=== PATIENT | female | born 1950 | race Caucasian/White ===

== ENCOUNTER 2021-05-11 07:53 | Emergency (ER) | payer MEDICARE, BC ==
[2021-05-11] MEDS ORDERED: Ondansetron 4 MG/2 ML SDV IVPUSH ONE (08:23)
[2021-05-11] MEDS ORDERED: Sodium Chloride 0.9% 10 ML Syringe FLUSH PRN (08:23)
[2021-05-11] MEDS ORDERED: Dexamethasone 4 MG/ML SDV IVPUSH ONE (08:26)
[2021-05-11] MEDS ORDERED: Sodium Chloride 0.9% 1,000 ML IV SCH (08:30)
--- NOTE | 2021-05-11 08:34 | EDM.PDOC ---
ED HPI GENERAL MEDICAL PROBLEM - General Chief Complaint: Respiratory Problem Stated Complaint: COVID+ SOB Time Seen by Provider: 05/11/21 08:10 Source of Information: Reports: Patient History Limitations: Reports: No Limitations - History of Present Illness INITIAL COMMENTS - FREE TEXT/NARRATIVE: The patient presents with a cough, generalized weakness and hematuria. She was diagnosed with COVID 19 on Wednesday and is not feeling worse. She says she has a cough, generalized weakness and pain in her throat. She has no chest pain. She does not feel short of breath. She has no abdominal pain. She has some nausea. She has no fever or chills. She also has hematuria. She says she was recently diagnosed with a kidney stone. She was put on flomax but never had a chance to get the prescription filled. She has no flank pain at this time. Her had COVID 19 and he got REGEN-COV. She said he was down for a day and she does not want the REGEN-COV. She feels it was that and not the virus that made him really sick for a day. She has a history of CAD with a stent and CABG. She also has a history of HTN. Onset: Gradual Duration: Day(s): (5) Location: Reports: Other (throat) Quality: Reports: Sharp Severity: Moderate Improves with: Reports: None Worsens with: Reports: None Associated Symptoms: Reports: Cough, Nausea/Vomiting. Denies: Chest Pain, Fever/Chills, Headaches, Shortness of Breath Generalized Pain Score (Numeric/FACES): 5 - Related Data Allergies Allergy/AdvReac Type Severity Reaction Status Date / Time amoxicillin Allergy Nausea and Verified 05/11/21 08:14 Vomiting clopidogrel bisulfate Allergy Rash Verified 05/11/21 08:14 [From Plavix] tetracycline Allergy Rash Verified 05/11/21 08:14 Home Meds: Home Meds Furosemide [Lasix] 20 mg PO DAILY 05/11/21 [History] Isosorbide Mononitrate [Imdur] 60 mg PO DAILY 05/11/21 [History] LORazepam [Ativan] 1 mg PO TID 05/11/21 [History] Metoprolol Succinate 50 mg PO DAILY 05/11/21 [History] atorvaSTATin [Lipitor] 40 mg PO DAILY 05/11/21 [History] cephALEXin [Keflex] 500 mg PO BID #10 cap 05/11/21 [Rx] dexAMETHasone [Dexamethasone] 6 mg PO Q6H #12 tab 05/11/21 [Rx] Past Medical History HEENT History: Reports: Cataract, Impaired Vision Cardiovascular History: Reports: [place], Stents Genitourinary History: Reports: Renal Calculus - Infectious Disease History Infectious Disease History: Reports: Novel Coronavirus Social & Family History - Tobacco Use Tobacco Use Status *Q: Never Tobacco User Second Hand Smoke Exposure: No - Caffeine Use Caffeine Use: Reports: Coffee - Recreational Drug Use Recreational Drug Use: No ED ROS GENERAL - Review of Systems Review Of Systems: See Below Constitutional: Reports: Malaise, Weakness, Fatigue. Denies: Fever, Chills HEENT: Reports: No Symptoms Respiratory: Reports: Cough. Denies: Shortness of Breath Cardiovascular: Reports: No Symptoms Endocrine: Reports: No Symptoms GI/Abdominal: Reports: Nausea. Denies: Abdominal Pain, Vomiting : Reports: Hematuria Musculoskeletal: Reports: No Symptoms ED EXAM, GENERAL - Physical Exam Exam: See Below Exam Limited By: No Limitations General Appearance: Alert, No Apparent Distress Ears: Normal External Exam Nose: Normal Inspection Throat/Mouth: Other (Dry mucus membranes and mild erythema of the oropharynx) Head: Atraumatic, Normocephalic Neck: Normal Inspection, Supple, Non-Tender Respiratory/Chest: No Respiratory Distress, Lungs Clear, Normal Breath Sounds Cardiovascular: Regular Rate, Rhythm, No Edema, No Murmur GI/Abdominal: Soft, Non-Tender, No Organomegaly, No Mass Back Exam: Normal Inspection Extremities: Normal Inspection Course - Vital Signs Last Recorded V/S: Last Vital Signs Temp 97.4 F 05/11/21 08:12 Pulse 87 05/11/21 08:12 Resp 18 05/11/21 08:12 BP 133/79 05/11/21 08:12 Pulse Ox 92 L 05/11/21 08:12 - Orders/Labs/Meds Orders: Active Orders 24 hr Category Date Time Status Cardiac Monitoring [RC] . DIRECTED Care 05/11/21 08:24 Active Oxygen Therapy [RC] PRN Care 05/11/21 08:24 Active Peripheral IV Care [RC] . DIRECTED Care 05/11/21 08:25 Active CULTURE URINE [MREF] Stat Lab 05/11/21 08:40 Received Sodium Chloride 0.9% [Normal Saline] 1,000 ml Med 05/11/21 08:30 Active IV .BOLUS Sodium Chloride 0.9% [Saline Flush] Med 05/11/21 08:23 Active 10 ml FLUSH ASDIRECTED PRN cefTRIAXone [Rocephin] 1 gm Med 05/11/21 09:36 Active Sodium Chloride 0.9% [Normal Saline] 100 ml IV ONETIME ED Antiemetic Medication Reflex [OM.PC] Stat Oth 05/11/21 08:24 Ordered Peripheral IV Insertion Adult [OM.PC] Stat Oth 05/11/21 08:23 Ordered Medication Orders Sodium Chloride (Normal Saline) 1,000 mls @ 1,000 mls/hr IV .BOLUS RIKY Last Admin: 05/11/21 08:36 Dose: 1,000 mls/hr Documented by: OMEGA Ceftriaxone Sodium 1 gm/ (Sodium Chloride) 100 mls @ 200 mls/hr IV ONETIME ONE Stop: 05/11/21 10:05 Last Admin: 05/11/21 09:53 Dose: 200 mls/hr Documented by: TIMOTHY Sodium Chloride (Sodium Chloride 0.9% 10 Ml Syringe) 10 ml FLUSH ASDIRECTED PRN PRN Reason: Keep Vein Open Last Admin: 05/11/21 08:37 Dose: 10 ml Documented by: OMEGA Labs: Laboratory Tests 05/11/21 05/11/21 05/11/21 Range/Units 08:20 08:20 08:20 WBC 4.50 (3.98-10.04) K/mm3 RBC 3.73 L (3.98-5.22) M/mm3 Hgb 11.1 L (11.2-15.7) gm/dl Hct 33.9 L (34.1-44.9) % MCV 90.9 (79.4-94.8) fl MCH 29.8 (25.6-32.2) pg MCHC 32.7 (32.2-35.5) g/dl RDW Std Deviation 49.0 H (36.4-46.3) fL Plt Count 175 L (182-369) K/mm3 MPV 10.6 (9.4-12.3) fl Neut % (Auto) 79.2 H (34.0-71.1) % Lymph % (Auto) 12.4 L (19.3-51.7) % [place] % (Auto) 7.8 (4.7-12.5) % Eos % (Auto) 0 L (0.7-5.8) Baso % (Auto) 0.2 (0.1-1.2) % Neut # (Auto) 3.56 (1.56-6.13) K/mm3 Lymph # (Auto) 0.56 L (1.18-3.74) K/mm3 [place] # (Auto) 0.35 (0.24-0.36) K/mm3 Eos # (Auto) 0.00 L (0.04-0.36) K/mm3 Baso # (Auto) 0.01 (0.01-0.08) K/mm3 PT 10.2 (9.7-12.0) SECONDS INR 0.95 APTT 27.9 (21.7-31.4) SECONDS D-Dimer, Quantitative 2.39 H (0.19-0.50) mg/L Sodium 136 (136-145) mEq/L Potassium 3.9 (3.5-5.1) mEq/L Chloride 100 (98-107) mEq/L Carbon Dioxide 23 (21-32) mEq/L Anion Gap 16.9 H (5-15) BUN 9 (7-18) mg/dL Creatinine 0.9 (0.55-1.02) mg/dL Est Cr Clr Drug Dosing 51.59 mL/min Estimated GFR (MDRD) > 60 (>60) mL/min BUN/Creatinine Ratio 10.0 L (14-18) Glucose 111 H (70-99) mg/dL Calcium 8.0 L (8.5-10.1) mg/dL Total Bilirubin 0.8 (0.2-1.0) mg/dL AST 64 H (15-37) U/L ALT 74 H (14-59) U/L Alkaline Phosphatase 50 (46-116) U/L C-Reactive Protein 2.4 H* (<1.0) mg/dL Total Protein 6.6 (6.4-8.2) g/dl Albumin 3.3 L (3.4-5.0) g/dl Globulin 3.3 gm/dL Albumin/Globulin Ratio 1.0 (1-2) Urine Color (Yellow) Urine Appearance (Clear) Urine pH (5.0-8.0) Ur Specific [place] (1.005-1.030) Urine Protein (Negative) Urine Glucose (UA) (Negative) Urine Ketones (Negative) Urine Occult Blood (Negative) Urine Nitrite (Negative) Urine Bilirubin (Negative) Urine Urobilinogen (0.2-1.0) Ur Leukocyte Esterase (Negative) Urine RBC (0-5) /hpf Urine WBC (0-5) /hpf Ur Epithelial Cells (0-5) /hpf Urine Bacteria (FEW) /hpf Urine Mucus (FEW) /hpf 05/11/21 Range/Units 08:40 WBC (3.98-10.04) K/mm3 RBC (3.98-5.22) M/mm3 Hgb (11.2-15.7) gm/dl Hct (34.1-44.9) % MCV (79.4-94.8) fl MCH (25.6-32.2) pg MCHC (32.2-35.5) g/dl RDW Std Deviation (36.4-46.3) fL Plt Count (182-369) K/mm3 MPV (9.4-12.3) fl Neut % (Auto) (34.0-71.1) % Lymph % (Auto) (19.3-51.7) % [place] % (Auto) (4.7-12.5) % Eos % (Auto) (0.7-5.8) Baso % (Auto) (0.1-1.2) % Neut # (Auto) (1.56-6.13) K/mm3 Lymph # (Auto) (1.18-3.74) K/mm3 [place] # (Auto) (0.24-0.36) K/mm3 Eos # (Auto) (0.04-0.36) K/mm3 Baso # (Auto) (0.01-0.08) K/mm3 PT (9.7-12.0) SECONDS INR APTT (21.7-31.4) SECONDS D-Dimer, Quantitative (0.19-0.50) mg/L Sodium (136-145) mEq/L Potassium (3.5-5.1) mEq/L Chloride (98-107) mEq/L Carbon Dioxide (21-32) mEq/L Anion Gap (5-15) BUN (7-18) mg/dL Creatinine (0.55-1.02) mg/dL Est Cr Clr Drug Dosing mL/min Estimated GFR (MDRD) (>60) mL/min BUN/Creatinine Ratio (14-18) Glucose (70-99) mg/dL Calcium (8.5-10.1) mg/dL Total Bilirubin (0.2-1.0) mg/dL AST (15-37) U/L ALT (14-59) U/L Alkaline Phosphatase (46-116) U/L C-Reactive Protein (<1.0) mg/dL Total Protein (6.4-8.2) g/dl Albumin (3.4-5.0) g/dl Globulin gm/dL Albumin/Globulin Ratio (1-2) Urine Color Red H (Yellow) Urine Appearance Slt cloudy H (Clear) Urine pH 7.0 (5.0-8.0) Ur Specific [place] 1.015 (1.005-1.030) Urine Protein 3+ H (Negative) Urine Glucose (UA) Negative (Negative) Urine Ketones Negative (Negative) Urine Occult Blood 3+ H (Negative) Urine Nitrite Negative (Negative) Urine Bilirubin 1+ H (Negative) Urine Urobilinogen 0.2 (0.2-1.0) Ur Leukocyte Esterase 1+ H (Negative) Urine RBC >100 H (0-5) /hpf Urine WBC 5-10 H (0-5) /hpf Ur Epithelial Cells 0-5 (0-5) /hpf Urine Bacteria Moderate H (FEW) /hpf Urine Mucus Not seen (FEW) /hpf Meds: Medications Generic Name Dose Route Start Last Admin Trade Name Freq PRN Reason Stop Dose Admin Sodium Chloride 1,000 mls @ 1,000 mls/hr 05/11/21 08:30 05/11/21 08:36 Normal Saline IV 1,000 mls/hr .BOLUS RIKY Administration Ceftriaxone Sodium 1 gm/ 100 mls @ 200 mls/hr 05/11/21 09:36 05/11/21 09:53 Sodium Chloride IV 05/11/21 10:05 200 mls/hr ONETIME ONE Administration Sodium Chloride 10 ml 05/11/21 08:23 05/11/21 08:37 Sodium Chloride 0.9% 10 Ml Syringe FLUSH 10 ml ASDIRECTED PRN Administration Keep Vein Open Discontinued Medications Generic Name Dose Route Start Last Admin Trade Name Sergey PRN Reason Stop Dose Admin Dexamethasone 6 mg 05/11/21 08:26 05/11/21 08:37 Dexamethasone 4 Mg/Ml Sdv IVPUSH 05/11/21 08:27 6 mg ONETIME ONE Administration Ondansetron HCl 4 mg 05/11/21 08:23 05/11/21 08:36 Ondansetron 4 Mg/2 Ml Sdv IVPUSH 05/11/21 08:24 4 mg ONETIME ONE Administration - Re-Assessments/Exams Free Text/Narrative Re-Assessment/Exam: 05/11/21 08:36 I ordered an IV NS 1L bolus, zofran 4mg IV, labs, UA, CXR and a CT of her abdomen and pelvis without contrast. 05/11/21 09:59 Her CXR shows bilateral COVID pneumonia. Her WBC was normal. Her Hgb was low at 11.1. Her D-dimer was elevated at 2.39. Her anion gap was elevated at 16.4. Her AST is elevated at 64. Her ALT is elevated at 74. Her CRP is 2.4. Her UA shows a UTI. I have ordered a urine culture and rocphin [address] shows patchy increased density on both sides of the chest most likely representing prominent areas of scarring but please exclude any symptoms of infection for pneumonia. Heart is enlarged with coronary artery calcification. Small nonobstructing stone within the lower right kidney. No ureteral dilatation or ureteral stone is seen. Small amount of free fluid within the pelvis which is nonspecific. Slightly dilated urine filled bladder probably due to non-voiding. Slight adenopathy within the upper right retroperitoneum but no other adenopathy within the upper right retroperitoneum but no other adenopathy is seen and this most likely is incidental. Follow up CT study could be obtained in 6 months to confirm stability. Other findings believed to be incidental. She is still oxygenating well. I gave her a dose of dexamethasone here and I will give her a prescription for more along with some keflex. Departure - Departure Time of Disposition: 10:25 Disposition: Home, Self-Care 01 Condition: Good Clinical Impression: COVID-19, Pneumonia due to COVID-19 virus UTI (urinary tract infection) Qualifiers: Urinary tract infection type: site unspecified Hematuria presence: without hematuria Qualified Code(s): N39.0 - Urinary tract infection, site not specified - Discharge Information *PRESCRIPTION DRUG MONITORING PROGRAM REVIEWED*: Not Applicable *COPY OF PRESCRIPTION DRUG MONITORING REPORT IN PATIENT CAMILO: Not Applicable Prescriptions: dexAMETHasone [Dexamethasone] 6 mg PO Q6H #12 tab cephALEXin [Keflex] 500 mg PO BID #10 cap Forms: ED Department Discharge Additional Instructions: Drink plenty of fluids. Take tylenol or motrin for any fever or pain. Take the dexamethasone 6mg or 1 1/2 pill by mouth daily until gone. Take the keflex 2 times per day for 5 days. Check your pulse oximetry a few times per day. If you are consistently below 90% please return. Please return if you feel worse. It has been helping with breathing if you can lay on you stomach. Try that through out the day. Follow up with your provider. Sepsis Event Note (ED) - Focused Exam Vital Signs: Vital Signs Temp Pulse Resp BP Pulse Ox 05/11/21 08:12 97.4 F 87 18 133/79 92 L - My Orders Last 24 Hours: My Active Orders 05/11/21 08:23 Sodium Chloride 0.9% [Saline Flush] 10 ml FLUSH ASDIRECTED PRN Peripheral IV Insertion Adult [OM.PC] Stat 05/11/21 08:24 Cardiac Monitoring [RC] . DIRECTED Oxygen Therapy [RC] PRN ED Antiemetic Medication Reflex [OM.PC] Stat 05/11/21 08:25 Peripheral IV Care [RC] . DIRECTED 05/11/21 08:30 Sodium Chloride 0.9% [Normal Saline] 1,000 ml IV .BOLUS 05/11/21 08:40 CULTURE URINE [MREF] Stat 05/11/21 09:36 cefTRIAXone [Rocephin] 1 gm Sodium Chloride 0.9% [Normal Saline] 100 ml IV ONETIME - Assessment/Plan Last 24 Hours: My Active Orders 05/11/21 08:23 Sodium Chloride 0.9% [Saline Flush] 10 ml FLUSH ASDIRECTED PRN Peripheral IV Insertion Adult [OM.PC] Stat 05/11/21 08:24 Cardiac Monitoring [RC] . DIRECTED Oxygen Therapy [RC] PRN ED Antiemetic Medication Reflex [OM.PC] Stat 05/11/21 08:25 Peripheral IV Care [RC] . DIRECTED 05/11/21 08:30 Sodium Chloride 0.9% [Normal Saline] 1,000 ml IV .BOLUS 05/11/21 08:40 CULTURE URINE [MREF] Stat 05/11/21 09:36 cefTRIAXone [Rocephin] 1 gm Sodium Chloride 0.9% [Normal Saline] 100 ml IV ONETIME
--- NOTE | 2021-05-11 09:33 | CT ---
CT abdomen and pelvis Technique: Multiple axial sections were obtained from above the dome of the diaphragm inferiorly through the pubic symphysis. Intravenous and oral contrast were not utilized. Study has been performed as a ureteral stone protocol. Reconstructed coronal and sagittal images were obtained. Comparison: No prior abdominal imaging. Findings: Patchy areas of increased density are seen on both sides of the chest. Findings could represent pneumonia although findings could also represent prominent areas of parenchymal scarring. Please correlate with the patient's symptoms. Heart is enlarged. Coronary artery calcification is noted. Small 2.2 mm stone is noted within the inferior right kidney. No other renal calculi are seen. No ureteral dilatation or ureteral stone is seen. No bladder calculi are noted. Bladder is somewhat dilated most likely due to lack of voiding. Liver contains no focal abnormality. Spleen appears within normal limits. Adrenal gland on the left side shows a nodule which most likely represents a benign adenoma measuring 1.7 cm. Pancreas shows no discrete abnormality. Gallbladder contains no calcified gallstones. Abdominal aorta shows atherosclerotic change which continues into the iliac vessels with no aneurysm. Slight adenopathy is noted within the upper retroperitoneum of the abdomen. Largest lymph node measures 1.5 cm. No other retroperitoneal or mesenteric abnormalities are seen. Appendix is seen which is normal. No pelvic mass or adenopathy is appreciated. Small amount of free fluid is noted within the pelvis. Bone window settings were reviewed which show scattered degenerative change throughout the spine as well as within both sacroiliac joints. Degenerative change is seen with the left hip with right hip prosthesis also noted. Impression: 1. Patchy increased density on both sides of the chest most likely representing prominent areas of scarring but please exclude any symptoms of infection for pneumonia. 2. Heart is enlarged with coronary artery calcification. 3. Small nonobstructing stone within the lower right kidney. No ureteral dilatation or ureteral stone is seen. 4. Small amount of free fluid within the pelvis which is nonspecific. 5. Slightly dilated urine filled bladder probably due to non-voiding. 6. Slight adenopathy within the upper right retroperitoneum but no other adenopathy is seen and this most likely is incidental. Follow-up CT study could be obtained in 6 months to confirm stability. 7. Other findings believed to be incidental. Diagnostic code #3
[2021-05-11] MEDS ORDERED: cefTRIAXone 1 GM in Sodium Chloride 0.9% 100 ML IV ONE (09:36)
--- NOTE | 2021-05-11 09:38 | CR ---
Chest: Portable view of the chest was obtained. Comparison: No prior chest imaging is available. Patchy areas of increased density are seen on both sides of the chest. Uncertain if this is chronic or due to numerous areas of pneumonia. Heart is enlarged. Tortuous thoracic aorta is seen. Bony structures are grossly intact. Impression: 1. Patchy areas of increased density on both sides of the chest. Uncertain if this is due to diffuse pneumonia (please exclude COVID disease) or to prominent scarring. 2. Cardiomegaly. Diagnostic code #3
== END 2021-05-11 10:50 | disposition home or self-care (01) ==
LOC: JD.ED 07:53
DX: U07.1 COVID-19 (principal); J12.82 Pneumonia due to coronavirus disease 2019; N39.0 Urinary tract infection, site not specified; I25.2 Old myocardial infarction; Z88.0 Allergy status to penicillin; Z88.8 Allergy status to other drugs, medicaments and biological substances; Z88.1 Allergy status to other antibiotic agents; Z79.899 Other long term (current) drug therapy
CPT/HCPCS: 36415; 71045; 74176; 80053; 81001; 85025; 85379; 85610; 85730; 86140; 87086; 87088; 87186; 96365; 96375; 99285; J0696; J1100; J2405; J7030; 99284

== ENCOUNTER 2021-05-14 08:49 | Emergency (ER) | payer MEDICARE, BC ==
[2021-05-14] MEDS ORDERED: Sodium Chloride 0.9% 10 ML Syringe FLUSH PRN ×2 (09:18→11:07)
--- NOTE | 2021-05-14 10:15 | CR ---
Chest: Portable view of the chest was obtained. Comparison: Prior chest x-ray of 05/11/21. Patchy areas of increased density are seen on both sides of the chest. Findings are without definite change from previous exam. Heart size is at the upper limits of normal. Upper mediastinum is normal. Mild scoliosis is noted within the spine with mild scattered degenerative change. Impression: 1. Patchy areas of increased density on both sides of the chest. Please correlate if patient is Covid positive. Findings are stable from prior chest x-ray. 2. Other findings believed to be chronic as noted above. Diagnostic code #3
[2021-05-14] MEDS: Morphine 4 MG/ML Syringe IVPUSH PRN ×2 (10:29→12:11)
--- NOTE | 2021-05-14 10:56 | EDM.PDOC ---
<Apolinar Devi - Last Filed: 05/15/21 20:50> ED HPI GENERAL MEDICAL PROBLEM - General Chief Complaint: Respiratory Problem Stated Complaint: COVID +/ KIDNEY PAIN Time Seen by Provider: 05/14/21 10:27 - Related Data Allergies Allergy/AdvReac Type Severity Reaction Status Date / Time amoxicillin Allergy Nausea and Verified 05/14/21 09:11 Vomiting clopidogrel bisulfate Allergy Rash Verified 05/14/21 09:11 [From Plavix] tetracycline Allergy Rash Verified 05/14/21 09:11 Home Meds: Home Meds Furosemide [Lasix] 20 mg PO DAILY 05/11/21 [History] Isosorbide Mononitrate [Imdur] 60 mg PO DAILY 05/11/21 [History] LORazepam [Ativan] 1 mg PO TID 05/11/21 [History] Metoprolol Succinate 50 mg PO DAILY 05/11/21 [History] atorvaSTATin [Lipitor] 40 mg PO DAILY 05/11/21 [History] cephALEXin [Keflex] 500 mg PO BID #10 cap 05/11/21 [Rx] dexAMETHasone [Dexamethasone] 6 mg PO Q6H #12 tab 05/11/21 [Rx] Departure - Departure Disposition: Home, Self-Care 01 Clinical Impression: Pneumonia due to COVID-19 virus UTI (urinary tract infection) Qualifiers: Urinary tract infection type: site unspecified Hematuria presence: without hematuria Qualified Code(s): N39.0 - Urinary tract infection, site not specified - Discharge Information <David Ortiz - Last Filed: 05/16/21 07:36> ED HPI GENERAL MEDICAL PROBLEM - History of Present Illness INITIAL COMMENTS - FREE TEXT/NARRATIVE: Patient arrived to ED by private vehicle Onset of symptoms was 1 week ago Endorses occurrence of: - body aches - right flank pain - cough - shortness of breath No fever, vomiting, diarrhea COVID-19 testing was positive 05/06/2021 Concerned about possible kidney stone due to flank pain Feels like symptoms are getting worse She was seen here 05/11/2021 and prescribed antibiotics for UTI but did not get prescription filled until yesterday Generalized Pain Score (Numeric/FACES): 7 Past Medical History HEENT History: Reports: Cataract, Impaired Vision Cardiovascular History: Reports: VA, Stents Genitourinary History: Reports: Renal Calculus - Infectious Disease History Infectious Disease History: Reports: Novel Coronavirus Social & Family History - Tobacco Use Tobacco Use Status *Q: Never Tobacco User Second Hand Smoke Exposure: No - Caffeine Use Caffeine Use: Reports: Coffee - Recreational Drug Use Recreational Drug Use: No ED ROS GENERAL - Review of Systems Review Of Systems: See Below Free Text/Narrative/Comment: Constitutional - no fever; malaise Eyes - no eye pain; no visual disturbance ENT - no rhinorrhea; no congestion; no epistaxis Cardiovascular - no chest pain Respiratory - shortness of breath; cough Gastrointestinal - no abdominal pain; no nausea; no vomiting; no diarrhea; flank pain Genitourinary - no dysuria Musculoskeletal - no neck pain; no back pain; no extremity injury; myalgia Neurological - no headache; no speech disturbance; no weakness ED EXAM, GENERAL - Physical Exam Exam: See Below Free Text/Narrative:: Constitutional - awake; alert; mild pain distress Head - no facial swelling or weakness Eyes - extra ocular motion intact; conjunctiva normal ENT - no nasal deformity; no epistaxis; normal phonation; mucus membranes moist Neck - no swelling Respiratory - normal respiratory effort; mild, bibasilar crackles; no wheezing; no stridor Cardiovascular - regular rhythm; normal rate; S1; S2; grade 1/6 systolic murmur GI/Abdomen - normal bowel sounds; soft; no tenderness; no rebound; no guarding; no mass; right CVA tenderness Musculoskeletal - grossly normal strength and motion; no swelling or deformity Skin - warm; dry Neurologic - normal speech; no weakness Psychiatric - normal mood and affect; memory and attention normal Course - Vital Signs Text/Narrative:: . Considered etiologies included: COVID-19, dyspnea, pneumonia, flank pain, UTI, pyelonephritis, kidney stone Symptoms and examination were discussed Investigations were initiated Analgesic treatment was provided with morphine Consideration for monoclonal antibody infusion was discussed with patient Patient was provided the medication "Fact Sheet for Patients and Parents/C aregivers" for review This included statement that therapy was approved under emergent use authorization, with no certainty of benefit, and potential risks/adverse reactions Patient voiced understanding with no questions or concerns, and agreed to proceed with infusion Antibody infusion was completed without apparent adverse reactions Review of CT results with patient was delayed due to other ED patient care priorities Patient left ED without discharge instructions, and prior to discussion of CT results Urine culture results from 05/11/2021 indicated E. coli with sensitivity to cefazolin She had been prescribed cephalexin at that encounter, and no change in therapy was indicated Last Recorded V/S: Last Vital Signs Temp 36.3 C 05/14/21 09:09 Pulse 86 05/14/21 09:09 Resp 20 05/14/21 09:09 BP 147/76 H 05/14/21 09:09 Pulse Ox 91 L 05/14/21 09:09 - Orders/Labs/Meds Labs: Laboratory Tests 05/14/21 05/14/21 05/14/21 Range/Units 09:20 09:20 09:20 WBC 10.26 H (3.98-10.04) K/mm3 RBC 3.79 L (3.98-5.22) M/mm3 Hgb 11.2 (11.2-15.7) gm/dl Hct 34.6 (34.1-44.9) % MCV 91.3 (79.4-94.8) fl MCH 29.6 (25.6-32.2) pg MCHC 32.4 (32.2-35.5) g/dl RDW Std Deviation 48.2 H (36.4-46.3) fL Plt Count 252 D (182-369) K/mm3 MPV 10.3 (9.4-12.3) fl Neut % (Auto) 81.2 H (34.0-71.1) % Lymph % (Auto) 8.6 L (19.3-51.7) % Rhea % (Auto) 9.5 (4.7-12.5) % Eos % (Auto) 0 L (0.7-5.8) Baso % (Auto) 0.1 (0.1-1.2) % Neut # (Auto) 8.34 H (1.56-6.13) K/mm3 Lymph # (Auto) 0.88 L (1.18-3.74) K/mm3 Rhea # (Auto) 0.97 H (0.24-0.36) K/mm3 Eos # (Auto) 0.00 L (0.04-0.36) K/mm3 Baso # (Auto) 0.01 (0.01-0.08) K/mm3 Sodium 142 (136-145) mEq/L Potassium 3.8 (3.5-5.1) mEq/L Chloride 105 (98-107) mEq/L Carbon Dioxide 23 (21-32) mEq/L Anion Gap 17.8 H (5-15) BUN 15 (7-18) mg/dL Creatinine 0.9 (0.55-1.02) mg/dL Est Cr Clr Drug Dosing 51.59 mL/min Estimated GFR (MDRD) > 60 (>60) mL/min BUN/Creatinine Ratio 16.7 (14-18) Glucose 99 (70-99) mg/dL Calcium 8.3 L (8.5-10.1) mg/dL Total Bilirubin 0.9 (0.2-1.0) mg/dL AST 53 H (15-37) U/L ALT 114 H (14-59) U/L Alkaline Phosphatase 49 (46-116) U/L Troponin I < 0.017 (0.00-0.056) ng/mL Total Protein 6.7 (6.4-8.2) g/dl Albumin 3.1 L (3.4-5.0) g/dl Globulin 3.6 gm/dL Albumin/Globulin Ratio 0.9 L (1-2) Urine Color [place] H (Yellow) Urine Appearance Clear (Clear) Urine pH 7.5 (5.0-8.0) Ur Specific [place] 1.015 (1.005-1.030) Urine Protein 2+ H (Negative) Urine Glucose (UA) Negative (Negative) Urine Ketones Negative (Negative) Urine Occult Blood 3+ H (Negative) Urine Nitrite Negative (Negative) Urine Bilirubin Negative (Negative) Urine Urobilinogen 0.2 (0.2-1.0) Ur Leukocyte Esterase Negative (Negative) Urine RBC 50-75 H (0-5) /hpf Urine WBC 0-5 (0-5) /hpf Ur Squamous Epith Cells 0-5 (0-5) /hpf Urine Bacteria Few (FEW) /hpf Urine Mucus Few (FEW) /hpf Meds: Medications Discontinued Medications Generic Name Dose Route Start Last Admin Trade Name Freq PRN Reason Stop Dose Admin Diphenhydramine HCl 50 mg 05/14/21 11:49 Diphenhydramine 50 Mg/Ml Sdv IVPUSH ONETIME PRN hypersensitivity reaction Epinephrine HCl 0.3 mg 05/14/21 11:49 Epinephrine 1 Mg/Ml Sdv IM ONETIME PRN hypersensitivity reaction Famotidine 20 mg 05/14/21 11:49 Famotidine 20 Mg/2 Ml Sdv IVPUSH ONETIME PRN hypersensitivity reaction CASIRIVIMAB/IMDEVIMAB 10 ml/ 110 mls @ 220 mls/hr 05/14/21 11:49 05/14/21 12:11 Sodium Chloride IV 05/14/21 12:18 220 mls/hr ONETIME ONE Administration Iopamidol 100 ml 05/14/21 11:07 05/14/21 11:48 Iopamidol 612 Mg/Ml 100 Ml Bottle IVPUSH 05/14/21 11:08 100 ml ONETIME ONE Administration Methylprednisolone Sodium Succinate 125 mg 05/14/21 11:49 Methylprednisolone Sodium Succinate 125 Mg/2 Ml Sdv IVPUSH ONETIME PRN hypersensitivity reaction Morphine Sulfate 2 mg 05/14/21 10:22 05/14/21 12:11 Morphine 4 Mg/Ml Syringe IVPUSH 2 mg Q20M PRN Administration Pain Sodium Chloride 10 ml 05/14/21 09:18 05/14/21 09:31 Sodium Chloride 0.9% 10 Ml Syringe FLUSH 10 ml ASDIRECTED PRN Administration Keep Vein Open Sodium Chloride 10 ml 05/14/21 11:07 05/14/21 11:48 Sodium Chloride 0.9% 10 Ml Syringe FLUSH 10 ml ONETIME PRN Administration IV FLUSH Sodium Chloride 30 ml 05/14/21 12:00 Sodium Chloride 0.9% 10 Ml Syringe FLUSH ASDIRECTED RIKY - Radiology Interpretation Free Text/Narrative:: XR chest, AP portable, radiology interpretation: 1. Patchy areas of increased density on both sides of the chest. Please correlate if patient is Covid positive. Findings are stable from prior chest x- ray CT abdomen/pelvis, IV contrast, radiology interpretation: IMPRESSION: 1. Most prominent finding is abnormal perfusion within the mid and upper right kidney as well as dilated proximal right ureter with surrounding inflammatory change. Findings most likely represent severe pyelonephritis with ureteral change representing additional infection. 2. 2 small nonobstructing calculi within the right kidney 3. Stable findings of COVID pneumonia within both lungs 4. Stable lymph nodes within the posterior upper right abdomen. As mentioned on prior report, follow-up study is recommended in 6 months. 5. Other findings as described above are also stable. Departure - Departure Time of Disposition: 14:45 (left during treatment)
[2021-05-14] MEDS ORDERED: Iopamidol 612 MG/ML 100 ML Bottle IVPUSH ONE (11:07)
[2021-05-14] MEDS ORDERED: diphenhydrAMINE 50 MG/ML SDV IVPUSH PRN (11:49)
[2021-05-14] MEDS ORDERED: EPINEPHrine 1 MG/ML SDV IM PRN (11:49)
[2021-05-14] MEDS ORDERED: Famotidine 20 MG/2 ML SDV IVPUSH PRN (11:49)
[2021-05-14] MEDS ORDERED: methylPREDNISolone Sodium Succinate 125 MG/2 ML SDV IVPUSH PRN (11:49)
[2021-05-14] MEDS ORDERED: Sodium Chloride 0.9% 10 ML Syringe FLUSH SCH (12:00)
--- NOTE | 2021-05-14 12:56 | CT ---
CT abdomen and pelvis Technique: Multiple axial sections were obtained from above the dome of the diaphragm inferiorly through the pubic symphysis. Intravenous contrast was initially not utilized. Study was repeated after administration of intravenous contrast. Delayed images were obtained through the abdomen and pelvis. Reconstructed coronal and sagittal images were also obtained. Comparison: Prior CT abdomen and pelvis study of 05/11/21. Findings: Right kidney shows diffusely diminished perfusion within the mid and upper pole. This is most likely due to prominent pyelonephritis. There is mildly dilated proximal right ureter with surrounding inflammatory change also likely due to infection. Inferior pole of the right kidney appears normal in perfusion. Left kidney appears normal in perfusion. Two small nonobstructing calculi are noted within the inferior right kidney measuring around 2 to 3 mm. Left kidney shows no abnormal calcifications. Following contrast administration there is contrast being noted within both ureters as well as within the bladder. No findings of ureteral obstruction are seen. Visualized lung bases show diffuse increased density which appears similar to prior exam most likely representing stable COVID pneumonia. Liver contains no focal abnormality. Spleen is felt to be within normal limits. Gallbladder contains no calcified gallstones. Pancreas shows no discrete abnormality. Abdominal aorta shows atherosclerotic change without aneurysm. Left adrenal gland shows a small nodule measuring 1.7 cm most likely representing benign adenoma. Several lymph nodes are seen within the upper abdomen next to the retroperitoneum which are stable. No retroperitoneal adenopathy or mesenteric abnormalities are otherwise seen. Appendix is seen which is normal. No pelvic mass or adenopathy is seen. Bladder is somewhat dilated from urine. Bone window settings were reviewed which show previous surgery within the right hip. Degenerative change is seen scattered within the spine as well as within the sacroiliac joints. Mild joint space narrowing and cystic change are noted within the left hip. Impression: 1. Most prominent finding is abnormal perfusion within the mid and upper right kidney as well as dilated proximal right ureter with surrounding inflammatory change. Findings most likely represent severe pyelonephritis with ureteral change representing additional infection. 2. Two small nonobstructing calculi within the right kidney. 3. Stable findings of COVID pneumonia within both lungs. 4. Stable lymph nodes within the posterior upper right abdomen. As mentioned on prior report, follow-up study is recommended in 6 months. 5. Other findings as described above are also stable. Diagnostic code #3
== END 2021-05-14 14:45 | disposition home or self-care (01) ==
LOC: JD.ED 08:49
DX: U07.1 COVID-19 (principal); J12.82 Pneumonia due to coronavirus disease 2019; N39.0 Urinary tract infection, site not specified; I25.2 Old myocardial infarction; Z88.0 Allergy status to penicillin; Z88.8 Allergy status to other drugs, medicaments and biological substances; Z86.16 Personal history of COVID-19; Z79.899 Other long term (current) drug therapy
CPT/HCPCS: 36415; 71045; 74177; 80053; 81001; 84484; 85025; 96374; 96376; 99284; J2270; M0243; Q0243; Q9967

== ENCOUNTER 2021-07-11 05:07 | Inpatient (IN) | payer MEDICARE, BC ==
--- NOTE | 2021-07-11 05:24 | EDM.PDOC ---
<Fabien Huerta - Last Filed: 07/11/21 07:53> ED HPI GENERAL MEDICAL PROBLEM - General Chief Complaint: Cardiovascular Problem Stated Complaint: [facility] Time Seen by Provider: 07/11/21 05:19 - History of Present Illness INITIAL COMMENTS - FREE TEXT/NARRATIVE: 71-year-old female brought in by EMS with suspected worsening congestive heart failure. Patient was recently diagnosed with heart failure. She was found to be in A. fib and yesterday she was started on Cardizem CD 120 mg daily and was started on Eliquis. Her first dose of both these medications was yesterday evening. Prior to this the patient was taking Toprol-XL 50 mg tablets 1 twice daily. Further complicating patient's situation patient had a port placed about 2-1/2 weeks ago. She just started chemotherapy for bladder cancer that has spread outside the bladder. 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 Her is able to provide most the history with her [place] discharge instructions. She was seen in the clinic yesterday and was started on therapy for the A. fib it sounds like. At this time the patient denies any pain. Her biggest complaint is she just cannot get any rest and she is very tired. - Related Data Allergies Allergy/AdvReac Type Severity Reaction Status Date / Time clopidogrel bisulfate Allergy Rash Verified 07/11/21 05:22 [From Plavix] tetracycline Allergy Rash Verified 07/11/21 05:22 amoxicillin AdvReac Nausea and Verified 07/11/21 15:36 Vomiting Home Meds: Home Meds Furosemide [Lasix] 20 mg PO DAILY 05/11/21 [History] Isosorbide Mononitrate [Imdur] 60 mg PO BID 05/11/21 [History] LORazepam [Ativan] 1 mg PO TID PRN 05/11/21 [History] Metoprolol Succinate 75 mg PO BID 05/11/21 [History] atorvaSTATin [Lipitor] 40 mg PO DAILY 05/11/21 [History] Apixaban [Eliquis] 5 mg PO BID 07/11/21 [History] Diltiazem [Cardizem CD] 120 mg PO DAILY 07/11/21 [History] Ezetimibe [Zetia] 10 mg PO DAILY 07/11/21 [History] Magnesium 250 mg PO DAILY 07/11/21 [History] Morphine [MS Contin] 15 mg PO QPM 07/11/21 [History] Morphine [MS Contin] 30 mg PO BID 07/11/21 [History] Nitroglycerin [Nitrostat] 0.4 mg SL ASDIRECTED 07/11/21 [History] OLANZapine [ZyPREXA] 10 mg PO BEDTIME 07/11/21 [History] Ondansetron [Zofran] 8 mg PO TID PRN 07/11/21 [History] Prochlorperazine Maleate [Compazine] 10 mg PO QID PRN 07/11/21 [History] dexAMETHasone [Decadron] 4 mg PO ASDIRECTED 07/11/21 [History] oxyCODONE HCl/Acetaminophen [Oxycodone-Acetaminophen 5-325] 1 tab PO Q6HR PRN 07/11/21 [History] Past Medical History HEENT History: Reports: Cataract, Impaired Vision Cardiovascular History: Reports: OK, Stents Genitourinary History: Reports: Renal Calculus - Infectious Disease History Infectious Disease History: Reports: Novel Coronavirus Social & Family History - Caffeine Use Caffeine Use: Reports: Coffee ED ROS GENERAL - Review of Systems Review Of Systems: See Below Constitutional: Reports: Weakness, Fatigue HEENT: Reports: No Symptoms Respiratory: Reports: No Symptoms Cardiovascular: Denies: Chest Pain Endocrine: Reports: Fatigue GI/Abdominal: Reports: No Symptoms : Reports: No Symptoms Musculoskeletal: Reports: No Symptoms Skin: Reports: No Symptoms Neurological: Reports: No Symptoms Hematologic/Lymphatic: Denies: Easy Bleeding, Easy Bruising ED EXAM, GENERAL - Physical Exam Exam Limited By: Other (She is a little slow to answer questions and formulate her thoughts) General Appearance: Lethargic, Other (He has mild hypotension and a mild tachycardia her color is pale) Head: Atraumatic, Normocephalic Neck: Normal Inspection, Supple, Non-Tender, Full Range of Motion Respiratory/Chest: No Accessory Muscle Use, Decreased Breath Sounds, Crackles (Basilar crackles) Cardiovascular: No JVD (No significant JVD ), No Murmur, Tachycardia, Irre gularly Irregular GI/Abdominal: Normal Bowel Sounds, Soft, Non-Tender Back Exam: No: CVA Tenderness (L), CVA Tenderness (R) Extremities: Pedal Edema (3+ pitting edema bilaterally) Neurological: Alert, Slow to Respond Skin Exam: Warm, Dry, Intact Course - Re-Assessments/Exams Free Text/Narrative Re-Assessment/Exam: 07/11/21 07:35 [place] 1 call has no beds available initially I was concerned about a cardi ogenic shock however her white count came back at 22,000 her white count yesterday after being able to obtain her [place] labs showed a white count of 30,000. The patient was started on Eliquis late yesterday afternoon at approximately 9 PM the patient had significant large amounts of gross hematuria according to the this is clearing. Her hemoglobin hematocrit is low especially with her cardiac status. We will transfuse 2 units. Hold the Eliquis with the hematuria. Chest x-ray shows a right lower lobe infiltrate with a effusion the patient will receive 2 g of cefepime after blood cultures obtained. Patient was started on BiPAP and this seems to be helping somewhat the patient is certainly more comfortable. Even though she is in florid failure she will be given NS at 125 cc an hour. her potassium yesterday was 5.8 she will get 40 mg of IV Lasix. 07/11/21 07:40 At this time it is change of shift further care and disposition per Dr. Devi Departure - Departure Disposition: Admitted As Inpatient 66 Clinical Impression: Persistent atrial fibrillation with RVR, H/O primary malignant neoplasm of urinary bladder, Hyperkalemia, Volume depletion, Gross hematuria, Recurrent right pleural effusion Congestive heart failure Qualifiers: Heart failure type: unspecified Heart failure chronicity: acute Qualified Code(s): I50.9 - Heart failure, unspecified Metastatic cancer to lung Qualifiers: Laterality: right Qualified Code(s): C78.01 - Secondary malignant neoplasm of right lung Anemia Qualifiers: Anemia type: unspecified type Qualified Code(s): D64.9 - Anemia, unspecified Leukocytosis Qualifiers: Leukocytosis type: bandemia Qualified Code(s): D72.825 - Bandemia Pneumonia involving right lung Qualifiers: Pneumonia type: due to other aerobic Gram-negative bacteria Lung location: lower lobe of lung Qualified Code(s): J15.6 - Pneumonia due to other Gram- negative bacteria <Apolinar Devi - Last Filed: 07/11/21 16:28> ED EXAM, GENERAL - Physical Exam Exam: See Below Course - Vital Signs Last Recorded V/S: Last Vital Signs Temp 36.3 C 07/11/21 13:30 Pulse 149 H 07/11/21 14:32 Resp 16 07/11/21 14:30 BP 102/56 L 07/11/21 14:30 Pulse Ox 100 07/11/21 14:30 - Orders/Labs/Meds Orders: Active Orders 24 hr Category Date Time Status Admission Status [Patient Status] [ADT] Routine ADT 07/11/21 15:08 Active ABG [RT Arterial Blood Gases, ABG] [RC] Click to Edit Care 07/11/21 06:32 Active Bedrest Bedside Commode [RC] ASDIRECTED Care 07/11/21 15:39 Active Cardiac Monitoring [RC] CONTINUOUS Care 07/11/21 15:40 Active Oxygen Therapy [RC] PRN Care 07/11/21 15:40 Active RT BiPAP/CPAP [RC] ASDIRECTED Care 07/11/21 06:13 Active VTE/DVT Education [RC] PER UNIT ROUTINE Care 07/11/21 15:40 Active Vital Signs [RC] Q4H Care 07/11/21 15:40 Active BLOOD CULTURE [MREF] Stat Lab 07/11/21 06:58 Received BLOOD CULTURE [MREF] Stat Lab 07/11/21 07:00 Received CBC WITH AUTO DIFF [HEME] AM Lab 07/12/21 05:11 Ordered COMPREHENSIVE METABOLIC PN,CMP [CHEM] AM Lab 07/12/21 05:11 Ordered LACTIC ACID [CHEM] Stat Lab 07/11/21 15:50 Received MAGNESIUM [CHEM] AM Lab 07/12/21 05:11 Ordered Acetaminophen/oxyCODONE [Percocet 325-5 MG] Med 07/11/21 15:30 Active 1 tab PO Q6H PRN Diltiazem [Cardizem] 100 mg Med 07/11/21 08:15 Active Sodium Chloride 0.9% [Normal Saline AdvBag] 100 ml IV TITRATE Furosemide [Lasix] Med 07/11/21 09:00 Active 40 mg IVPUSH DAILY Isosorbide Mononitrate [Imdur] Med 07/11/21 21:00 Active 60 mg PO BID LORazepam [Ativan] Med 07/11/21 15:30 Active 1 mg PO TID PRN Magnesium Oxide Med 07/12/21 09:00 Active 400 mg PO DAILY Metoprolol Succinate [Toprol XL] Med 07/11/21 21:00 Active 75 mg PO BID Morphine [MS Contin] Med 07/12/21 12:00 Active 15 mg PO DAILY@1200 Morphine [MS Contin] Med 07/11/21 20:00 Active 30 mg PO BID@0400,2000 OLANZapine Med 07/11/21 21:00 Pending 10 mg PO BEDTIME Ondansetron [Zofran ODT] Med 07/11/21 15:30 Active 8 mg PO TID PRN Prochlorperazine [Compazine] Med 07/11/21 15:30 Active 10 mg PO QID PRN Sodium Chloride 0.9% [Normal Saline] 1,000 ml Med 07/11/21 07:30 Active IV ASDIRECTED cefTRIAXone [Rocephin] 2 gm Med 07/12/21 09:00 Active Sodium Chloride 0.9% [Normal Saline AdvBag] 100 ml IV Q24H Blood Culture x2 Reflex Set [OM.PC] Stat Ot 07/11/21 06:31 Ordered Transfuse PRBC [Transfuse Red Blood Cells] [COMM] Stat Ot 07/11/21 07:27 Ordered VTE Mechanical Contraindications [AST] Per Unit Routine Oth 07/11/21 15:39 Ordered VTE Pharmacological Contraindications [AST] Per Unit Oth 07/11/21 15:39 Ordered Routine Resuscitation Status Routine Resus Stat 07/11/21 15:39 Ordered Medication Orders Furosemide (Furosemide 40 Mg/4 Ml Vial) 40 mg IVPUSH DAILY RIKY Last Admin: 07/11/21 07:32 Dose: 40 mg Documented by: FOSTCHR Sodium Chloride (Normal Saline) 1,000 mls @ 75 mls/hr IV ASDIRECTED RIKY Last Admin: 07/11/21 07:29 Dose: 125 mls/hr Documented by: FOSTCHR Diltiazem HCl 100 mg/ Sodium (Chloride) 100 mls @ 10 mls/hr IV TITRATE RIKY; Protocol Last Admin: 07/11/21 09:18 Dose: 10 mg/hr, 10 mls/hr Documented by: FOSTCHR Ceftriaxone Sodium 2 gm/ (Sodium Chloride) 100 mls @ 200 mls/hr IV Q24H RIKY Diltiazem HCl 100 mg/ Sodium (Chloride) 100 mls @ 10 mls/hr IV TITRATE [facility] Isosorbide Mononitrate (Isosorbide Mononitrate 60 Mg Tab.Er) 60 mg PO BID [facility] Lorazepam (Lorazepam 1 Mg Tab) 1 mg PO TID PRN PRN Reason: Anxiety Magnesium Oxide (Magnesium Oxide 400 Mg Tab) 400 mg PO DAILY [facility] Metoprolol Succinate (Metoprolol Succinate 25 Mg Tab.Er) 75 mg PO BID [facility] Morphine Sulfate (Morphine 15 Mg Tab.Er) 15 mg PO DAILY@1200 [facility] Morphine Sulfate (Morphine 15 Mg Tab.Er) 30 mg PO BID@0400,2000 [facility] Non-Formulary Medication (Olanzapine) 10 mg PO BEDTIME [facility] Nystatin (Nystatin Susp 100,000 Unit/Ml 5 Ml Ud Cup) 5 ml PO TID RIKY Ondansetron HCl (Ondansetron 4 Mg Tab.Dis) 8 mg PO TID PRN PRN Reason: Nausea Oxycodone/Acetaminophen (Acetaminophen/Oxycodone 325-5 Mg Tab) 1 tab PO Q6H PRN PRN Reason: Pain (severe 7-10) Prochlorperazine Maleate (Prochlorperazine 5 Mg Tab) 10 mg PO QID PRN PRN Reason: Vomiting Labs: Laboratory Tests 07/11/21 07/11/21 07/11/21 Range/Units 05:42 05:42 05:42 WBC 22.02 H (3.98-10.04) K/mm3 RBC 2.85 L (3.98-5.22) M/mm3 Hgb 8.0 L D (11.2-15.7) gm/dl Hct 25.8 L (34.1-44.9) % MCV 90.5 (79.4-94.8) fl MCH 28.1 (25.6-32.2) pg MCHC 31.0 L (32.2-35.5) g/dl RDW Std Deviation 59.0 H (36.4-46.3) fL Plt Count 358 D (182-369) K/mm3 MPV 9.1 L (9.4-12.3) fl Neut % (Auto) 94.6 H (34.0-71.1) % Lymph % (Auto) 0.6 L (19.3-51.7) % Oliver % (Auto) 1.9 L (4.7-12.5) % Eos % (Auto) 1.5 (0.7-5.8) Baso % (Auto) 0.0 L (0.1-1.2) % Neut # (Auto) 20.82 H (1.56-6.13) K/mm3 Lymph # (Auto) 0.14 L (1.18-3.74) K/mm3 Oliver # (Auto) 0.42 H (0.24-0.36) K/mm3 Eos # (Auto) 0.33 (0.04-0.36) K/mm3 Baso # (Auto) 0.00 L (0.01-0.08) K/mm3 Manual Slide Review Abnormal smear PT 11.8 (9.7-12.0) SECONDS INR 1.07 APTT 30.0 (21.7-31.4) SECONDS Puncture Site ABG pH (7.35-7.45) ABG pCO2 (35.0-45.0) mmHg ABG pO2 (80.0-100.0) mmHg ABG HCO3 (22.0-26.0) meq/L ABG O2 Saturation (96.0-97.0) % ABG Base Excess (-2-2.0) Salvador Test O2 Delivery Device FiO2 (21.00-100.00) % PEEP cmH20 Pressure Support cmH2O Sodium 126 L D (136-145) mEq/L Potassium 5.8 H D (3.5-5.1) mEq/L Chloride 95 L (98-107) mEq/L Carbon Dioxide 21 (21-32) mEq/L Anion Gap 15.8 H (5-15) BUN 52 H D (7-18) mg/dL Creatinine 1.3 H (0.55-1.02) mg/dL Est Cr Clr Drug Dosing 34.27 mL/min Estimated GFR (MDRD) 40 (>60) mL/min BUN/Creatinine Ratio 40.0 H (14-18) Glucose 116 H (70-99) mg/dL Lactic Acid (0.4-2.0) mmol/L Calcium 9.4 (8.5-10.1) mg/dL Total Bilirubin 1.0 (0.2-1.0) mg/dL AST 18 (15-37) U/L ALT 53 (14-59) U/L Alkaline Phosphatase 61 (46-116) U/L Troponin I < 0.017 (0.00-0.056) ng/mL NT-Pro-B Natriuret Pep (0-125) pg/mL Total Protein 5.6 L (6.4-8.2) g/dl Albumin 2.3 L (3.4-5.0) g/dl Globulin 3.3 gm/dL Albumin/Globulin Ratio 0.7 L (1-2) SARS-CoV-2 RNA (BHANU) (NEGATIVE) Blood Type Gel Antibody Screen Crossmatch 07/11/21 07/11/21 07/11/21 Range/Units 05:42 05:42 05:42 WBC (3.98-10.04) K/mm3 RBC (3.98-5.22) M/mm3 Hgb (11.2-15.7) gm/dl Hct (34.1-44.9) % MCV (79.4-94.8) fl MCH (25.6-32.2) pg MCHC (32.2-35.5) g/dl RDW Std Deviation (36.4-46.3) fL Plt Count (182-369) K/mm3 MPV (9.4-12.3) fl Neut % (Auto) (34.0-71.1) % Lymph % (Auto) (19.3-51.7) % Oliver % (Auto) (4.7-12.5) % Eos % (Auto) (0.7-5.8) Baso % (Auto) (0.1-1.2) % Neut # (Auto) (1.56-6.13) K/mm3 Lymph # (Auto) (1.18-3.74) K/mm3 Oliver # (Auto) (0.24-0.36) K/mm3 Eos # (Auto) (0.04-0.36) K/mm3 Baso # (Auto) (0.01-0.08) K/mm3 Manual Slide Review PT (9.7-12.0) SECONDS INR APTT (21.7-31.4) SECONDS Puncture Site ABG pH (7.35-7.45) ABG pCO2 (35.0-45.0) mmHg ABG pO2 (80.0-100.0) mmHg ABG HCO3 (22.0-26.0) meq/L ABG O2 Saturation (96.0-97.0) % ABG Base Excess (-2-2.0) Salvador Test O2 Delivery Device FiO2 (21.00-100.00) % PEEP cmH20 Pressure Support cmH2O Sodium (136-145) mEq/L Potassium (3.5-5.1) mEq/L Chloride (98-107) mEq/L Carbon Dioxide (21-32) mEq/L Anion Gap (5-15) BUN (7-18) mg/dL Creatinine (0.55-1.02) mg/dL Est Cr Clr Drug Dosing mL/min Estimated GFR (MDRD) (>60) mL/min BUN/Creatinine Ratio (14-18) Glucose (70-99) mg/dL Lactic Acid 2.1 H* (0.4-2.0) mmol/L Calcium (8.5-10.1) mg/dL Total Bilirubin (0.2-1.0) mg/dL AST (15-37) U/L ALT (14-59) U/L Alkaline Phosphatase (46-116) U/L Troponin I (0.00-0.056) ng/mL NT-Pro-B Natriuret Pep 95909 H (0-125) pg/mL Total Protein (6.4-8.2) g/dl Albumin (3.4-5.0) g/dl Globulin gm/dL Albumin/Globulin Ratio (1-2) SARS-CoV-2 RNA (BHANU) (NEGATIVE) Blood Type A POSITIVE Gel Antibody Screen Negative Crossmatch See Detail 07/11/21 07/11/21 07/11/21 Range/Units 06:35 08:05 09:41 WBC (3.98-10.04) K/mm3 RBC (3.98-5.22) M/mm3 Hgb (11.2-15.7) gm/dl Hct (34.1-44.9) % MCV (79.4-94.8) fl MCH (25.6-32.2) pg MCHC (32.2-35.5) g/dl RDW Std Deviation (36.4-46.3) fL Plt Count (182-369) K/mm3 MPV (9.4-12.3) fl Neut % (Auto) (34.0-71.1) % Lymph % (Auto) (19.3-51.7) % Oliver % (Auto) (4.7-12.5) % Eos % (Auto) (0.7-5.8) Baso % (Auto) (0.1-1.2) % Neut # (Auto) (1.56-6.13) K/mm3 Lymph # (Auto) (1.18-3.74) K/mm3 Oliver # (Auto) (0.24-0.36) K/mm3 Eos # (Auto) (0.04-0.36) K/mm3 Baso # (Auto) (0.01-0.08) K/mm3 Manual Slide Review PT (9.7-12.0) SECONDS INR APTT (21.7-31.4) SECONDS Puncture Site Lt radial ABG pH 7.46 H (7.35-7.45) ABG pCO2 27.8 L (35.0-45.0) mmHg ABG pO2 75.0 L (80.0-100.0) mmHg ABG HCO3 19.6 L (22.0-26.0) meq/L ABG O2 Saturation 95.2 L (96.0-97.0) % ABG Base Excess -3.2 L (-2-2.0) Salvador Test Positive O2 Delivery Device Bipap FiO2 21.00 (21.00-100.00) % PEEP 6.0 cmH20 Pressure Support 12.0 cmH2O Sodium (136-145) mEq/L Potassium (3.5-5.1) mEq/L Chloride (98-107) mEq/L Carbon Dioxide (21-32) mEq/L Anion Gap (5-15) BUN (7-18) mg/dL Creatinine (0.55-1.02) mg/dL Est Cr Clr Drug Dosing mL/min Estimated GFR (MDRD) (>60) mL/min BUN/Creatinine Ratio (14-18) Glucose (70-99) mg/dL Lactic Acid 2.1 H* (0.4-2.0) mmol/L Calcium (8.5-10.1) mg/dL Total Bilirubin (0.2-1.0) mg/dL AST (15-37) U/L ALT (14-59) U/L Alkaline Phosphatase (46-116) U/L Troponin I (0.00-0.056) ng/mL NT-Pro-B Natriuret Pep (0-125) pg/mL Total Protein (6.4-8.2) g/dl Albumin (3.4-5.0) g/dl Globulin gm/dL Albumin/Globulin Ratio (1-2) SARS-CoV-2 RNA (BHANU) Negative (NEGATIVE) Blood Type Gel Antibody Screen Crossmatch 07/11/21 07/11/21 Range/Units 12:49 12:49 WBC (3.98-10.04) K/mm3 RBC (3.98-5.22) M/mm3 Hgb (11.2-15.7) gm/dl Hct (34.1-44.9) % MCV (79.4-94.8) fl MCH (25.6-32.2) pg MCHC (32.2-35.5) g/dl RDW Std Deviation (36.4-46.3) fL Plt Count (182-369) K/mm3 MPV (9.4-12.3) fl Neut % (Auto) (34.0-71.1) % Lymph % (Auto) (19.3-51.7) % Oliver % (Auto) (4.7-12.5) % Eos % (Auto) (0.7-5.8) Baso % (Auto) (0.1-1.2) % Neut # (Auto) (1.56-6.13) K/mm3 Lymph # (Auto) (1.18-3.74) K/mm3 Oliver # (Auto) (0.24-0.36) K/mm3 Eos # (Auto) (0.04-0.36) K/mm3 Baso # (Auto) (0.01-0.08) K/mm3 Manual Slide Review PT (9.7-12.0) SECONDS INR APTT (21.7-31.4) SECONDS Puncture Site ABG pH (7.35-7.45) ABG pCO2 (35.0-45.0) mmHg ABG pO2 (80.0-100.0) mmHg ABG HCO3 (22.0-26.0) meq/L ABG O2 Saturation (96.0-97.0) % ABG Base Excess (-2-2.0) Salvador Test O2 Delivery Device FiO2 (21.00-100.00) % PEEP cmH20 Pressure Support cmH2O Sodium 129 L (136-145) mEq/L Potassium 4.9 (3.5-5.1) mEq/L Chloride 97 L (98-107) mEq/L Carbon Dioxide 21 (21-32) mEq/L Anion Gap 15.9 H (5-15) BUN 50 H (7-18) mg/dL Creatinine 1.3 H (0.55-1.02) mg/dL Est Cr Clr Drug Dosing 34.27 mL/min Estimated GFR (MDRD) 40 (>60) mL/min BUN/Creatinine Ratio 38.5 H (14-18) Glucose 109 H (70-99) mg/dL Lactic Acid 2.7 H* (0.4-2.0) mmol/L Calcium 8.9 (8.5-10.1) mg/dL Total Bilirubin 1.5 H (0.2-1.0) mg/dL AST 21 (15-37) U/L ALT 47 (14-59) U/L Alkaline Phosphatase 58 (46-116) U/L Troponin I < 0.017 (0.00-0.056) ng/mL NT-Pro-B Natriuret Pep (0-125) pg/mL Total Protein 5.1 L (6.4-8.2) g/dl Albumin 2.2 L (3.4-5.0) g/dl Globulin 2.9 gm/dL Albumin/Globulin Ratio 0.8 L (1-2) SARS-CoV-2 RNA (BHANU) (NEGATIVE) Blood Type Gel Antibody Screen Crossmatch Meds: Medications Generic Name Dose Route Start Last Admin Trade Name Freq PRN Reason Stop Dose Admin Furosemide 40 mg 07/11/21 09:00 07/11/21 07:32 Furosemide 40 Mg/4 Ml Vial IVPUSH 40 mg DAILY RIKY Administration Sodium Chloride 1,000 mls @ 75 mls/hr 07/11/21 07:30 07/11/21 07:29 Normal Saline IV 125 mls/hr ASDIRECTED RIKY Administration Diltiazem HCl 100 mg/ Sodium 100 mls @ 10 mls/hr 07/11/21 08:15 07/11/21 09:18 Chloride IV 10 mg/hr TITRATE RIKY 10 mls/hr Administration Protocol 10 MG/HR Ceftriaxone Sodium 2 gm/ 100 mls @ 200 mls/hr 07/12/21 09:00 Sodium Chloride IV Q24H RIKY Diltiazem HCl 100 mg/ Sodium 100 mls @ 10 mls/hr 07/11/21 16:30 Chloride IV TITRATE RIKY 10 MG/HR Isosorbide Mononitrate 60 mg 07/11/21 21:00 Isosorbide Mononitrate 60 Mg Tab.Er PO BID [facility] Lorazepam 1 mg 07/11/21 15:30 Lorazepam 1 Mg Tab PO TID PRN Anxiety Magnesium Oxide 400 mg 07/12/21 09:00 Magnesium Oxide 400 Mg Tab PO DAILY [facility] Metoprolol Succinate 75 mg 07/11/21 21:00 Metoprolol Succinate 25 Mg Tab.Er PO BID [facility] Morphine Sulfate 15 mg 07/12/21 12:00 Morphine 15 Mg Tab.Er PO DAILY@1200 [facility] Morphine Sulfate 30 mg 07/11/21 20:00 Morphine 15 Mg Tab.Er PO BID@0400,2000 [facility] Non-Formulary Medication 10 mg 07/11/21 21:00 Olanzapine PO BEDTIME [facility] Nystatin 5 ml 07/11/21 21:00 Nystatin Susp 100,000 Unit/Ml 5 Ml Ud Cup PO TID [facility] Ondansetron HCl 8 mg 07/11/21 15:30 Ondansetron 4 Mg Tab.Dis PO TID PRN Nausea Oxycodone/Acetaminophen 1 tab 07/11/21 15:30 Acetaminophen/Oxycodone 325-5 Mg Tab PO Q6H PRN Pain (severe 7-10) Prochlorperazine Maleate 10 mg 07/11/21 15:30 Prochlorperazine 5 Mg Tab PO QID PRN Vomiting Discontinued Medications Generic Name Dose Route Start Last Admin Trade Name Freq PRN Reason Stop Dose Admin Digoxin 250 mcg 07/11/21 10:15 07/11/21 10:26 Digoxin 500 Mcg/2 Ml Amp IVPUSH 07/11/21 10:16 250 mcg ONETIME ONE Administration Digoxin 125 mcg 07/11/21 12:30 Digoxin 500 Mcg/2 Ml Amp IVPUSH 07/11/21 12:31 ONETIME ONE Digoxin 125 mcg 07/11/21 14:30 07/11/21 14:32 Digoxin 500 Mcg/2 Ml Amp IVPUSH 07/11/21 14:31 125 mcg ONETIME ONE Administration Diltiazem HCl 5 mg 07/11/21 07:20 07/11/21 07:37 Diltiazem 50 Mg/10 Ml Sdv IVPUSH 07/11/21 07:21 5 mg ONETIME ONE Administration Diltiazem HCl 10 mg 07/11/21 08:42 07/11/21 08:49 Diltiazem 50 Mg/10 Ml Sdv IVPUSH 07/11/21 08:43 10 mg ONETIME ONE Administration Diltiazem HCl 10 mg 07/11/21 09:36 07/11/21 09:53 Diltiazem 50 Mg/10 Ml Sdv IVPUSH 07/11/21 09:37 10 mg ONETIME ONE Administration Diltiazem HCl 10 mg 07/11/21 09:53 07/11/21 10:44 Diltiazem 50 Mg/10 Ml Sdv IVPUSH 07/11/21 09:54 Not Given ONETIME ONE Furosemide 40 mg 07/11/21 14:00 07/11/21 12:34 Furosemide 40 Mg/4 Ml Vial IVPUSH 07/11/21 14:01 40 mg NOW ONE Administration Cefepime HCl 2 gm/ Sodium 50 mls @ 100 mls/hr 07/11/21 07:14 07/11/21 07:32 Chloride IV 07/11/21 07:43 100 mls/hr ONETIME ONE Administration - Re-Assessments/Exams Free Text/Narrative Re-Assessment/Exam: 07/11/21 08:05 Care has been assumed from Dr Huerta at change of shift. Will be placed on low dose Cardizem drip at 5mg/hr and tirate as blood preasure allows. Patient has been given Lasix 40 mg IV to help with congestive heart failure and to help lower blood potassium of 5.8. 2 units of packed red blood cells have been ordered and will be given each over 4 hours with Lasix in between units. We will continue to use low-dose Cardizem to bring atrial fibrillation rate under control starting with Cardizem drip at 5 mg/h. She has been giving cefepime 2 g IV for possible right lower lobar pneumonia as a cause of her markedly elevated white count with left shift. She appears clinically appears to have a small right-sided pleural effusion as well. To have metastatic cancer spread to the right lung both upper lobe and lower lobe. Initial chemotherapy was on July 08 and she is scheduled for repeat chemotherapy next week July 15 she of a 19 illness towards the end of April. COVID-19 screen today is negative. Currently on BiPAP 12 over 6 mmHg with FiO2 of 30%. 07/11/21 09:15 did speak through the 1 call service at [facility] in [place] and it would be no chance of getting her into an ICU bed. If we can bring her atrial fibrillation under control and improve her serum potassium levels and improve her oxygenation so that she could be off BiPAP she would be able to go to the floor. They will call later this afternoon if they have a bed available outside of the ICU. Currently heart rate is still atrial fibrillation in the 130s and up to 151. Will repeat Cardizem 10 mg IV bolus and increase her drip to 10 mg/h. Pressure is 95/60. Hopefully BP will come up once the heart rate is under control. 07/11/21 09:36 blood pressure is currently 108/71. 07/11/21 10:14 current atrial for bradycardia is anywhere from 129/154/min. Not responding at all to cart Cardizem intravenously. She has diuresed a good deal after 1 dose of Lasix 40 mg. Presumed improvement in serum potassium level. We will start digitalizing her with initial dose of digoxin 0.5 mg IV. Blood pressure currently is 100/43. But is now available and transfusion will be commenced shortly once second IV has been established. 07/11/21 11:12 Patient's first unit of blood has been started. She remains in atrial fibrillation at 130s to 140s. 2 sats are 95 to 96% on BiPAP BP is currently 80/43. He has received first dose of digoxin 0.5 mg IV. Tentatively she will be weaned off Cardizem drip over the next few hours. 07/11/21 11:45 current heart rate is 127/147-- atrial fibrillation. BP is improved to 111/63. O2 sats are 97% on BiPAP 12 over 6 mmHg with FI02 of 30. 07/11/21 12:03 she will be due for second dose of digoxin 0.125 mg IV at 1230. Blood pressures wavering between 90 and 110 systolic. O2 sats have improved to 99 to 100%. I am therefore going to take her off BiPAP at this time place her on oxygen by nasal prongs starting at 4 L/min. This will allow her to eat and drink. 07/11/21 12:45 O2 sats are staying 97 to 100% on 3 L/min by nasal cannula. She will be given a second dose of Lasix 40 mg IV after completion of first unit of packed red cells. 07/11/21 14:00 Repeat lactic acid this time is now 2.7 up from 2.1 on the last 2 occasions. She has been receiving limited IV fluids normal saline 100 mils an hour due to severe congestive heart failure and has finished first unit of packed cells. Sodium slightly improved to 129 and potassium is down to 4.9. Chloride 97 with a bicarb of 21. Anion gap is 15.9. BUN is 50 with a creatinine of 1.3 essentially unchanged. Glucose is 109. Total bilirubin is gone up to 1.5 from 1.0. Troponin I remains unchanged at less than 0.017. I am going to proceed with a 150 mill normal saline fluid bolus. 07/11/21 14:39 heart rate remains atrial fibrillation it is never gone below 100/min but is been as low as 104. It occasionally will spike up to 152. O2 sats are 98% on 3 L/min. Blood pressure is currently 102/56. I have given her 150 mils normal saline fluid bolus to improve peripheral blood flow and hopefully lower her lactic acid. She is receiving second unit of packed RBCs. She did receive Lasix 40 mg IV after completion of the first unit of blood. She received her third dose of digoxin which is 125 mcg IV at 1430 hrs. Free Text/Narrative Re-Assessment/Exam: 07/11/21 15:03 she is overall condition is slowly improving. Her atrial fib rate is still not under good control. It often will travel up into the 140s but it has been as low as 104. O2 sats are staying at 99% on 3 L. She could probably be reduced to 2 L/min. Blood pressure is improved to 117/57. I would advise third dose of Lasix 40 mg IV after completing second unit of packed red cells. Cardizem drip to be maintained until heart rate comes under better control. Case discussed with on-call hospitalist Dr. Gerry Gonzalez and he will see the patient in the emergency room with a view to admission to the intensive care unit where a bed has now become available 07/11/21 16:24 Regional dose of cardia zyme that we have been using 10 mg/h is now finished. I therefore put in for a second bag of Cardizem to run at 10 mg/h since heart rate is still as high as 150 at times primarily around 130. Will now be admitted to the intensive care unit. Prognosis is guarded due to her multiple comorbidities Departure - Departure Time of Disposition: 16:24 Reason for Transfer *Q: Other Condition: Serious Sepsis Event Note (ED) - Focused Exam Vital Signs: Vital Signs Temp Temp Pulse Pulse Resp BP Pulse Ox 07/11/21 14:32 149 H 07/11/21 14:30 158 H 16 102/56 L 100 07/11/21 14:00 130 H 18 117/57 L 100 07/11/21 13:30 36.3 C 136 H 19 106/71 97 07/11/21 13:17 36.2 C 128 H 17 111/97 H 07/11/21 13:13 36.2 C 138 H 14 100/57 L 07/11/21 13:08 36.1 C 124 H 17 89/46 L 07/11/21 12:24 36.3 C 139 H 17 124/43 L 07/11/21 12:15 121 H 19 95/63 100 07/11/21 11:54 142 H 16 111/63 96 07/11/21 11:15 132 H 16 87/53 L 95 07/11/21 10:45 130 H 18 101/51 L 94 L 07/11/21 10:33 35.7 C L 140 H 19 87/44 L 95 07/11/21 10:26 126 H 07/11/21 10:15 35.8 C L 126 H 17 101/38 L 07/11/21 10:10 36.0 C L 142 H 18 96/39 L 96 07/11/21 10:05 84/45 L 07/11/21 10:00 36.0 C L 142 H 21 H 101/49 L 94 L 07/11/21 09:00 141 H 17 95/59 L 97 07/11/21 08:30 139 H 23 H 108/60 97 07/11/21 08:00 132 H 20 102/63 99 07/11/21 07:30 128 H 21 H 90/62 99 07/11/21 07:00 122 H 21 H 127/41 L 97 07/11/21 05:16 36.1 C 116 H 19 100/43 L 97 - My Orders Last 24 Hours: My Active Orders 07/11/21 08:15 Diltiazem [Cardizem] 100 mg Sodium Chloride 0.9% [Normal Saline AdvBag] 100 ml IV TITRATE 07/11/21 15:08 Admission Status [Patient Status] [ADT] Routine 07/11/21 15:50 LACTIC ACID [CHEM] Stat - Assessment/Plan Last 24 Hours: My Active Orders 07/11/21 08:15 Diltiazem [Cardizem] 100 mg Sodium Chloride 0.9% [Normal Saline AdvBag] 100 ml IV TITRATE 07/11/21 15:08 Admission Status [Patient Status] [ADT] Routine 07/11/21 15:50 LACTIC ACID [CHEM] Stat
[2021-07-11] MEDS ORDERED: Cefepime 2 GM in Sodium Chloride 0.9% 50 ML IV ONE (07:14)
[2021-07-11] MEDS ORDERED: Diltiazem 50 MG/10 ML SDV IVPUSH ONE ×4 (07:20→09:53)
[2021-07-11] MEDS: Sodium Chloride 0.9% 1,000 ML IV SCH ×2 (07:29→18:05)
[2021-07-11] MEDS: Furosemide 40 MG/4 ML VIAL IVPUSH SCH (07:32)
--- NOTE | 2021-07-11 07:57 | CR ---
Chest: Frontal view of the chest was obtained. Comparison: Prior chest x-ray of 05/14/21. Findings within the left chest show improvement from prior exam. Some findings on the right side are improved but there is increasing density within the right lung base being seen. Possible small right-sided pleural effusion is also noted. Heart is mildly enlarged. Pulmonary vessels are also felt to be somewhat congested. Right-sided infusion catheter is seen. Bony structures show nothing acute. Impression: 1. Findings suspicious for mild CHF. 2. Possible small right-sided pleural effusion. Mild increased density within the right lung base raising the possibility of mild areas of atelectasis, aspiration or pneumonia. 3. Right-sided infusion catheter is seen. Diagnostic code #3
[2021-07-11] MEDS: Diltiazem 100 MG in Sodium Chloride 0.9% 100 ML IV SCH ×2 (09:18→23:31)
[2021-07-11] MEDS ORDERED: Digoxin 500 MCG/2 ML Amp IVPUSH ONE ×4 (10:15→18:30)
[2021-07-11] MEDS ORDERED: Furosemide 40 MG/4 ML VIAL IVPUSH ONE ×2 (14:00→18:30)
[2021-07-11] MEDS ORDERED: Prochlorperazine 5 MG Tab PO PRN (15:30)
[2021-07-11] MEDS ORDERED: Ondansetron 4 MG Tab.DIS PO PRN (15:30)
[2021-07-11] MEDS ORDERED: Acetaminophen/oxyCODONE 325-5 MG Tab PO PRN (15:30)
--- NOTE | 2021-07-11 15:31 | PCM.HP.2 ---
H&P History of Present Illness - General Date of Service: 07/11/21 Admit Problem/Dx: Admission Diagnosis/Problem Admission Diagnosis/Problem Atrial fibrillation with rapid ventricular response Source of Information: Patient, Family History Limitations: Reports: Altered Mental Status - History of Present Illness Initial Comments - Free Text/Narative: Patient is a 71-year-old lady who had presented to the emergency department early this morning with a complaint of palpitations and rapid heartbeat. The patient was found to be in atrial fibrillation with RVR. The patient had remained in the emergency department for an extended time due to ICU bed availability. The patient has a complex history of metastatic cancer that has spread from her bladder to her lung and lymph nodes. The patient also has had gross hematuria from her bladder cancer. The patient also had been on apixaban at home. The patient herself says that she was diagnosed with cancer approximately 6 weeks ago and has undergone 1 round of chemotherapy. The patient has felt very weak and fatigued and she has had pain in her abdomen that is not relieved with her MS Contin. She has had no specific aggravating or relieving factors for this. The patient also has been complaining of constipation as well. The patient also noticed that she was starting to have edema in her lower extremities last week. She has had some difficulty of breath associated with this as well. The patient also had COVID-19 pneumonia end of April 2021. The patient has had some confusion but she has been able to supply information. Onset of Symptoms: Reports: Gradual Duration of Symptoms: Reports: Day(s):, Getting Worse Location: Reports: Generalized Quality: Reports: Dull Severity: Moderate Improves with: Reports: Medication, Rest Worsens with: Reports: None Context: Reports: Other (Chemotherapy, cancer and COVID-01 May 2021) Associated Symptoms: Reports: Confusion, Loss of Appetite, Malaise, Shortness of Breath, Weakness - Related Data Allergies/Adverse Reactions: Allergies Allergy/AdvReac Type Severity Reaction Status Date / Time clopidogrel bisulfate Allergy Rash Verified 07/11/21 05:22 [From Plavix] tetracycline Allergy Rash Verified 07/11/21 05:22 amoxicillin AdvReac Nausea and Verified 07/11/21 15:36 Vomiting Home Medications: Home Meds Furosemide [Lasix] 20 mg PO DAILY 05/11/21 [History] Isosorbide Mononitrate [Imdur] 60 mg PO BID 05/11/21 [History] LORazepam [Ativan] 1 mg PO TID PRN 05/11/21 [History] Metoprolol Succinate 75 mg PO BID 05/11/21 [History] atorvaSTATin [Lipitor] 40 mg PO DAILY 05/11/21 [History] Apixaban [Eliquis] 5 mg PO BID 07/11/21 [History] Diltiazem [Cardizem CD] 120 mg PO DAILY 07/11/21 [History] Ezetimibe [Zetia] 10 mg PO DAILY 07/11/21 [History] Magnesium 250 mg PO DAILY 07/11/21 [History] Morphine [MS Contin] 15 mg PO QPM 07/11/21 [History] Morphine [MS Contin] 30 mg PO BID 07/11/21 [History] Nitroglycerin [Nitrostat] 0.4 mg SL ASDIRECTED 07/11/21 [History] OLANZapine [ZyPREXA] 10 mg PO BEDTIME 07/11/21 [History] Ondansetron [Zofran] 8 mg PO TID PRN 07/11/21 [History] Prochlorperazine Maleate [Compazine] 10 mg PO QID PRN 07/11/21 [History] dexAMETHasone [Decadron] 4 mg PO ASDIRECTED 07/11/21 [History] oxyCODONE HCl/Acetaminophen [Oxycodone-Acetaminophen 5-325] 1 tab PO Q6HR PRN 07/11/21 [History] Past Medical History HEENT History: Reports: Cataract, Impaired Vision Cardiovascular History: Reports: Afib, NH, Stents Respiratory History: Reports: None Gastrointestinal History: Reports: None Genitourinary History: Reports: Renal Calculus Musculoskeletal History: Reports: None Neurological History: Reports: None Psychiatric History: Reports: None Endocrine/Metabolic History: Reports: None Hematologic History: Reports: Anemia, Anticoagulation Therapy Oncologic (Cancer) History: Reports: Bladder, Lung, Metastatic, Renal - Infectious Disease History Infectious Disease History: Reports: Novel Coronavirus - Past Surgical History Cardiovascular Surgical History: Reports: Coronary Artery Bypass Social & Family History - Tobacco Use Tobacco Use Status *Q: Former Tobacco User Used Tobacco, but Quit: Yes Month/Year Tobacco Last Used: 40 years ago - Caffeine Use Caffeine Use: Reports: None - Recreational Drug Use Recreational Drug Use: No - Living Situation & Occupation Living situation: Reports: , with Spouse Occupation: Retired H&P Review of Systems - Review of Systems: Review Of Systems: See Below General: Reports: Malaise, Weakness, Fatigue, Weight Loss HEENT: Reports: Other (Chronic decreased hearing right ear) Pulmonary: Reports: Shortness of Breath, Cough Cardiovascular: Reports: Palpitations, Edema Gastrointestinal: Reports: Abdominal Pain, Constipation Genitourinary: Reports: Hematuria Musculoskeletal: Reports: No Symptoms Skin: Reports: Pallor Psychiatric: Reports: Anxiety Neurological: Reports: Confusion Hematologic/Lymphatic: Reports: Anemia Immunologic: Reports: No Symptoms Exam - Exam Exam: See Below - Vital Signs Vital Signs: Last Vital Signs Temp 36.3 C 07/11/21 13:30 Pulse 149 H 07/11/21 14:32 Resp 16 07/11/21 14:30 BP 102/56 L 07/11/21 14:30 Pulse Ox 100 07/11/21 14:30 Weight: 68.039 kg - Exam Quality Assessment: No: Supplemental Oxygen, DVT Prophylaxis (Due to gross hematuria) General: Alert, Oriented, Cooperative, Sedated, Lethargic HEENT: EOMI, PERRLA. No: Conjunctiva Clear (Pale), Mucosa Moist & [place] (Dry pale, thrush) Neck: Supple, Trachea Midline Lungs: Decreased Breath Sounds, Crackles Cardiovascular: Irregular Rhythm, Tachycardia GI/Abdominal Exam: Normal Bowel Sounds, Soft, Non-Tender, No Distention (Female) Exam: Deferred Rectal (Female) Exam: Deferred Back Exam: Normal Inspection, Full Range of Motion Extremities: Normal Range of Motion, Pedal Edema (+2 pitting edema) Skin: Warm, Dry, Intact Neurological: Cranial Nerves Intact Psychiatric: Alert, Normal Affect, Normal Mood - Patient Data Lab Results Last 24 hrs: Laboratory Results - last 24 hr 07/11/21 07/11/21 07/11/21 Range/Units 05:42 05:42 05:42 WBC 22.02 H (3.98-10.04) K/mm3 RBC 2.85 L (3.98-5.22) M/mm3 Hgb 8.0 L D (11.2-15.7) gm/dl Hct 25.8 L (34.1-44.9) % MCV 90.5 (79.4-94.8) fl MCH 28.1 (25.6-32.2) pg MCHC 31.0 L (32.2-35.5) g/dl RDW Std Deviation 59.0 H (36.4-46.3) fL Plt Count 358 D (182-369) K/mm3 MPV 9.1 L (9.4-12.3) fl Neut % (Auto) 94.6 H (34.0-71.1) % Lymph % (Auto) 0.6 L (19.3-51.7) % Craig % (Auto) 1.9 L (4.7-12.5) % Eos % (Auto) 1.5 (0.7-5.8) Baso % (Auto) 0.0 L (0.1-1.2) % Neut # (Auto) 20.82 H (1.56-6.13) K/mm3 Lymph # (Auto) 0.14 L (1.18-3.74) K/mm3 Craig # (Auto) 0.42 H (0.24-0.36) K/mm3 Eos # (Auto) 0.33 (0.04-0.36) K/mm3 Baso # (Auto) 0.00 L (0.01-0.08) K/mm3 Manual Slide Review Abnormal smear PT 11.8 (9.7-12.0) SECONDS INR 1.07 APTT 30.0 (21.7-31.4) SECONDS Puncture Site ABG pH (7.35-7.45) ABG pCO2 (35.0-45.0) mmHg ABG pO2 (80.0-100.0) mmHg ABG HCO3 (22.0-26.0) meq/L ABG O2 Saturation (96.0-97.0) % ABG Base Excess (-2-2.0) Salvador Test O2 Delivery Device FiO2 (21.00-100.00) % PEEP cmH20 Pressure Support cmH2O Sodium 126 L D (136-145) mEq/L Potassium 5.8 H D (3.5-5.1) mEq/L Chloride 95 L (98-107) mEq/L Carbon Dioxide 21 (21-32) mEq/L Anion Gap 15.8 H (5-15) BUN 52 H D (7-18) mg/dL Creatinine 1.3 H (0.55-1.02) mg/dL Est Cr Clr Drug Dosing 34.27 mL/min Estimated GFR (MDRD) 40 (>60) mL/min BUN/Creatinine Ratio 40.0 H (14-18) Glucose 116 H (70-99) mg/dL Lactic Acid (0.4-2.0) mmol/L Calcium 9.4 (8.5-10.1) mg/dL Total Bilirubin 1.0 (0.2-1.0) mg/dL AST 18 (15-37) U/L ALT 53 (14-59) U/L Alkaline Phosphatase 61 (46-116) U/L Troponin I < 0.017 (0.00-0.056) ng/mL NT-Pro-B Natriuret Pep (0-125) pg/mL Total Protein 5.6 L (6.4-8.2) g/dl Albumin 2.3 L (3.4-5.0) g/dl Globulin 3.3 gm/dL Albumin/Globulin Ratio 0.7 L (1-2) SARS-CoV-2 RNA (BHANU) (NEGATIVE) Blood Type Gel Antibody Screen Crossmatch 07/11/21 07/11/21 07/11/21 Range/Units 05:42 05:42 05:42 WBC (3.98-10.04) K/mm3 RBC (3.98-5.22) M/mm3 Hgb (11.2-15.7) gm/dl Hct (34.1-44.9) % MCV (79.4-94.8) fl MCH (25.6-32.2) pg MCHC (32.2-35.5) g/dl RDW Std Deviation (36.4-46.3) fL Plt Count (182-369) K/mm3 MPV (9.4-12.3) fl Neut % (Auto) (34.0-71.1) % Lymph % (Auto) (19.3-51.7) % Craig % (Auto) (4.7-12.5) % Eos % (Auto) (0.7-5.8) Baso % (Auto) (0.1-1.2) % Neut # (Auto) (1.56-6.13) K/mm3 Lymph # (Auto) (1.18-3.74) K/mm3 Craig # (Auto) (0.24-0.36) K/mm3 Eos # (Auto) (0.04-0.36) K/mm3 Baso # (Auto) (0.01-0.08) K/mm3 Manual Slide Review PT (9.7-12.0) SECONDS INR APTT (21.7-31.4) SECONDS Puncture Site ABG pH (7.35-7.45) ABG pCO2 (35.0-45.0) mmHg ABG pO2 (80.0-100.0) mmHg ABG HCO3 (22.0-26.0) meq/L ABG O2 Saturation (96.0-97.0) % ABG Base Excess (-2-2.0) Salvador Test O2 Delivery Device FiO2 (21.00-100.00) % PEEP cmH20 Pressure Support cmH2O Sodium (136-145) mEq/L Potassium (3.5-5.1) mEq/L Chloride (98-107) mEq/L Carbon Dioxide (21-32) mEq/L Anion Gap (5-15) BUN (7-18) mg/dL Creatinine (0.55-1.02) mg/dL Est Cr Clr Drug Dosing mL/min Estimated GFR (MDRD) (>60) mL/min BUN/Creatinine Ratio (14-18) Glucose (70-99) mg/dL Lactic Acid 2.1 H* (0.4-2.0) mmol/L Calcium (8.5-10.1) mg/dL Total Bilirubin (0.2-1.0) mg/dL AST (15-37) U/L ALT (14-59) U/L Alkaline Phosphatase (46-116) U/L Troponin I (0.00-0.056) ng/mL NT-Pro-B Natriuret Pep 29674 H (0-125) pg/mL Total Protein (6.4-8.2) g/dl Albumin (3.4-5.0) g/dl Globulin gm/dL Albumin/Globulin Ratio (1-2) SARS-CoV-2 RNA (BHANU) (NEGATIVE) Blood Type A POSITIVE Gel Antibody Screen Negative Crossmatch See Detail 07/11/21 07/11/21 07/11/21 Range/Units 06:35 08:05 09:41 WBC (3.98-10.04) K/mm3 RBC (3.98-5.22) M/mm3 Hgb (11.2-15.7) gm/dl Hct (34.1-44.9) % MCV (79.4-94.8) fl MCH (25.6-32.2) pg MCHC (32.2-35.5) g/dl RDW Std Deviation (36.4-46.3) fL Plt Count (182-369) K/mm3 MPV (9.4-12.3) fl Neut % (Auto) (34.0-71.1) % Lymph % (Auto) (19.3-51.7) % Craig % (Auto) (4.7-12.5) % Eos % (Auto) (0.7-5.8) Baso % (Auto) (0.1-1.2) % Neut # (Auto) (1.56-6.13) K/mm3 Lymph # (Auto) (1.18-3.74) K/mm3 Craig # (Auto) (0.24-0.36) K/mm3 Eos # (Auto) (0.04-0.36) K/mm3 Baso # (Auto) (0.01-0.08) K/mm3 Manual Slide Review PT (9.7-12.0) SECONDS INR APTT (21.7-31.4) SECONDS Puncture Site Lt radial ABG pH 7.46 H (7.35-7.45) ABG pCO2 27.8 L (35.0-45.0) mmHg ABG pO2 75.0 L (80.0-100.0) mmHg ABG HCO3 19.6 L (22.0-26.0) meq/L ABG O2 Saturation 95.2 L (96.0-97.0) % ABG Base Excess -3.2 L (-2-2.0) Salvador Test Positive O2 Delivery Device Bipap FiO2 21.00 (21.00-100.00) % PEEP 6.0 cmH20 Pressure Support 12.0 cmH2O Sodium (136-145) mEq/L Potassium (3.5-5.1) mEq/L Chloride (98-107) mEq/L Carbon Dioxide (21-32) mEq/L Anion Gap (5-15) BUN (7-18) mg/dL Creatinine (0.55-1.02) mg/dL Est Cr Clr Drug Dosing mL/min Estimated GFR (MDRD) (>60) mL/min BUN/Creatinine Ratio (14-18) Glucose (70-99) mg/dL Lactic Acid 2.1 H* (0.4-2.0) mmol/L Calcium (8.5-10.1) mg/dL Total Bilirubin (0.2-1.0) mg/dL AST (15-37) U/L ALT (14-59) U/L Alkaline Phosphatase (46-116) U/L Troponin I (0.00-0.056) ng/mL NT-Pro-B Natriuret Pep (0-125) pg/mL Total Protein (6.4-8.2) g/dl Albumin (3.4-5.0) g/dl Globulin gm/dL Albumin/Globulin Ratio (1-2) SARS-CoV-2 RNA (BHANU) Negative (NEGATIVE) Blood Type Gel Antibody Screen Crossmatch 07/11/21 07/11/21 Range/Units 12:49 12:49 WBC (3.98-10.04) K/mm3 RBC (3.98-5.22) M/mm3 Hgb (11.2-15.7) gm/dl Hct (34.1-44.9) % MCV (79.4-94.8) fl MCH (25.6-32.2) pg MCHC (32.2-35.5) g/dl RDW Std Deviation (36.4-46.3) fL Plt Count (182-369) K/mm3 MPV (9.4-12.3) fl Neut % (Auto) (34.0-71.1) % Lymph % (Auto) (19.3-51.7) % Craig % (Auto) (4.7-12.5) % Eos % (Auto) (0.7-5.8) Baso % (Auto) (0.1-1.2) % Neut # (Auto) (1.56-6.13) K/mm3 Lymph # (Auto) (1.18-3.74) K/mm3 Craig # (Auto) (0.24-0.36) K/mm3 Eos # (Auto) (0.04-0.36) K/mm3 Baso # (Auto) (0.01-0.08) K/mm3 Manual Slide Review PT (9.7-12.0) SECONDS INR APTT (21.7-31.4) SECONDS Puncture Site ABG pH (7.35-7.45) ABG pCO2 (35.0-45.0) mmHg ABG pO2 (80.0-100.0) mmHg ABG HCO3 (22.0-26.0) meq/L ABG O2 Saturation (96.0-97.0) % ABG Base Excess (-2-2.0) Salvador Test O2 Delivery Device FiO2 (21.00-100.00) % PEEP cmH20 Pressure Support cmH2O Sodium 129 L (136-145) mEq/L Potassium 4.9 (3.5-5.1) mEq/L Chloride 97 L (98-107) mEq/L Carbon Dioxide 21 (21-32) mEq/L Anion Gap 15.9 H (5-15) BUN 50 H (7-18) mg/dL Creatinine 1.3 H (0.55-1.02) mg/dL Est Cr Clr Drug Dosing 34.27 mL/min Estimated GFR (MDRD) 40 (>60) mL/min BUN/Creatinine Ratio 38.5 H (14-18) Glucose 109 H (70-99) mg/dL Lactic Acid 2.7 H* (0.4-2.0) mmol/L Calcium 8.9 (8.5-10.1) mg/dL Total Bilirubin 1.5 H (0.2-1.0) mg/dL AST 21 (15-37) U/L ALT 47 (14-59) U/L Alkaline Phosphatase 58 (46-116) U/L Troponin I < 0.017 (0.00-0.056) ng/mL NT-Pro-B Natriuret Pep (0-125) pg/mL Total Protein 5.1 L (6.4-8.2) g/dl Albumin 2.2 L (3.4-5.0) g/dl Globulin 2.9 gm/dL Albumin/Globulin Ratio 0.8 L (1-2) SARS-CoV-2 RNA (BHANU) (NEGATIVE) Blood Type Gel Antibody Screen Crossmatch Result Diagrams: 07/11/21 05:42 07/11/21 12:49 Sepsis Event Note - Focused Exam Vital Signs: Vital Signs Temp Temp Pulse Pulse Resp BP Pulse Ox 07/11/21 14:32 149 H 07/11/21 14:30 158 H 16 102/56 L 100 07/11/21 14:00 130 H 18 117/57 L 100 07/11/21 13:30 36.3 C 136 H 19 106/71 97 07/11/21 13:17 36.2 C 128 H 17 111/97 H 07/11/21 13:13 36.2 C 138 H 14 100/57 L 07/11/21 13:08 36.1 C 124 H 17 89/46 L 07/11/21 12:24 36.3 C 139 H 17 124/43 L 07/11/21 12:15 121 H 19 95/63 100 07/11/21 11:54 142 H 16 111/63 96 07/11/21 11:15 132 H 16 87/53 L 95 07/11/21 10:45 130 H 18 101/51 L 94 L 07/11/21 10:33 35.7 C L 140 H 19 87/44 L 95 07/11/21 10:26 126 H 07/11/21 10:15 35.8 C L 126 H 17 101/38 L 07/11/21 10:10 36.0 C L 142 H 18 96/39 L 96 07/11/21 10:05 84/45 L 07/11/21 10:00 36.0 C L 142 H 21 H 101/49 L 94 L 07/11/21 09:00 141 H 17 95/59 L 97 07/11/21 08:30 139 H 23 H 108/60 97 07/11/21 08:00 132 H 20 102/63 99 07/11/21 07:30 128 H 21 H 90/62 99 07/11/21 07:00 122 H 21 H 127/41 L 97 07/11/21 05:16 36.1 C 116 H 19 100/43 L 97 - Problem List (1) Persistent atrial fibrillation with RVR SNOMED Code(s): 401470912, 567434740092953 ICD Code: I48.19 - OTHER PERSISTENT ATRIAL FIBRILLATION Status: Acute Pr iority: High Current Visit: Yes (2) Congestive heart failure SNOMED Code(s): 06546903 ICD Code: I50.9 - HEART FAILURE, UNSPECIFIED Status: Acute Current Visit: Yes Problem Details: Atrial fibrillation with RVR Qualifiers: Heart failure type: unspecified Heart failure chronicity: acute Qualified Code(s): I50.9 - Heart failure, unspecified (3) Anemia SNOMED Code(s): 135898298 ICD Code: D64.9 - ANEMIA, UNSPECIFIED Status: Acute Current Visit: Yes Qualifiers: Anemia type: unspecified type Qualified Code(s): D64.9 - Anemia, unspecified (4) Gross hematuria SNOMED Code(s): 277426563 ICD Code: R31.0 - GROSS HEMATURIA Status: Acute Priority: High Current Visit: Yes (5) H/O primary malignant neoplasm of urinary bladder SNOMED Code(s): 703100366 ICD Code: Z85.51 - PERSONAL HISTORY OF MALIGNANT NEOPLASM OF BLADDER Status: Chronic Priority: High Current Visit: Yes (6) Leukocytosis SNOMED Code(s): 191873527, 168611577 ICD Code: D72.829 - ELEVATED WHITE BLOOD CELL COUNT, UNSPECIFIED Status: Acute Priority: High Current Visit: Yes Qualifiers: Leukocytosis type: bandemia Qualified Code(s): D72.825 - Bandemia (7) Metastatic cancer to lung SNOMED Code(s): 19647153 ICD Code: C78.00 - SECONDARY MALIGNANT NEOPLASM OF UNSPECIFIED LUNG Status: Chronic Priority: High Current Visit: Yes Qualifiers: Laterality: right Qualified Code(s): C78.01 - Secondary malignant neoplasm of right lung Problem List Initiated/Reviewed/Updated: Yes Orders Last 24hrs: Active Orders 24 hr Category Date Time Status Admission Status [Patient Status] [ADT] Routine ADT 07/11/21 15:08 Active ABG [RT Arterial Blood Gases, ABG] [RC] Click to Edit Care 07/11/21 06:32 Active RT BiPAP/CPAP [RC] ASDIRECTED Care 07/11/21 06:13 Active BLOOD CULTURE [MREF] Stat Lab 07/11/21 06:58 Received BLOOD CULTURE [MREF] Stat Lab 07/11/21 07:00 Received LACTIC ACID [CHEM] Stat Lab 07/11/21 15:49 Ordered Diltiazem [Cardizem] 100 mg Med 07/11/21 08:15 Active Sodium Chloride 0.9% [Normal Saline AdvBag] 100 ml IV TITRATE Furosemide [Lasix] Med 07/11/21 09:00 Active 40 mg IVPUSH DAILY Sodium Chloride 0.9% [Normal Saline] 1,000 ml Med 07/11/21 07:30 Active IV ASDIRECTED Blood Culture x2 Reflex Set [OM.PC] Stat Oth 07/11/21 06:31 Ordered Transfuse PRBC [Transfuse Red Blood Cells] [COMM] Stat Oth 07/11/21 07:27 Ordered Medication Orders Furosemide (Furosemide 40 Mg/4 Ml Vial) 40 mg IVPUSH DAILY RIKY Last Admin: 07/11/21 07:32 Dose: 40 mg Documented by: NATALI Sodium Chloride (Normal Saline) 1,000 mls @ 125 mls/hr IV ASDIRECTED RIKY Last Admin: 07/11/21 07:29 Dose: 125 mls/hr Documented by: NATALI Diltiazem HCl 100 mg/ Sodium (Chloride) 100 mls @ 10 mls/hr IV TITRATE RIKY; Protocol Last Admin: 07/11/21 09:18 Dose: 10 mg/hr, 10 mls/hr Documented by: NATALI Assessment/Plan Comment:: The patient is a 71-year-old lady who has been admitted as an inpatient to the intensive care unit. She is currently on a Cardizem drip and has received 2 units of blood. I have ordered an H&H to be completed at 5 PM to recheck her hemoglobin and determine if she needs further transfusions. The patient will be kept on telemetry due to the RVR and she will be started on digitalis starting tomorrow. The patient has had willie blood hematuria and therefore will not receive pharmacological DVT prophylaxis. I have also placed the patient on ceftriaxone until pneumonia is excluded. The patient does have heart failure likely related to her atrial fibrillation and she will need to have input and output recorded. The patient has needed gentle fluid resuscitation with the use of normal saline at 75 mL/h. This is balanced by use of Lasix to help reduce her heart load. She does have marked elevation of her BNP around 22,000. Repeat laboratory studies have been ordered for the morning. It is unsure if this is new for her or not. She previously had been on Eliquis and diltiazem and this may be a recurrence of atrial fibrillation. I had a discussion with the patient and the patient's , Gerry, and discussed resuscitation status with them. For now the patient is in a DO NOT RESUSCITATE DO NOT INTUBATE category but they may require this to be changed to full code. I also explained to the patient and the patient's the stroke risk by pharmacological DVT prophylaxis being contraindicated. Regardless, the patient's overall prognosis is poor at this time. - Mortality Measure Prognosis:: Poor
[2021-07-11] MEDS ORDERED: Diltiazem 100 MG in Sodium Chloride 0.9% 100 ML IV SCH (16:30)
[2021-07-11] MEDS: LORazepam 1 MG Tab PO PRN (18:05)
[2021-07-11] MEDS ORDERED: OLANZAPINE 10 MG PO SCH (21:00)
[2021-07-11] MEDS: Morphine 15 MG Tab.ER PO SCH (21:07)
[2021-07-11] MEDS: Isosorbide Mononitrate 60 MG Tab.ER PO SCH (21:08)
[2021-07-11] MEDS: Nystatin Susp 100,000 Unit/ML 5 ML UD Cup PO SCH (21:08)
[2021-07-11] MEDS: Metoprolol Succinate 25 MG Tab.ER PO SCH (21:08)
[2021-07-12] MEDS: Morphine 15 MG Tab.ER PO SCH ×3 (04:10→20:03)
--- NOTE | 2021-07-12 06:51 | PCM.PN ---
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 Subjective Update: The patient is a 71-year-old lady who was admitted to the intensive care unit primarily due to atrial fibrillation with RVR. The patient has been loaded with digitalis and her heart rate has improved from 160s down to around 105. The patient does have widely metastatic cancer with bladder as her primary and she has been having willie blood in her urine. She had received 2 units of packed red blood cells in the emergency department and in 12 hours the patient's hemoglobin has dropped by 2 g. The patient is somewhat confused today. She is feeling weak. The patient has had no appetite. Functional Status: Reports: Pain Controlled. Denies: Tolerating Diet, New Symptoms - Review of Systems General: Reports: Weakness, Fatigue. Denies: Appetite HEENT: Reports: No Symptoms Pulmonary: Reports: No Symptoms Cardiovascular: Reports: Palpitations Gastrointestinal: Reports: Abdominal Pain Genitourinary: Reports: No Symptoms Musculoskeletal: Reports: No Symptoms Skin: Reports: No Symptoms Neurological: Reports: Confusion Psychiatric: Reports: Confusion - Patient Data Vitals - Most Recent: Last Vital Signs Temp 36.2 C 07/12/21 04:00 Pulse 113 H 07/11/21 21:08 Resp 14 07/12/21 06:31 BP 107/56 L 07/12/21 06:31 Pulse Ox 94 L 07/12/21 06:31 Weight - Most Recent: 70.307 kg I&O - Last 24 Hours: Intake & Output 07/11/21 07/11/21 07/12/21 14:59 22:59 06:59 Intake Total 583 29 1630 Output Total 3000 700 Balance 380 -2980 371 Lab Results Last 24 Hours: Laboratory Results - last 24 hr 07/11/21 07/11/21 07/11/21 Range/Units 05:42 05:42 05:42 WBC (3.98-10.04) K/mm3 RBC (3.98-5.22) M/mm3 Hgb (11.2-15.7) gm/dl Hct (34.1-44.9) % MCV (79.4-94.8) fl MCH (25.6-32.2) pg MCHC (32.2-35.5) g/dl RDW Std Deviation (36.4-46.3) fL Plt Count (182-369) K/mm3 MPV (9.4-12.3) fl Neut % (Auto) (34.0-71.1) % Lymph % (Auto) (19.3-51.7) % [place] % (Auto) (4.7-12.5) % Eos % (Auto) (0.7-5.8) Baso % (Auto) (0.1-1.2) % Neut # (Auto) (1.56-6.13) K/mm3 Lymph # (Auto) (1.18-3.74) K/mm3 [place] # (Auto) (0.24-0.36) K/mm3 Eos # (Auto) (0.04-0.36) K/mm3 Baso # (Auto) (0.01-0.08) K/mm3 Manual Slide Review Abnormal smear Sodium 126 L D (136-145) mEq/L Potassium 5.8 H D (3.5-5.1) mEq/L Chloride 95 L (98-107) mEq/L Carbon Dioxide 21 (21-32) mEq/L Anion Gap 15.8 H (5-15) BUN 52 H D (7-18) mg/dL Creatinine 1.3 H (0.55-1.02) mg/dL Est Cr Clr Drug Dosing 34.27 mL/min Estimated GFR (MDRD) 40 (>60) mL/min BUN/Creatinine Ratio 40.0 H (14-18) Glucose 116 H (70-99) mg/dL Lactic Acid (0.4-2.0) mmol/L Calcium 9.4 (8.5-10.1) mg/dL Magnesium (1.8-2.4) mg/dL Total Bilirubin 1.0 (0.2-1.0) mg/dL AST 18 (15-37) U/L ALT 53 (14-59) U/L Alkaline Phosphatase 61 (46-116) U/L Troponin I < 0.017 (0.00-0.056) ng/mL NT-Pro-B Natriuret Pep 53676 H (0-125) pg/mL Total Protein 5.6 L (6.4-8.2) g/dl Albumin 2.3 L (3.4-5.0) g/dl Globulin 3.3 gm/dL Albumin/Globulin Ratio 0.7 L (1-2) Urine Color (Yellow) Urine Appearance (Clear) Urine pH (5.0-8.0) Ur Specific [place] (1.005-1.030) Urine Protein (Negative) Urine Glucose (UA) (Negative) Urine Ketones (Negative) Urine Occult Blood (Negative) Urine Nitrite (Negative) Urine Bilirubin (Negative) Urine Urobilinogen (0.2-1.0) Ur Leukocyte Esterase (Negative) Urine RBC (0-5) /hpf Urine WBC (0-5) /hpf Ur Squamous Epith Cells (0-5) /hpf Urine Bacteria (FEW) /hpf Urine Mucus (FEW) /hpf SARS-CoV-2 RNA (BHANU) (NEGATIVE) Blood Type Gel Antibody Screen Crossmatch 07/11/21 07/11/21 07/11/21 Range/Units 05:42 05:42 08:05 WBC (3.98-10.04) K/mm3 RBC (3.98-5.22) M/mm3 Hgb (11.2-15.7) gm/dl Hct (34.1-44.9) % MCV (79.4-94.8) fl MCH (25.6-32.2) pg MCHC (32.2-35.5) g/dl RDW Std Deviation (36.4-46.3) fL Plt Count (182-369) K/mm3 MPV (9.4-12.3) fl Neut % (Auto) (34.0-71.1) % Lymph % (Auto) (19.3-51.7) % [place] % (Auto) (4.7-12.5) % Eos % (Auto) (0.7-5.8) Baso % (Auto) (0.1-1.2) % Neut # (Auto) (1.56-6.13) K/mm3 Lymph # (Auto) (1.18-3.74) K/mm3 [place] # (Auto) (0.24-0.36) K/mm3 Eos # (Auto) (0.04-0.36) K/mm3 Baso # (Auto) (0.01-0.08) K/mm3 Manual Slide Review Sodium (136-145) mEq/L Potassium (3.5-5.1) mEq/L Chloride (98-107) mEq/L Carbon Dioxide (21-32) mEq/L Anion Gap (5-15) BUN (7-18) mg/dL Creatinine (0.55-1.02) mg/dL Est Cr Clr Drug Dosing mL/min Estimated GFR (MDRD) (>60) mL/min BUN/Creatinine Ratio (14-18) Glucose (70-99) mg/dL Lactic Acid 2.1 H* (0.4-2.0) mmol/L Calcium (8.5-10.1) mg/dL Magnesium (1.8-2.4) mg/dL Total Bilirubin (0.2-1.0) mg/dL AST (15-37) U/L ALT (14-59) U/L Alkaline Phosphatase (46-116) U/L Troponin I (0.00-0.056) ng/mL NT-Pro-B Natriuret Pep (0-125) pg/mL Total Protein (6.4-8.2) g/dl Albumin (3.4-5.0) g/dl Globulin gm/dL Albumin/Globulin Ratio (1-2) Urine Color (Yellow) Urine Appearance (Clear) Urine pH (5.0-8.0) Ur Specific [place] (1.005-1.030) Urine Protein (Negative) Urine Glucose (UA) (Negative) Urine Ketones (Negative) Urine Occult Blood (Negative) Urine Nitrite (Negative) Urine Bilirubin (Negative) Urine Urobilinogen (0.2-1.0) Ur Leukocyte Esterase (Negative) Urine RBC (0-5) /hpf Urine WBC (0-5) /hpf Ur Squamous Epith Cells (0-5) /hpf Urine Bacteria (FEW) /hpf Urine Mucus (FEW) /hpf SARS-CoV-2 RNA (BHANU) Negative (NEGATIVE) Blood Type A POSITIVE Gel Antibody Screen Negative Crossmatch See Detail 07/11/21 07/11/21 07/11/21 Range/Units 09:41 12:49 12:49 WBC (3.98-10.04) K/mm3 RBC (3.98-5.22) M/mm3 Hgb (11.2-15.7) gm/dl Hct (34.1-44.9) % MCV (79.4-94.8) fl MCH (25.6-32.2) pg MCHC (32.2-35.5) g/dl RDW Std Deviation (36.4-46.3) fL Plt Count (182-369) K/mm3 MPV (9.4-12.3) fl Neut % (Auto) (34.0-71.1) % Lymph % (Auto) (19.3-51.7) % [place] % (Auto) (4.7-12.5) % Eos % (Auto) (0.7-5.8) Baso % (Auto) (0.1-1.2) % Neut # (Auto) (1.56-6.13) K/mm3 Lymph # (Auto) (1.18-3.74) K/mm3 [place] # (Auto) (0.24-0.36) K/mm3 Eos # (Auto) (0.04-0.36) K/mm3 Baso # (Auto) (0.01-0.08) K/mm3 Manual Slide Review Sodium 129 L (136-145) mEq/L Potassium 4.9 (3.5-5.1) mEq/L Chloride 97 L (98-107) mEq/L Carbon Dioxide 21 (21-32) mEq/L Anion Gap 15.9 H (5-15) BUN 50 H (7-18) mg/dL Creatinine 1.3 H (0.55-1.02) mg/dL Est Cr Clr Drug Dosing 34.27 mL/min Estimated GFR (MDRD) 40 (>60) mL/min BUN/Creatinine Ratio 38.5 H (14-18) Glucose 109 H (70-99) mg/dL Lactic Acid 2.1 H* 2.7 H* (0.4-2.0) mmol/L Calcium 8.9 (8.5-10.1) mg/dL Magnesium (1.8-2.4) mg/dL Total Bilirubin 1.5 H (0.2-1.0) mg/dL AST 21 (15-37) U/L ALT 47 (14-59) U/L Alkaline Phosphatase 58 (46-116) U/L Troponin I < 0.017 (0.00-0.056) ng/mL NT-Pro-B Natriuret Pep (0-125) pg/mL Total Protein 5.1 L (6.4-8.2) g/dl Albumin 2.2 L (3.4-5.0) g/dl Globulin 2.9 gm/dL Albumin/Globulin Ratio 0.8 L (1-2) Urine Color (Yellow) Urine Appearance (Clear) Urine pH (5.0-8.0) Ur Specific [place] (1.005-1.030) Urine Protein (Negative) Urine Glucose (UA) (Negative) Urine Ketones (Negative) Urine Occult Blood (Negative) Urine Nitrite (Negative) Urine Bilirubin (Negative) Urine Urobilinogen (0.2-1.0) Ur Leukocyte Esterase (Negative) Urine RBC (0-5) /hpf Urine WBC (0-5) /hpf Ur Squamous Epith Cells (0-5) /hpf Urine Bacteria (FEW) /hpf Urine Mucus (FEW) /hpf SARS-CoV-2 RNA (BHANU) (NEGATIVE) Blood Type Gel Antibody Screen Crossmatch 07/11/21 07/11/21 07/11/21 Range/Units 15:50 17:50 19:13 WBC (3.98-10.04) K/mm3 RBC (3.98-5.22) M/mm3 Hgb 10.0 L D (11.2-15.7) gm/dl Hct (34.1-44.9) % MCV (79.4-94.8) fl MCH (25.6-32.2) pg MCHC (32.2-35.5) g/dl RDW Std Deviation (36.4-46.3) fL Plt Count (182-369) K/mm3 MPV (9.4-12.3) fl Neut % (Auto) (34.0-71.1) % Lymph % (Auto) (19.3-51.7) % [place] % (Auto) (4.7-12.5) % Eos % (Auto) (0.7-5.8) Baso % (Auto) (0.1-1.2) % Neut # (Auto) (1.56-6.13) K/mm3 Lymph # (Auto) (1.18-3.74) K/mm3 [place] # (Auto) (0.24-0.36) K/mm3 Eos # (Auto) (0.04-0.36) K/mm3 Baso # (Auto) (0.01-0.08) K/mm3 Manual Slide Review Sodium (136-145) mEq/L Potassium (3.5-5.1) mEq/L Chloride (98-107) mEq/L Carbon Dioxide (21-32) mEq/L Anion Gap (5-15) BUN (7-18) mg/dL Creatinine (0.55-1.02) mg/dL Est Cr Clr Drug Dosing mL/min Estimated GFR (MDRD) (>60) mL/min BUN/Creatinine Ratio (14-18) Glucose (70-99) mg/dL Lactic Acid 2.5 H* (0.4-2.0) mmol/L Calcium (8.5-10.1) mg/dL Magnesium (1.8-2.4) mg/dL Total Bilirubin (0.2-1.0) mg/dL AST (15-37) U/L ALT (14-59) U/L Alkaline Phosphatase (46-116) U/L Troponin I (0.00-0.056) ng/mL NT-Pro-B Natriuret Pep (0-125) pg/mL Total Protein (6.4-8.2) g/dl Albumin (3.4-5.0) g/dl Globulin gm/dL Albumin/Globulin Ratio (1-2) Urine Color Yellow (Yellow) Urine Appearance Slt cloudy H (Clear) Urine pH 6.0 (5.0-8.0) Ur Specific [place] 1.020 (1.005-1.030) Urine Protein 1+ H (Negative) Urine Glucose (UA) Negative (Negative) Urine Ketones Negative (Negative) Urine Occult Blood 3+ H (Negative) Urine Nitrite Negative (Negative) Urine Bilirubin Negative (Negative) Urine Urobilinogen 0.2 (0.2-1.0) Ur Leukocyte Esterase Negative (Negative) Urine RBC >100 H (0-5) /hpf Urine WBC 0-5 (0-5) /hpf Ur Squamous Epith Cells 0-5 (0-5) /hpf Urine Bacteria Few (FEW) /hpf Urine Mucus Not seen (FEW) /hpf SARS-CoV-2 RNA (BHANU) (NEGATIVE) Blood Type Gel Antibody Screen Crossmatch 10/29/21 10/29/21 10/30/21 Range/Units 19:13 22:03 01:07 WBC (3.98-10.04) K/mm3 RBC (3.98-5.22) M/mm3 Hgb (11.2-15.7) gm/dl Hct (34.1-44.9) % MCV (79.4-94.8) fl MCH (25.6-32.2) pg MCHC (32.2-35.5) g/dl RDW Std Deviation (36.4-46.3) fL Plt Count (182-369) K/mm3 MPV (9.4-12.3) fl Neut % (Auto) (34.0-71.1) % Lymph % (Auto) (19.3-51.7) % [place] % (Auto) (4.7-12.5) % Eos % (Auto) (0.7-5.8) Baso % (Auto) (0.1-1.2) % Neut # (Auto) (1.56-6.13) K/mm3 Lymph # (Auto) (1.18-3.74) K/mm3 [place] # (Auto) (0.24-0.36) K/mm3 Eos # (Auto) (0.04-0.36) K/mm3 Baso # (Auto) (0.01-0.08) K/mm3 Manual Slide Review Sodium (136-145) mEq/L Potassium (3.5-5.1) mEq/L Chloride (98-107) mEq/L Carbon Dioxide (21-32) mEq/L Anion Gap (5-15) BUN (7-18) mg/dL Creatinine (0.55-1.02) mg/dL Est Cr Clr Drug Dosing mL/min Estimated GFR (MDRD) (>60) mL/min BUN/Creatinine Ratio (14-18) Glucose (70-99) mg/dL Lactic Acid 3.0 H* 2.6 H* 1.7 (0.4-2.0) mmol/L Calcium (8.5-10.1) mg/dL Magnesium (1.8-2.4) mg/dL Total Bilirubin (0.2-1.0) mg/dL AST (15-37) U/L ALT (14-59) U/L Alkaline Phosphatase (46-116) U/L Troponin I (0.00-0.056) ng/mL NT-Pro-B Natriuret Pep (0-125) pg/mL Total Protein (6.4-8.2) g/dl Albumin (3.4-5.0) g/dl Globulin gm/dL Albumin/Globulin Ratio (1-2) Urine Color (Yellow) Urine Appearance (Clear) Urine pH (5.0-8.0) Ur Specific [place] (1.005-1.030) Urine Protein (Negative) Urine Glucose (UA) (Negative) Urine Ketones (Negative) Urine Occult Blood (Negative) Urine Nitrite (Negative) Urine Bilirubin (Negative) Urine Urobilinogen (0.2-1.0) Ur Leukocyte Esterase (Negative) Urine RBC (0-5) /hpf Urine WBC (0-5) /hpf Ur Squamous Epith Cells (0-5) /hpf Urine Bacteria (FEW) /hpf Urine Mucus (FEW) /hpf SARS-CoV-2 RNA (BHANU) (NEGATIVE) Blood Type Gel Antibody Screen Crossmatch 07/12/21 07/12/21 Range/Units 04:50 04:50 WBC 8.24 (3.98-10.04) K/mm3 RBC 3.08 L (3.98-5.22) M/mm3 Hgb 8.7 L (11.2-15.7) gm/dl Hct 27.5 L (34.1-44.9) % MCV 89.3 (79.4-94.8) fl MCH 28.2 (25.6-32.2) pg MCHC 31.6 L (32.2-35.5) g/dl RDW Std Deviation 56.6 H (36.4-46.3) fL Plt Count 257 D (182-369) K/mm3 MPV 9.6 (9.4-12.3) fl Neut % (Auto) 87.4 H (34.0-71.1) % Lymph % (Auto) 1.9 L (19.3-51.7) % [place] % (Auto) 1.2 L (4.7-12.5) % Eos % (Auto) 5.0 (0.7-5.8) Baso % (Auto) 0.0 L (0.1-1.2) % Neut # (Auto) 7.20 H (1.56-6.13) K/mm3 Lymph # (Auto) 0.16 L (1.18-3.74) K/mm3 [place] # (Auto) 0.10 L (0.24-0.36) K/mm3 Eos # (Auto) 0.41 H (0.04-0.36) K/mm3 Baso # (Auto) 0.00 L (0.01-0.08) K/mm3 Manual Slide Review Abnormal smear Sodium 134 L (136-145) mEq/L Potassium 3.2 L D (3.5-5.1) mEq/L Chloride 101 (98-107) mEq/L Carbon Dioxide 23 (21-32) mEq/L Anion Gap 13.2 (5-15) BUN 47 H (7-18) mg/dL Creatinine 1.2 H (0.55-1.02) mg/dL Est Cr Clr Drug Dosing 37.13 mL/min Estimated GFR (MDRD) 44 (>60) mL/min BUN/Creatinine Ratio 39.2 H (14-18) Glucose 87 (70-99) mg/dL Lactic Acid (0.4-2.0) mmol/L Calcium 8.2 L (8.5-10.1) mg/dL Magnesium 2.0 (1.8-2.4) mg/dL Total Bilirubin 1.0 (0.2-1.0) mg/dL AST 16 (15-37) U/L ALT 38 (14-59) U/L Alkaline Phosphatase 53 (46-116) U/L Troponin I (0.00-0.056) ng/mL NT-Pro-B Natriuret Pep (0-125) pg/mL Total Protein 4.6 L (6.4-8.2) g/dl Albumin 2.0 L (3.4-5.0) g/dl Globulin 2.6 gm/dL Albumin/Globulin Ratio 0.8 L (1-2) Urine Color (Yellow) Urine Appearance (Clear) Urine pH (5.0-8.0) Ur Specific [place] (1.005-1.030) Urine Protein (Negative) Urine Glucose (UA) (Negative) Urine Ketones (Negative) Urine Occult Blood (Negative) Urine Nitrite (Negative) Urine Bilirubin (Negative) Urine Urobilinogen (0.2-1.0) Ur Leukocyte Esterase (Negative) Urine RBC (0-5) /hpf Urine WBC (0-5) /hpf Ur Squamous Epith Cells (0-5) /hpf Urine Bacteria (FEW) /hpf Urine Mucus (FEW) /hpf SARS-CoV-2 RNA (BHANU) (NEGATIVE) Blood Type Gel Antibody Screen Crossmatch Med Orders - Current: Current Medications Furosemide (Furosemide 40 Mg/4 Ml Vial) 40 mg IVPUSH DAILY [facility] Last Admin: 07/11/21 07:32 Dose: 40 mg Documented by: Sodium Chloride (Normal Saline) 1,000 mls @ 75 mls/hr IV ASDIRECTED RIKY Last Admin: 07/11/21 18:05 Dose: 125 mls/hr Documented by: Diltiazem HCl 100 mg/ Sodium (Chloride) 100 mls @ 10 mls/hr IV TITRATE RIKY; Protocol Last Admin: 07/11/21 23:31 Dose: 10 mg/hr, 10 mls/hr Documented by: Ceftriaxone Sodium 2 gm/ (Sodium Chloride) 100 mls @ 200 mls/hr IV Q24H RIKY Diltiazem HCl 100 mg/ Sodium (Chloride) 100 mls @ 10 mls/hr IV TITRATE RIKY Last Infusion: 07/11/21 18:40 Dose: 10 mg/hr, 10 mls/hr Documented by: Isosorbide Mononitrate (Isosorbide Mononitrate 60 Mg Tab.Er) 60 mg PO BID [facility] Last Admin: 07/11/21 21:08 Dose: 60 mg Documented by: Lorazepam (Lorazepam 1 Mg Tab) 1 mg PO TID PRN PRN Reason: Anxiety Last Admin: 07/11/21 18:05 Dose: 1 mg Documented by: Magnesium Oxide (Magnesium Oxide 400 Mg Tab) 400 mg PO DAILY [facility] Metoprolol Succinate (Metoprolol Succinate 25 Mg Tab.Er) 75 mg PO BID [facility] Last Admin: 07/11/21 21:08 Dose: 75 mg Documented by: Morphine Sulfate (Morphine 15 Mg Tab.Er) 15 mg PO DAILY@1200 RIKY Morphine Sulfate (Morphine 15 Mg Tab.Er) 30 mg PO BID@0400,2000 [facility] Last Admin: 07/12/21 04:10 Dose: 30 mg Documented by: Non-Formulary Medication (Olanzapine) 10 mg PO BEDTIME RIKY Nystatin (Nystatin Susp 100,000 Unit/Ml 5 Ml Ud Cup) 5 ml PO TID RIKY Last Admin: 07/11/21 21:08 Dose: 5 ml Documented by: Ondansetron HCl (Ondansetron 4 Mg Tab.Dis) 8 mg PO TID PRN PRN Reason: Nausea Oxycodone/Acetaminophen (Acetaminophen/Oxycodone 325-5 Mg Tab) 1 tab PO Q6H PRN PRN Reason: Pain (severe 7-10) Prochlorperazine Maleate (Prochlorperazine 5 Mg Tab) 10 mg PO QID PRN PRN Reason: Vomiting Discontinued Medications Digoxin (Digoxin 500 Mcg/2 Ml Amp) 250 mcg IVPUSH ONETIME ONE Stop: 07/11/21 10:16 Last Admin: 07/11/21 10:26 Dose: 250 mcg Documented by: Digoxin (Digoxin 500 Mcg/2 Ml Amp) 125 mcg IVPUSH ONETIME ONE Stop: 07/11/21 12:31 Last Admin: 07/11/21 18:04 Dose: Not Given Documented by: Digoxin (Digoxin 500 Mcg/2 Ml Amp) 125 mcg IVPUSH ONETIME ONE Stop: 07/11/21 14:31 Last Admin: 07/11/21 14:32 Dose: 125 mcg Documented by: Digoxin (Digoxin 500 Mcg/2 Ml Amp) 125 mcg IVPUSH ONETIME ONE Stop: 07/11/21 18:31 Last Admin: 07/11/21 18:28 Dose: 125 mcg Documented by: Diltiazem HCl (Diltiazem 50 Mg/10 Ml Sdv) 5 mg IVPUSH ONETIME ONE Stop: 07/11/21 07:21 Last Admin: 07/11/21 07:37 Dose: 5 mg Documented by: Diltiazem HCl (Diltiazem 50 Mg/10 Ml Sdv) 10 mg IVPUSH ONETIME ONE Stop: 07/11/21 08:43 Last Admin: 07/11/21 08:49 Dose: 10 mg Documented by: Diltiazem HCl (Diltiazem 50 Mg/10 Ml Sdv) 10 mg IVPUSH ONETIME ONE Stop: 07/11/21 09:37 Last Admin: 07/11/21 09:53 Dose: 10 mg Documented by: Diltiazem HCl (Diltiazem 50 Mg/10 Ml Sdv) 10 mg IVPUSH ONETIME ONE Stop: 07/11/21 09:54 Last Admin: 07/11/21 10:44 Dose: Not Given Documented by: Furosemide (Furosemide 40 Mg/4 Ml Vial) 40 mg IVPUSH NOW ONE Stop: 07/11/21 14:01 Last Admin: 07/11/21 12:34 Dose: 40 mg Documented by: Furosemide (Furosemide 40 Mg/4 Ml Vial) 40 mg IVPUSH NOW ONE Stop: 07/11/21 18:31 Last Admin: 07/11/21 18:28 Dose: 40 mg Documented by: Cefepime HCl 2 gm/ Sodium (Chloride) 50 mls @ 100 mls/hr IV ONETIME ONE Stop: 07/11/21 07:43 Last Admin: 07/11/21 07:32 Dose: 100 mls/hr Documented by: - Exam Quality Assessment: Supplemental Oxygen. No: DVT Prophylaxis (Due to bladder hemorrhage) Urinary Catheter Total Time: 0Days 11Hours General: Alert, Oriented, Lethargic HEENT: Pupils Equal, Pupils Reactive, EOMI. No: Mucous Membr. Moist/[place] (Dry) Neck: Supple, Trachea Midline Lungs: Clear to Auscultation, Normal Respiratory Effort Cardiovascular: Irregular Rhythm, Tachycardia GI/Abdominal Exam: Normal Bowel Sounds, Soft, Non-Tender, No Distention (Female) Exam: Deferred Back Exam: Normal Inspection Extremities: Pedal Edema (+2 pitting edema) Skin: Warm, Dry, Intact Neurological: No New Focal Deficit Psy/Mental Status: Alert, Depressed - Patient Data Lab Results Last 24 hrs: Laboratory Results - last 24 hr 07/11/21 07/11/21 07/11/21 Range/Units 05:42 05:42 05:42 WBC (3.98-10.04) K/mm3 RBC (3.98-5.22) M/mm3 Hgb (11.2-15.7) gm/dl Hct (34.1-44.9) % MCV (79.4-94.8) fl MCH (25.6-32.2) pg MCHC (32.2-35.5) g/dl RDW Std Deviation (36.4-46.3) fL Plt Count (182-369) K/mm3 MPV (9.4-12.3) fl Neut % (Auto) (34.0-71.1) % Lymph % (Auto) (19.3-51.7) % [place] % (Auto) (4.7-12.5) % Eos % (Auto) (0.7-5.8) Baso % (Auto) (0.1-1.2) % Neut # (Auto) (1.56-6.13) K/mm3 Lymph # (Auto) (1.18-3.74) K/mm3 [place] # (Auto) (0.24-0.36) K/mm3 Eos # (Auto) (0.04-0.36) K/mm3 Baso # (Auto) (0.01-0.08) K/mm3 Manual Slide Review Abnormal smear Sodium 126 L D (136-145) mEq/L Potassium 5.8 H D (3.5-5.1) mEq/L Chloride 95 L (98-107) mEq/L Carbon Dioxide 21 (21-32) mEq/L Anion Gap 15.8 H (5-15) BUN 52 H D (7-18) mg/dL Creatinine 1.3 H (0.55-1.02) mg/dL Est Cr Clr Drug Dosing 34.27 mL/min Estimated GFR (MDRD) 40 (>60) mL/min BUN/Creatinine Ratio 40.0 H (14-18) Glucose 116 H (70-99) mg/dL Lactic Acid (0.4-2.0) mmol/L Calcium 9.4 (8.5-10.1) mg/dL Magnesium (1.8-2.4) mg/dL Total Bilirubin 1.0 (0.2-1.0) mg/dL AST 18 (15-37) U/L ALT 53 (14-59) U/L Alkaline Phosphatase 61 (46-116) U/L Troponin I < 0.017 (0.00-0.056) ng/mL NT-Pro-B Natriuret Pep 74041 H (0-125) pg/mL Total Protein 5.6 L (6.4-8.2) g/dl Albumin 2.3 L (3.4-5.0) g/dl Globulin 3.3 gm/dL Albumin/Globulin Ratio 0.7 L (1-2) Urine Color (Yellow) Urine Appearance (Clear) Urine pH (5.0-8.0) Ur Specific [place] (1.005-1.030) Urine Protein (Negative) Urine Glucose (UA) (Negative) Urine Ketones (Negative) Urine Occult Blood (Negative) Urine Nitrite (Negative) Urine Bilirubin (Negative) Urine Urobilinogen (0.2-1.0) Ur Leukocyte Esterase (Negative) Urine RBC (0-5) /hpf Urine WBC (0-5) /hpf Ur Squamous Epith Cells (0-5) /hpf Urine Bacteria (FEW) /hpf Urine Mucus (FEW) /hpf SARS-CoV-2 RNA (BHANU) (NEGATIVE) Blood Type Gel Antibody Screen Crossmatch 07/11/21 07/11/21 07/11/21 Range/Units 05:42 05:42 08:05 WBC (3.98-10.04) K/mm3 RBC (3.98-5.22) M/mm3 Hgb (11.2-15.7) gm/dl Hct (34.1-44.9) % MCV (79.4-94.8) fl MCH (25.6-32.2) pg MCHC (32.2-35.5) g/dl RDW Std Deviation (36.4-46.3) fL Plt Count (182-369) K/mm3 MPV (9.4-12.3) fl Neut % (Auto) (34.0-71.1) % Lymph % (Auto) (19.3-51.7) % [place] % (Auto) (4.7-12.5) % Eos % (Auto) (0.7-5.8) Baso % (Auto) (0.1-1.2) % Neut # (Auto) (1.56-6.13) K/mm3 Lymph # (Auto) (1.18-3.74) K/mm3 [place] # (Auto) (0.24-0.36) K/mm3 Eos # (Auto) (0.04-0.36) K/mm3 Baso # (Auto) (0.01-0.08) K/mm3 Manual Slide Review Sodium (136-145) mEq/L Potassium (3.5-5.1) mEq/L Chloride (98-107) mEq/L Carbon Dioxide (21-32) mEq/L Anion Gap (5-15) BUN (7-18) mg/dL Creatinine (0.55-1.02) mg/dL Est Cr Clr Drug Dosing mL/min Estimated GFR (MDRD) (>60) mL/min BUN/Creatinine Ratio (14-18) Glucose (70-99) mg/dL Lactic Acid 2.1 H* (0.4-2.0) mmol/L Calcium (8.5-10.1) mg/dL Magnesium (1.8-2.4) mg/dL Total Bilirubin (0.2-1.0) mg/dL AST (15-37) U/L ALT (14-59) U/L Alkaline Phosphatase (46-116) U/L Troponin I (0.00-0.056) ng/mL NT-Pro-B Natriuret Pep (0-125) pg/mL Total Protein (6.4-8.2) g/dl Albumin (3.4-5.0) g/dl Globulin gm/dL Albumin/Globulin Ratio (1-2) Urine Color (Yellow) Urine Appearance (Clear) Urine pH (5.0-8.0) Ur Specific [place] (1.005-1.030) Urine Protein (Negative) Urine Glucose (UA) (Negative) Urine Ketones (Negative) Urine Occult Blood (Negative) Urine Nitrite (Negative) Urine Bilirubin (Negative) Urine Urobilinogen (0.2-1.0) Ur Leukocyte Esterase (Negative) Urine RBC (0-5) /hpf Urine WBC (0-5) /hpf Ur Squamous Epith Cells (0-5) /hpf Urine Bacteria (FEW) /hpf Urine Mucus (FEW) /hpf SARS-CoV-2 RNA (BHANU) Negative (NEGATIVE) Blood Type A POSITIVE Gel Antibody Screen Negative Crossmatch See Detail 07/11/21 07/11/21 07/11/21 Range/Units 09:41 12:49 12:49 WBC (3.98-10.04) K/mm3 RBC (3.98-5.22) M/mm3 Hgb (11.2-15.7) gm/dl Hct (34.1-44.9) % MCV (79.4-94.8) fl MCH (25.6-32.2) pg MCHC (32.2-35.5) g/dl RDW Std Deviation (36.4-46.3) fL Plt Count (182-369) K/mm3 MPV (9.4-12.3) fl Neut % (Auto) (34.0-71.1) % Lymph % (Auto) (19.3-51.7) % [place] % (Auto) (4.7-12.5) % Eos % (Auto) (0.7-5.8) Baso % (Auto) (0.1-1.2) % Neut # (Auto) (1.56-6.13) K/mm3 Lymph # (Auto) (1.18-3.74) K/mm3 [place] # (Auto) (0.24-0.36) K/mm3 Eos # (Auto) (0.04-0.36) K/mm3 Baso # (Auto) (0.01-0.08) K/mm3 Manual Slide Review Sodium 129 L (136-145) mEq/L Potassium 4.9 (3.5-5.1) mEq/L Chloride 97 L (98-107) mEq/L Carbon Dioxide 21 (21-32) mEq/L Anion Gap 15.9 H (5-15) BUN 50 H (7-18) mg/dL Creatinine 1.3 H (0.55-1.02) mg/dL Est Cr Clr Drug Dosing 34.27 mL/min Estimated GFR (MDRD) 40 (>60) mL/min BUN/Creatinine Ratio 38.5 H (14-18) Glucose 109 H (70-99) mg/dL Lactic Acid 2.1 H* 2.7 H* (0.4-2.0) mmol/L Calcium 8.9 (8.5-10.1) mg/dL Magnesium (1.8-2.4) mg/dL Total Bilirubin 1.5 H (0.2-1.0) mg/dL AST 21 (15-37) U/L ALT 47 (14-59) U/L Alkaline Phosphatase 58 (46-116) U/L Troponin I < 0.017 (0.00-0.056) ng/mL NT-Pro-B Natriuret Pep (0-125) pg/mL Total Protein 5.1 L (6.4-8.2) g/dl Albumin 2.2 L (3.4-5.0) g/dl Globulin 2.9 gm/dL Albumin/Globulin Ratio 0.8 L (1-2) Urine Color (Yellow) Urine Appearance (Clear) Urine pH (5.0-8.0) Ur Specific [place] (1.005-1.030) Urine Protein (Negative) Urine Glucose (UA) (Negative) Urine Ketones (Negative) Urine Occult Blood (Negative) Urine Nitrite (Negative) Urine Bilirubin (Negative) Urine Urobilinogen (0.2-1.0) Ur Leukocyte Esterase (Negative) Urine RBC (0-5) /hpf Urine WBC (0-5) /hpf Ur Squamous Epith Cells (0-5) /hpf Urine Bacteria (FEW) /hpf Urine Mucus (FEW) /hpf SARS-CoV-2 RNA (BHANU) (NEGATIVE) Blood Type Gel Antibody Screen Crossmatch 07/11/21 07/11/21 07/11/21 Range/Units 15:50 17:50 19:13 WBC (3.98-10.04) K/mm3 RBC (3.98-5.22) M/mm3 Hgb 10.0 L D (11.2-15.7) gm/dl Hct (34.1-44.9) % MCV (79.4-94.8) fl MCH (25.6-32.2) pg MCHC (32.2-35.5) g/dl RDW Std Deviation (36.4-46.3) fL Plt Count (182-369) K/mm3 MPV (9.4-12.3) fl Neut % (Auto) (34.0-71.1) % Lymph % (Auto) (19.3-51.7) % [place] % (Auto) (4.7-12.5) % Eos % (Auto) (0.7-5.8) Baso % (Auto) (0.1-1.2) % Neut # (Auto) (1.56-6.13) K/mm3 Lymph # (Auto) (1.18-3.74) K/mm3 [place] # (Auto) (0.24-0.36) K/mm3 Eos # (Auto) (0.04-0.36) K/mm3 Baso # (Auto) (0.01-0.08) K/mm3 Manual Slide Review Sodium (136-145) mEq/L Potassium (3.5-5.1) mEq/L Chloride (98-107) mEq/L Carbon Dioxide (21-32) mEq/L Anion Gap (5-15) BUN (7-18) mg/dL Creatinine (0.55-1.02) mg/dL Est Cr Clr Drug Dosing mL/min Estimated GFR (MDRD) (>60) mL/min BUN/Creatinine Ratio (14-18) Glucose (70-99) mg/dL Lactic Acid 2.5 H* (0.4-2.0) mmol/L Calcium (8.5-10.1) mg/dL Magnesium (1.8-2.4) mg/dL Total Bilirubin (0.2-1.0) mg/dL AST (15-37) U/L ALT (14-59) U/L Alkaline Phosphatase (46-116) U/L Troponin I (0.00-0.056) ng/mL NT-Pro-B Natriuret Pep (0-125) pg/mL Total Protein (6.4-8.2) g/dl Albumin (3.4-5.0) g/dl Globulin gm/dL Albumin/Globulin Ratio (1-2) Urine Color Yellow (Yellow) Urine Appearance Slt cloudy H (Clear) Urine pH 6.0 (5.0-8.0) Ur Specific [place] 1.020 (1.005-1.030) Urine Protein 1+ H (Negative) Urine Glucose (UA) Negative (Negative) Urine Ketones Negative (Negative) Urine Occult Blood 3+ H (Negative) Urine Nitrite Negative (Negative) Urine Bilirubin Negative (Negative) Urine Urobilinogen 0.2 (0.2-1.0) Ur Leukocyte Esterase Negative (Negative) Urine RBC >100 H (0-5) /hpf Urine WBC 0-5 (0-5) /hpf Ur Squamous Epith Cells 0-5 (0-5) /hpf Urine Bacteria Few (FEW) /hpf Urine Mucus Not seen (FEW) /hpf SARS-CoV-2 RNA (BHANU) (NEGATIVE) Blood Type Gel Antibody Screen Crossmatch 07/11/21 07/11/21 07/12/21 Range/Units 19:13 22:03 01:07 WBC (3.98-10.04) K/mm3 RBC (3.98-5.22) M/mm3 Hgb (11.2-15.7) gm/dl Hct (34.1-44.9) % MCV (79.4-94.8) fl MCH (25.6-32.2) pg MCHC (32.2-35.5) g/dl RDW Std Deviation (36.4-46.3) fL Plt Count (182-369) K/mm3 MPV (9.4-12.3) fl Neut % (Auto) (34.0-71.1) % Lymph % (Auto) (19.3-51.7) % [place] % (Auto) (4.7-12.5) % Eos % (Auto) (0.7-5.8) Baso % (Auto) (0.1-1.2) % Neut # (Auto) (1.56-6.13) K/mm3 Lymph # (Auto) (1.18-3.74) K/mm3 [place] # (Auto) (0.24-0.36) K/mm3 Eos # (Auto) (0.04-0.36) K/mm3 Baso # (Auto) (0.01-0.08) K/mm3 Manual Slide Review Sodium (136-145) mEq/L Potassium (3.5-5.1) mEq/L Chloride (98-107) mEq/L Carbon Dioxide (21-32) mEq/L Anion Gap (5-15) BUN (7-18) mg/dL Creatinine (0.55-1.02) mg/dL Est Cr Clr Drug Dosing mL/min Estimated GFR (MDRD) (>60) mL/min BUN/Creatinine Ratio (14-18) Glucose (70-99) mg/dL Lactic Acid 3.0 H* 2.6 H* 1.7 (0.4-2.0) mmol/L Calcium (8.5-10.1) mg/dL Magnesium (1.8-2.4) mg/dL Total Bilirubin (0.2-1.0) mg/dL AST (15-37) U/L ALT (14-59) U/L Alkaline Phosphatase (46-116) U/L Troponin I (0.00-0.056) ng/mL NT-Pro-B Natriuret Pep (0-125) pg/mL Total Protein (6.4-8.2) g/dl Albumin (3.4-5.0) g/dl Globulin gm/dL Albumin/Globulin Ratio (1-2) Urine Color (Yellow) Urine Appearance (Clear) Urine pH (5.0-8.0) Ur Specific [place] (1.005-1.030) Urine Protein (Negative) Urine Glucose (UA) (Negative) Urine Ketones (Negative) Urine Occult Blood (Negative) Urine Nitrite (Negative) Urine Bilirubin (Negative) Urine Urobilinogen (0.2-1.0) Ur Leukocyte Esterase (Negative) Urine RBC (0-5) /hpf Urine WBC (0-5) /hpf Ur Squamous Epith Cells (0-5) /hpf Urine Bacteria (FEW) /hpf Urine Mucus (FEW) /hpf SARS-CoV-2 RNA (BHANU) (NEGATIVE) Blood Type Gel Antibody Screen Crossmatch 07/12/21 07/12/21 Range/Units 04:50 04:50 WBC 8.24 (3.98-10.04) K/mm3 RBC 3.08 L (3.98-5.22) M/mm3 Hgb 8.7 L (11.2-15.7) gm/dl Hct 27.5 L (34.1-44.9) % MCV 89.3 (79.4-94.8) fl MCH 28.2 (25.6-32.2) pg MCHC 31.6 L (32.2-35.5) g/dl RDW Std Deviation 56.6 H (36.4-46.3) fL Plt Count 257 D (182-369) K/mm3 MPV 9.6 (9.4-12.3) fl Neut % (Auto) 87.4 H (34.0-71.1) % Lymph % (Auto) 1.9 L (19.3-51.7) % [place] % (Auto) 1.2 L (4.7-12.5) % Eos % (Auto) 5.0 (0.7-5.8) Baso % (Auto) 0.0 L (0.1-1.2) % Neut # (Auto) 7.20 H (1.56-6.13) K/mm3 Lymph # (Auto) 0.16 L (1.18-3.74) K/mm3 [place] # (Auto) 0.10 L (0.24-0.36) K/mm3 Eos # (Auto) 0.41 H (0.04-0.36) K/mm3 Baso # (Auto) 0.00 L (0.01-0.08) K/mm3 Manual Slide Review Abnormal smear Sodium 134 L (136-145) mEq/L Potassium 3.2 L D (3.5-5.1) mEq/L Chloride 101 (98-107) mEq/L Carbon Dioxide 23 (21-32) mEq/L Anion Gap 13.2 (5-15) BUN 47 H (7-18) mg/dL Creatinine 1.2 H (0.55-1.02) mg/dL Est Cr Clr Drug Dosing 37.13 mL/min Estimated GFR (MDRD) 44 (>60) mL/min BUN/Creatinine Ratio 39.2 H (14-18) Glucose 87 (70-99) mg/dL Lactic Acid (0.4-2.0) mmol/L Calcium 8.2 L (8.5-10.1) mg/dL Magnesium 2.0 (1.8-2.4) mg/dL Total Bilirubin 1.0 (0.2-1.0) mg/dL AST 16 (15-37) U/L ALT 38 (14-59) U/L Alkaline Phosphatase 53 (46-116) U/L Troponin I (0.00-0.056) ng/mL NT-Pro-B Natriuret Pep (0-125) pg/mL Total Protein 4.6 L (6.4-8.2) g/dl Albumin 2.0 L (3.4-5.0) g/dl Globulin 2.6 gm/dL Albumin/Globulin Ratio 0.8 L (1-2) Urine Color (Yellow) Urine Appearance (Clear) Urine pH (5.0-8.0) Ur Specific [place] (1.005-1.030) Urine Protein (Negative) Urine Glucose (UA) (Negative) Urine Ketones (Negative) Urine Occult Blood (Negative) Urine Nitrite (Negative) Urine Bilirubin (Negative) Urine Urobilinogen (0.2-1.0) Ur Leukocyte Esterase (Negative) Urine RBC (0-5) /hpf Urine WBC (0-5) /hpf Ur Squamous Epith Cells (0-5) /hpf Urine Bacteria (FEW) /hpf Urine Mucus (FEW) /hpf SARS-CoV-2 RNA (BHANU) (NEGATIVE) Blood Type Gel Antibody Screen Crossmatch Result Diagrams: 07/12/21 04:50 07/12/21 04:50 Sepsis Event Note - Evaluation Sepsis Screening Result: Sepsis Risk - Focused Exam Vital Signs: Vital Signs Temp Pulse Resp BP BP Pulse Ox Pulse Ox 07/12/21 06:31 14 107/56 L 94 L 07/12/21 06:00 20 114/55 L 94 L 07/12/21 05:31 14 103/46 L 94 L 07/12/21 05:00 20 107/45 L 94 L 07/12/21 04:31 13 96/52 L 93 L 07/12/21 04:00 36.2 C 14 100/46 L 94 L 07/12/21 03:31 13 101/45 L 94 L 07/12/21 03:00 13 91/48 L 95 07/12/21 02:31 13 97/46 L 95 07/12/21 02:00 15 108/45 L 95 07/12/21 01:31 15 112/47 L 95 07/12/21 01:00 15 96/41 L 94 L 07/12/21 00:31 14 93/48 L 95 07/12/21 00:00 36.2 C 14 105/40 L 95 07/11/21 23:35 96 07/11/21 23:31 14 100/48 L 96 07/11/21 23:00 14 101/48 L 97 07/11/21 22:45 97 07/11/21 22:30 15 101/56 L 95 07/11/21 22:00 17 100/52 L 97 07/11/21 21:31 16 108/36 L 97 07/11/21 21:08 113 H 109/60 07/11/21 21:05 35.7 C L 17 109/60 99 07/11/21 20:30 15 97/80 92 L 07/11/21 20:29 16 99 07/11/21 20:01 18 97 07/11/21 20:00 15 111/58 L 98 07/11/21 19:59 17 96 10/29/21 19:30 19 104/55 L 98 07/11/21 19:29 23 H 100 07/11/21 19:01 19 91/47 L 100 07/11/21 19:00 20 95 - Problem List & Annotations (1) Persistent atrial fibrillation with RVR SNOMED Code(s): 292967814, 573187948625224 Code(s): I48.19 - OTHER PERSISTENT ATRIAL FIBRILLATION Status: Acute Priority: High Current Visit: Yes (2) Congestive heart failure SNOMED Code(s): 69329144 Code(s): I50.9 - HEART FAILURE, UNSPECIFIED Status: Acute Current Visit: Yes Qualifiers: Heart failure type: unspecified Heart failure chronicity: acute Qualified Code(s): I50.9 - Heart failure, unspecified Annotation/Comment:: Atrial fibrillation with RVR (3) Anemia SNOMED Code(s): 233042754 Code(s): D64.9 - ANEMIA, UNSPECIFIED Status: Acute Current Visit: Yes Qualifiers: Anemia type: other cause Other causes of anemia: acute posthemorrhagic Qualified Code(s): D62 - Acute posthemorrhagic anemia (4) Gross hematuria SNOMED Code(s): 933904525 Code(s): R31.0 - GROSS HEMATURIA Status: Acute Priority: High Current Visit: Yes (5) H/O primary malignant neoplasm of urinary bladder SNOMED Code(s): 869581994 Code(s): Z85.51 - PERSONAL HISTORY OF MALIGNANT NEOPLASM OF BLADDER Status: Chronic Priority: High Current Visit: Yes (6) Leukocytosis SNOMED Code(s): 441145851, 566646534 Code(s): D72.829 - ELEVATED WHITE BLOOD CELL COUNT, UNSPECIFIED Status: Resolved Priority: High Current Visit: Yes Qualifiers: Leukocytosis type: bandemia Qualified Code(s): D72.825 - Bandemia (7) Metastatic cancer to lung SNOMED Code(s): 76096408 Code(s): C78.00 - SECONDARY MALIGNANT NEOPLASM OF UNSPECIFIED LUNG Status: Chronic Priority: High Current Visit: Yes Qualifiers: Laterality: right Qualified Code(s): C78.01 - Secondary malignant neoplasm of right lung - Problem List Review Problem List Initiated/Reviewed/Updated: Yes - My Orders Last 24 Hours: My Active Orders 07/11/21 15:30 Acetaminophen/oxyCODONE [Percocet 325-5 MG] 1 tab PO Q6H PRN LORazepam [Ativan] 1 mg PO TID PRN Ondansetron [Zofran ODT] 8 mg PO TID PRN Prochlorperazine [Compazine] 10 mg PO QID PRN 07/11/21 15:39 Bedrest Bedside Commode [RC] ASDIRECTED VTE Mechanical Contraindications [AST] Per Unit Routine VTE Pharmacological Contraindications [AST] Per Unit Routine Resuscitation Status Routine 07/11/21 15:40 Cardiac Monitoring [RC] CONTINUOUS Oxygen Therapy [RC] PRN VTE/DVT Education [RC] Vital Signs [RC] Q1HR 07/11/21 16:39 Urinary Catheter Assessment [RC] Q4HR 07/11/21 16:45 Liu Catheter Insertion [Insert Urinary Catheter] [OM.PC] Q24H 07/11/21 Dinner Regular Diet [DIET] 07/11/21 20:00 Morphine [MS Contin] 30 mg PO BID@0400,199907/11/21 21:00 Isosorbide Mononitrate [Imdur] 60 mg PO BID Metoprolol Succinate [Toprol XL] 75 mg PO BID Nystatin [Mycostatin] 5 ml PO TID OLANZapine 10 mg PO BEDTIME 07/12/21 06:47 DIGOXIN [CHEM] Routine 07/12/21 09:00 Magnesium Oxide 400 mg PO DAILY cefTRIAXone [Rocephin] 2 gm Sodium Chloride 0.9% [Normal Saline AdvBag] 100 ml IV Q24H 07/12/21 12:00 Morphine [MS Contin] 15 mg PO DAILY@1200 - Plan Plan:: The patient is a 71-year-old lady who has been admitted as an inpatient to the intensive care unit. She is currently on a Cardizem drip and has received 2 units of blood. I have ordered an H&H to be completed at 5 PM to recheck her hemoglobin and determine if she needs further transfusions. The patient will be kept on telemetry due to the RVR and she will be started on digitalis starting tomorrow. The patient has had willie blood hematuria and therefore will not receive pharmacological DVT prophylaxis. I have also placed the patient on ceftriaxone until pneumonia is excluded. The patient does have heart failure likely related to her atrial fibrillation and she will need to have input and output recorded. The patient has needed gentle fluid resuscitation with the use of normal saline at 75 mL/h. This is balanced by use of Lasix to help reduce her heart load. She does have marked elevation of her BNP around 22,000. Repeat laboratory studies have been ordered for the morning. It is unsure if this is new for her or not. She previously had been on Eliquis and diltiazem and this may be a recurrence of atrial fibrillation. I had a discussion with the patient and the patient's , Gerry, and discussed resuscitation status with them. For now the patient is in a DO NOT RESUSCITATE DO NOT INTUBATE category but they may require this to be changed to full code. I also explained to the patient and the patient's the stroke risk by pharmacological DVT prophylaxis being contraindicated. Regardless, the patient's overall prognosis is poor at this time. 07/12/2021 The patient for now is in a DO NOT INTUBATE DO NOT RESUSCITATE category. The patient's A. fib remains in RVR and the digitalis level came back at 1.1. The patient will have daily digoxin to help her rate control. She will remain in the intensive care unit on telemetry. She is on Cardizem drip and this will be continued. Her hemoglobin in 12 hours is gone from 10.0 g/dL to 8.7 g/dL in a 12-hour. The patient still has willie hematuria. The patient has had an increase in her D-dimer however, she cannot be anticoagulated pharmacologically due to her acute hemorrhage. Will consider blood transfusion after discussion with the patient's next of kin and power of state's attorney. I am afraid that this may be futile. Regardless, I have ordered repeat laboratory studies for the morning. The patient will have her diet as tolerated. The patient's overall prognosis at this point is poor.
[2021-07-12] MEDS: Sodium Chloride 0.9% 1,000 ML IV SCH ×2 (07:10→20:35)
[2021-07-12] MEDS: Digoxin 500 MCG/2 ML Amp IVPUSH SCH (08:47)
[2021-07-12] MEDS: Metoprolol Succinate 25 MG Tab.ER PO SCH ×2 (08:47→20:02)
[2021-07-12] MEDS: Magnesium Oxide 400 MG Tab PO SCH (08:47)
[2021-07-12] MEDS: Isosorbide Mononitrate 60 MG Tab.ER PO SCH ×2 (08:48→20:04)
[2021-07-12] MEDS: Furosemide 40 MG/4 ML VIAL IVPUSH SCH (08:48)
[2021-07-12] MEDS: Nystatin Susp 100,000 Unit/ML 5 ML UD Cup PO SCH ×3 (08:49→20:04)
[2021-07-12] MEDS: cefTRIAXone 2 GM in Sodium Chloride 0.9% 100 ML IV SCH (08:49)
[2021-07-12] MEDS: Diltiazem 100 MG in Sodium Chloride 0.9% 100 ML IV SCH ×2 (09:49→18:22)
[2021-07-12] MEDS: LORazepam 1 MG Tab PO PRN (20:37)
[2021-07-13] MEDS: Morphine 15 MG Tab.ER PO SCH ×4 (04:27→20:49)
[2021-07-13] MEDS: Diltiazem 100 MG in Sodium Chloride 0.9% 100 ML IV SCH (04:29)
[2021-07-13] MEDS ORDERED: Potassium Chloride 20 MEQ Tab.ER PO ONE (07:15)
[2021-07-13] MEDS ORDERED: Potassium Chloride 10 MEQ in Premix Bag 1 BAG IV SCH (07:30)
--- NOTE | 2021-07-13 08:03 | PCM.PN ---
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 Subjective Update: Patient is a 71-year-old lady who had presented to the hospital on July 11, 2020 when due to atrial fibrillation with rapid ventricular rate. The patient was admitted to the ICU while on Cardizem drip and she has been started on IV digoxin. She was also noted to be in heart failure with a BNP of around 20,000. 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 The patient has had willie hematuria. The patient today says that she is pain-free. She feels a little better. She still feels very weak and fatigued. The patient is more awake and alert today. Functional Status: Reports: Pain Controlled, Tolerating Diet. Denies: New Symptoms - Review of Systems General: Reports: No Symptoms HEENT: Reports: No Symptoms Pulmonary: Reports: No Symptoms Cardiovascular: Reports: Palpitations, Edema Gastrointestinal: Reports: Abdominal Pain Genitourinary: Reports: No Symptoms Musculoskeletal: Reports: No Symptoms Skin: Reports: No Symptoms Neurological: Reports: No Symptoms Psychiatric: Reports: No Symptoms - Patient Data Vitals - Most Recent: Last Vital Signs Temp 36.4 C 07/13/21 04:00 Pulse 118 H 07/12/21 20:02 Resp 22 H 07/13/21 07:00 BP 102/51 L 07/13/21 07:00 Pulse Ox 94 L 07/13/21 07:00 Weight - Most Recent: 70.534 kg I&O - Last 24 Hours: Intake & Output 07/12/21 07/13/21 07/13/21 22:59 06:59 14:59 Intake Total 520 2452 Output Total 1100 375 Balance -580 2077 Lab Results Last 24 Hours: Laboratory Results - last 24 hr 07/12/21 07/13/21 07/13/21 Range/Units 14:07 05:01 05:01 WBC 7.47 (3.98-10.04) K/mm3 RBC 3.04 L (3.98-5.22) M/mm3 Hgb 8.8 L 8.4 L (11.2-15.7) gm/dl Hct 27.0 L (34.1-44.9) % MCV 88.8 (79.4-94.8) fl MCH 27.6 (25.6-32.2) pg MCHC 31.1 L (32.2-35.5) g/dl RDW Std Deviation 55.2 H (36.4-46.3) fL Plt Count 217 (182-369) K/mm3 MPV 9.8 (9.4-12.3) fl Neut % (Auto) 85.8 H (34.0-71.1) % Lymph % (Auto) 2.9 L (19.3-51.7) % [place] % (Auto) 1.5 L (4.7-12.5) % Eos % (Auto) 7.1 H (0.7-5.8) Baso % (Auto) 0.0 L (0.1-1.2) % Neut # (Auto) 6.41 H (1.56-6.13) K/mm3 Lymph # (Auto) 0.22 L (1.18-3.74) K/mm3 [place] # (Auto) 0.11 L (0.24-0.36) K/mm3 Eos # (Auto) 0.53 H (0.04-0.36) K/mm3 Baso # (Auto) 0.00 L (0.01-0.08) K/mm3 Manual Slide Review Abnormal smear Sodium 135 L (136-145) mEq/L Potassium 2.4 L* (3.5-5.1) mEq/L Chloride 102 (98-107) mEq/L Carbon Dioxide 24 (21-32) mEq/L Anion Gap 11.4 (5-15) BUN 31 H (7-18) mg/dL Creatinine 0.9 (0.55-1.02) mg/dL Est Cr Clr Drug Dosing 49.51 mL/min Estimated GFR (MDRD) > 60 (>60) mL/min BUN/Creatinine Ratio 34.4 H (14-18) Glucose 81 (70-99) mg/dL Calcium 8.4 L (8.5-10.1) mg/dL Magnesium 1.9 (1.8-2.4) mg/dL Total Bilirubin 0.7 (0.2-1.0) mg/dL AST 26 (15-37) U/L ALT 32 (14-59) U/L Alkaline Phosphatase 52 (46-116) U/L Total Protein 4.6 L (6.4-8.2) g/dl Albumin 1.6 L (3.4-5.0) g/dl Globulin 3.0 gm/dL Albumin/Globulin Ratio 0.5 L (1-2) Isac Results Last 24 Hours: Microbiology 07/11/21 07:00 Blood Culture - Preliminary Blood - Venous - Lab Draw 07/11/21 06:58 Blood Culture - Preliminary Blood - Venous Med Orders - Current: Current Medications Digoxin (Digoxin 500 Mcg/2 Ml Amp) 125 mcg IVPUSH DAILY [facility] Last Admin: 07/12/21 08:47 Dose: 125 mcg Documented by: Furosemide (Furosemide 40 Mg/4 Ml Vial) 40 mg IVPUSH DAILY [facility] Last Admin: 07/12/21 08:48 Dose: 40 mg Documented by: Sodium Chloride (Normal Saline) 1,000 mls @ 75 mls/hr IV ASDIRECTED [facility] Last Admin: 07/12/21 20:35 Dose: 75 mls/hr Documented by: Diltiazem HCl 100 mg/ Sodium (Chloride) 100 mls @ 10 mls/hr IV TITRATE [facility]; Protocol Last Admin: 07/13/21 04:29 Dose: 10 mg/hr, 10 mls/hr Documented by: Ceftriaxone Sodium 2 gm/ (Sodium Chloride) 100 mls @ 200 mls/hr IV Q24H [facility] Last Admin: 07/12/21 08:49 Dose: 200 mls/hr Documented by: Isosorbide Mononitrate (Isosorbide Mononitrate 60 Mg Tab.Er) 60 mg PO BID [facility] Last Admin: 07/12/21 20:04 Dose: 60 mg Documented by: Lorazepam (Lorazepam 1 Mg Tab) 1 mg PO TID PRN PRN Reason: Anxiety Last Admin: 07/12/21 20:37 Dose: 1 mg Documented by: Magnesium Oxide (Magnesium Oxide 400 Mg Tab) 400 mg PO DAILY [facility] Last Admin: 07/12/21 08:47 Dose: 400 mg Documented by: Metoprolol Succinate (Metoprolol Succinate 25 Mg Tab.Er) 75 mg PO BID [facility] Last Admin: 07/12/21 20:02 Dose: 75 mg Documented by: Morphine Sulfate (Morphine 15 Mg Tab.Er) 15 mg PO DAILY@1200 [facility] Last Admin: 07/12/21 13:18 Dose: 15 mg Documented by: Morphine Sulfate (Morphine 15 Mg Tab.Er) 30 mg PO BID@0400,2000 [facility] Last Admin: 07/13/21 04:27 Dose: 30 mg Documented by: Nystatin (Nystatin Susp 100,000 Unit/Ml 5 Ml Ud Cup) 5 ml PO TID [facility] Last Admin: 07/12/21 20:04 Dose: 5 ml Documented by: Ondansetron HCl (Ondansetron 4 Mg Tab.Dis) 8 mg PO TID PRN PRN Reason: Nausea Oxycodone/Acetaminophen (Acetaminophen/Oxycodone 325-5 Mg Tab) 1 tab PO Q6H PRN PRN Reason: Pain (severe 7-10) Prochlorperazine Maleate (Prochlorperazine 5 Mg Tab) 10 mg PO QID PRN PRN Reason: Vomiting Discontinued Medications Digoxin (Digoxin 500 Mcg/2 Ml Amp) 250 mcg IVPUSH ONETIME ONE Stop: 07/11/21 10:16 Last Admin: 07/11/21 10:26 Dose: 250 mcg Documented by: Digoxin (Digoxin 500 Mcg/2 Ml Amp) 125 mcg IVPUSH ONETIME ONE Stop: 07/11/21 12:31 Last Admin: 07/11/21 18:04 Dose: Not Given Documented by: Digoxin (Digoxin 500 Mcg/2 Ml Amp) 125 mcg IVPUSH ONETIME ONE Stop: 07/11/21 14:31 Last Admin: 07/11/21 14:32 Dose: 125 mcg Documented by: Digoxin (Digoxin 500 Mcg/2 Ml Amp) 125 mcg IVPUSH ONETIME ONE Stop: 07/11/21 18:31 Last Admin: 07/11/21 18:28 Dose: 125 mcg Documented by: Diltiazem HCl (Diltiazem 50 Mg/10 Ml Sdv) 5 mg IVPUSH ONETIME ONE Stop: 07/11/21 07:21 Last Admin: 07/11/21 07:37 Dose: 5 mg Documented by: Diltiazem HCl (Diltiazem 50 Mg/10 Ml Sdv) 10 mg IVPUSH ONETIME ONE Stop: 07/11/21 08:43 Last Admin: 07/11/21 08:49 Dose: 10 mg Documented by: Diltiazem HCl (Diltiazem 50 Mg/10 Ml Sdv) 10 mg IVPUSH ONETIME ONE Stop: 07/11/21 09:37 Last Admin: 07/11/21 09:53 Dose: 10 mg Documented by: Diltiazem HCl (Diltiazem 50 Mg/10 Ml Sdv) 10 mg IVPUSH ONETIME ONE Stop: 07/11/21 09:54 Last Admin: 07/11/21 10:44 Dose: Not Given Documented by: Furosemide (Furosemide 40 Mg/4 Ml Vial) 40 mg IVPUSH NOW ONE Stop: 07/11/21 14:01 Last Admin: 07/11/21 12:34 Dose: 40 mg Documented by: Furosemide (Furosemide 40 Mg/4 Ml Vial) 40 mg IVPUSH NOW ONE Stop: 07/11/21 18:31 Last Admin: 07/11/21 18:28 Dose: 40 mg Documented by: Cefepime HCl 2 gm/ Sodium (Chloride) 50 mls @ 100 mls/hr IV ONETIME ONE Stop: 07/11/21 07:43 Last Admin: 07/11/21 07:32 Dose: 100 mls/hr Documented by: Diltiazem HCl 100 mg/ Sodium (Chloride) 100 mls @ 10 mls/hr IV TITRATE [facility] Last Infusion: 07/11/21 18:40 Dose: 10 mg/hr, 10 mls/hr Documented by: Potassium Chloride 10 meq/ (Premix) 100 mls @ 100 mls/hr IV Q1H [facility] Stop: 07/13/21 09:29 Last Admin: 07/13/21 07:43 Dose: Not Given Documented by: Non-Formulary Medication (Olanzapine) 10 mg PO BEDTIME [facility] Last Admin: 07/11/21 22:00 Dose: Not Given Documented by: Potassium Chloride (Potassium Chloride 20 Meq Tab.Er) 40 meq PO ONETIME ONE Stop: 07/13/21 07:16 - Exam Quality Assessment: Supplemental Oxygen, Urine Catheter (Willie hematuria). No: DVT Prophylaxis Urinary Catheter Total Time: 1Days 11Hours General: Alert, Oriented, Cooperative HEENT: Pupils Equal, Pupils Reactive, EOMI, Mucous Membr. Moist/[place] Neck: Supple, Trachea Midline Lungs: Normal Respiratory Effort, Crackles (Widely scattered), Wheezing Cardiovascular: Regular Rate, No Murmurs, Irregular Rhythm GI/Abdominal Exam: Normal Bowel Sounds, Soft, Non-Tender, No Distention (Female) Exam: Deferred Back Exam: Normal Inspection, Full Range of Motion Extremities: Normal Inspection, Pedal Edema Skin: Warm, Dry, Intact Neurological: No New Focal Deficit Psy/Mental Status: Alert, Normal Affect - Patient Data Lab Results Last 24 hrs: Laboratory Results - last 24 hr 07/12/21 07/13/21 07/13/21 Range/Units 14:07 05:01 05:01 WBC 7.47 (3.98-10.04) K/mm3 RBC 3.04 L (3.98-5.22) M/mm3 Hgb 8.8 L 8.4 L (11.2-15.7) gm/dl Hct 27.0 L (34.1-44.9) % MCV 88.8 (79.4-94.8) fl MCH 27.6 (25.6-32.2) pg MCHC 31.1 L (32.2-35.5) g/dl RDW Std Deviation 55.2 H (36.4-46.3) fL Plt Count 217 (182-369) K/mm3 MPV 9.8 (9.4-12.3) fl Neut % (Auto) 85.8 H (34.0-71.1) % Lymph % (Auto) 2.9 L (19.3-51.7) % [place] % (Auto) 1.5 L (4.7-12.5) % Eos % (Auto) 7.1 H (0.7-5.8) Baso % (Auto) 0.0 L (0.1-1.2) % Neut # (Auto) 6.41 H (1.56-6.13) K/mm3 Lymph # (Auto) 0.22 L (1.18-3.74) K/mm3 [place] # (Auto) 0.11 L (0.24-0.36) K/mm3 Eos # (Auto) 0.53 H (0.04-0.36) K/mm3 Baso # (Auto) 0.00 L (0.01-0.08) K/mm3 Manual Slide Review Abnormal smear Sodium 135 L (136-145) mEq/L Potassium 2.4 L* (3.5-5.1) mEq/L Chloride 102 (98-107) mEq/L Carbon Dioxide 24 (21-32) mEq/L Anion Gap 11.4 (5-15) BUN 31 H (7-18) mg/dL Creatinine 0.9 (0.55-1.02) mg/dL Est Cr Clr Drug Dosing 49.51 mL/min Estimated GFR (MDRD) > 60 (>60) mL/min BUN/Creatinine Ratio 34.4 H (14-18) Glucose 81 (70-99) mg/dL Calcium 8.4 L (8.5-10.1) mg/dL Magnesium 1.9 (1.8-2.4) mg/dL Total Bilirubin 0.7 (0.2-1.0) mg/dL AST 26 (15-37) U/L ALT 32 (14-59) U/L Alkaline Phosphatase 52 (46-116) U/L Total Protein 4.6 L (6.4-8.2) g/dl Albumin 1.6 L (3.4-5.0) g/dl Globulin 3.0 gm/dL Albumin/Globulin Ratio 0.5 L (1-2) Result Diagrams: 07/13/21 05:01 07/13/21 05:01 Isac Results Last 24 hrs: Microbiology 07/11/21 07:00 Blood Culture - Preliminary Blood - Venous - Lab Draw 07/11/21 06:58 Blood Culture - Preliminary Blood - Venous Sepsis Event Note - Evaluation Sepsis Screening Result: Sepsis Risk - Focused Exam Vital Signs: Vital Signs Temp Resp BP Pulse Ox 07/13/21 07:00 22 H 102/51 L 94 L 07/13/21 06:01 23 H 93 L 07/13/21 06:00 24 H 108/56 L 94 L 07/13/21 05:00 22 H 105/58 L 93 L 07/13/21 04:00 36.4 C 20 97/60 94 L 07/13/21 03:00 17 109/53 L 94 L 07/13/21 02:00 14 97/52 L 94 L 07/13/21 01:00 24 H 99/52 L 94 L 07/13/21 00:01 18 94 L 07/13/21 00:00 36.4 C 17 100/49 L 93 L 07/12/21 23:00 22 H 102/50 L 94 L 07/12/21 22:00 22 H 90/52 L 94 L 07/12/21 21:01 15 93 L 07/12/21 21:00 18 105/54 L 93 L - Problem List & Annotations (1) Persistent atrial fibrillation with RVR SNOMED Code(s): 032101519, 286899807226714 Code(s): I48.19 - OTHER PERSISTENT ATRIAL FIBRILLATION Status: Acute Priority: High Current Visit: Yes (2) Congestive heart failure SNOMED Code(s): 46858337 Code(s): I50.9 - HEART FAILURE, UNSPECIFIED Status: Acute Priority: High Current Visit: Yes Qualifiers: Heart failure type: unspecified Heart failure chronicity: acute Qualified Code(s): I50.9 - Heart failure, unspecified Annotation/Comment:: Atrial fibrillation with RVR (3) Anemia SNOMED Code(s): 146257091 Code(s): D64.9 - ANEMIA, UNSPECIFIED Status: Acute Priority: High Current Visit: Yes Qualifiers: Anemia type: other cause Other causes of anemia: acute posthemorrhagic Qualified Code(s): D62 - Acute posthemorrhagic anemia (4) Gross hematuria SNOMED Code(s): 094397756 Code(s): R31.0 - GROSS HEMATURIA Status: Acute Priority: High Current Visit: Yes (5) H/O primary malignant neoplasm of urinary bladder SNOMED Code(s): 869309968 Code(s): Z85.51 - PERSONAL HISTORY OF MALIGNANT NEOPLASM OF BLADDER Status: Chronic Priority: High Current Visit: Yes (6) Leukocytosis SNOMED Code(s): 929523585, 089747255 Code(s): D72.829 - ELEVATED WHITE BLOOD CELL COUNT, UNSPECIFIED Status: Resolved Priority: High Current Visit: Yes Qualifiers: Leukocytosis type: bandemia Qualified Code(s): D72.825 - Bandemia (7) Metastatic cancer to lung SNOMED Code(s): 66198044 Code(s): C78.00 - SECONDARY MALIGNANT NEOPLASM OF UNSPECIFIED LUNG Status: Chronic Priority: High Current Visit: Yes Qualifiers: Laterality: right Qualified Code(s): C78.01 - Secondary malignant neoplasm of right lung - Problem List Review Problem List Initiated/Reviewed/Updated: Yes - My Orders Last 24 Hours: My Active Orders 07/12/21 09:00 Digoxin [Lanoxin] 125 mcg IVPUSH DAILY Magnesium Oxide 400 mg PO DAILY cefTRIAXone [Rocephin] 2 gm Sodium Chloride 0.9% [Normal Saline AdvBag] 100 ml IV Q24H 07/12/21 12:00 Morphine [MS Contin] 15 mg PO DAILY@1200 07/12/21 16:54 Renew/Continue Central Line Access [OM.PC] Routine 07/12/21 17:09 Renew/Continue Urinary Catheter [OM.PC] Routine - Plan Plan:: The patient is a 71-year-old lady who has been admitted as an inpatient to the intensive care unit. She is currently on a Cardizem drip and has received 2 units of blood. I have ordered an H&H to be completed at 5 PM to recheck her hemoglobin and determine if she needs further transfusions. The patient will be kept on telemetry due to the RVR and she will be started on digitalis starting tomorrow. The patient has had willie blood hematuria and therefore will not receive pharmacological DVT prophylaxis. I have also placed the patient on ceftriaxone until pneumonia is excluded. The patient does have heart failure likely related to her atrial fibrillation and she will need to have input and output recorded. The patient has needed gentle fluid resuscitation with the use of normal saline at 75 mL/h. This is balanced by use of Lasix to help reduce her heart load. She does have marked elevation of her BNP around 22,000. Repeat laboratory studies have been ordered for the morning. It is unsure if this is new for her or not. She previously had been on Eliquis and diltiazem and this may be a recurrence of atrial fibrillation. I had a discussion with the patient and the patient's , Gerry, and discussed resuscitation status with them. For now the patient is in a DO NOT RESUSCITATE DO NOT INTUBATE category but they may require this to be changed to full code. I also explained to the patient and the patient's the stroke risk by pharmacological DVT prophylaxis being contraindicated. Regardless, the patient's overall prognosis is poor at this time. 07/12/2021 The patient for now is in a DO NOT INTUBATE DO NOT RESUSCITATE category. The patient's A. fib remains in RVR and the digitalis level came back at 1.1. The patient will have daily digoxin to help her rate control. She will remain in the intensive care unit on telemetry. She is on Cardizem drip and this will be continued. Her hemoglobin in 12 hours is gone from 10.0 g/dL to 8.7 g/dL in a 12-hour. The patient still has willie hematuria. The patient has had an increase in her D-dimer however, she cannot be anticoagulated pharmacologically due to her acute hemorrhage. Will consider blood transfusion after discussion with the patient's next of kin and power of trade mark attorney. I am afraid that this may be futile. Regardless, I have ordered repeat laboratory studies for the morning. The patient will have her diet as tolerated. The patient's overall prognosis at this point is poor. 07/13/2021 The patient is a 71-year-old lady who will remain as an inpatient in the intensive care unit. The patient is critically ill. She is still having willie hematuria and her hemoglobin has been stable. Repeat laboratory studies have been ordered for the morning. I have ordered the Cardizem drip to be titrated down as the patient has been tolerating the digoxin. I will continue the patient's digitalis at 125 mcg daily. I have also replaced the patient's potass ium. We will continue to monitor electrolytes. I did have a discussion with the patient's and he had wanted to have hospice consult and the patient has wanted to return home and not undergo any further treatment. The patient will continue in a DO NOT INTUBATE/DO NOT RESUSCITATE category. Also the patient cannot be pharmacologically anticoagulated due to hemorrhage from her bladder from the cancer. The patient's CBC and hemoglobin will be monitored and will consider blood transfusion if her hemoglobin drops below 7.0 g/dL however, this may be refused. Overall the patient's prognosis is poor.
[2021-07-13] MEDS: Nystatin Susp 100,000 Unit/ML 5 ML UD Cup PO SCH ×3 (08:04→20:50)
[2021-07-13] MEDS: Magnesium Oxide 400 MG Tab PO SCH (08:04)
[2021-07-13] MEDS: Isosorbide Mononitrate 60 MG Tab.ER PO SCH ×2 (08:04→20:50)
[2021-07-13] MEDS: Metoprolol Succinate 25 MG Tab.ER PO SCH ×2 (08:04→20:50)
[2021-07-13] MEDS: cefTRIAXone 2 GM in Sodium Chloride 0.9% 100 ML IV SCH (08:05)
[2021-07-13] MEDS: Digoxin 500 MCG/2 ML Amp IVPUSH SCH (08:05)
[2021-07-13] MEDS: Furosemide 40 MG/4 ML VIAL IVPUSH SCH (08:05)
[2021-07-13] MEDS: LORazepam 1 MG Tab PO PRN ×2 (08:32→22:37)
[2021-07-13] MEDS: Sodium Chloride 0.9% 1,000 ML IV SCH ×2 (09:55→23:08)
[2021-07-14] MEDS: Morphine 15 MG Tab.ER PO SCH ×3 (04:35→20:58)
[2021-07-14] MEDS ORDERED: Potassium Chloride 20 MEQ Tab.ER PO ONE ×2 (08:00→21:00)
[2021-07-14] MEDS: Furosemide 40 MG/4 ML VIAL IVPUSH SCH (08:00)
[2021-07-14] MEDS: Isosorbide Mononitrate 60 MG Tab.ER PO SCH ×2 (08:00→20:59)
[2021-07-14] MEDS: Magnesium Oxide 400 MG Tab PO SCH (08:00)
[2021-07-14] MEDS: Metoprolol Succinate 25 MG Tab.ER PO SCH ×2 (08:00→20:58)
[2021-07-14] MEDS: Nystatin Susp 100,000 Unit/ML 5 ML UD Cup PO SCH ×3 (08:01→21:01)
[2021-07-14] MEDS: Digoxin 500 MCG/2 ML Amp IVPUSH SCH (08:01)
--- NOTE | 2021-07-14 08:10 | PCM.PN ---
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 Subjective Update: Patient is a 71-year-old lady who had presented to the hospital on July 11, 2020 when due to atrial fibrillation with rapid ventricular rate. The patient was admitted to the ICU while on Cardizem drip and she has been started on IV digoxin. She was also noted to be in heart failure with a BNP of around 20,000. 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 The patient has had willie hematuria. This morning patient was resting comfortably in bed. She denies any pain. She has no significant complaints at this time. Functional Status: Reports: Pain Controlled - Review of Systems General: Reports: Fatigue HEENT: Reports: No Symptoms Pulmonary: Reports: No Symptoms Cardiovascular: Reports: No Symptoms Gastrointestinal: Reports: No Symptoms Musculoskeletal: Reports: No Symptoms - Patient Data Vitals - Most Recent: Last Vital Signs Temp 98.1 F 07/14/21 04:00 Pulse 90 07/14/21 08:01 Resp 25 H 07/14/21 06:00 BP 122/57 L 07/14/21 08:00 Pulse Ox 95 07/14/21 06:00 Weight - Most Recent: 155 lb I&O - Last 24 Hours: Intake & Output 07/13/21 07/14/21 07/14/21 22:59 06:59 14:59 Intake Total 2000 952 Output Total 1000 375 Balance 1000 577 Lab Results Last 24 Hours: Laboratory Results - last 24 hr 07/14/21 07/14/21 Range/Units 05:08 05:08 WBC 8.51 (3.98-10.04) K/mm3 RBC 3.05 L (3.98-5.22) M/mm3 Hgb 8.4 L (11.2-15.7) gm/dl Hct 27.8 L (34.1-44.9) % MCV 91.1 (79.4-94.8) fl MCH 27.5 (25.6-32.2) pg MCHC 30.2 L (32.2-35.5) g/dl RDW Std Deviation 56.4 H (36.4-46.3) fL Plt Count 177 L (182-369) K/mm3 MPV 9.5 (9.4-12.3) fl Neut % (Auto) 89.4 H (34.0-71.1) % Lymph % (Auto) 3.3 L (19.3-51.7) % [place] % (Auto) 3.2 L (4.7-12.5) % Eos % (Auto) 3.1 (0.7-5.8) Baso % (Auto) 0.1 (0.1-1.2) % Neut # (Auto) 7.61 H (1.56-6.13) K/mm3 Lymph # (Auto) 0.28 L (1.18-3.74) K/mm3 [place] # (Auto) 0.27 (0.24-0.36) K/mm3 Eos # (Auto) 0.26 (0.04-0.36) K/mm3 Baso # (Auto) 0.01 (0.01-0.08) K/mm3 Manual Slide Review Abnormal smear Sodium 136 (136-145) mEq/L Potassium 2.5 L (3.5-5.1) mEq/L Chloride 103 (98-107) mEq/L Carbon Dioxide 25 (21-32) mEq/L Anion Gap 10.5 (5-15) BUN 23 H (7-18) mg/dL Creatinine 0.8 (0.55-1.02) mg/dL Est Cr Clr Drug Dosing 55.70 mL/min Estimated GFR (MDRD) > 60 (>60) mL/min BUN/Creatinine Ratio 28.8 H (14-18) Glucose 83 (70-99) mg/dL Calcium 8.4 L (8.5-10.1) mg/dL Total Bilirubin 0.8 (0.2-1.0) mg/dL AST 40 H (15-37) U/L ALT 69 H (14-59) U/L Alkaline Phosphatase 60 (46-116) U/L Total Protein 4.4 L (6.4-8.2) g/dl Albumin 1.5 L (3.4-5.0) g/dl Globulin 2.9 gm/dL Albumin/Globulin Ratio 0.5 L (1-2) Digoxin 1.0 (0.9-2.0) ng/mL Med Orders - Current: Current Medications Digoxin (Digoxin 500 Mcg/2 Ml Amp) 125 mcg IVPUSH DAILY [facility] Last Admin: 07/14/21 08:01 Dose: 125 mcg Documented by: Furosemide (Furosemide 40 Mg/4 Ml Vial) 40 mg IVPUSH DAILY [facility] Last Admin: 07/14/21 08:00 Dose: 40 mg Documented by: Sodium Chloride (Normal Saline) 1,000 mls @ 75 mls/hr IV ASDIRECTED [facility] Last Admin: 07/13/21 23:08 Dose: 75 mls/hr Documented by: Diltiazem HCl 100 mg/ Sodium (Chloride) 100 mls @ 10 mls/hr IV TITRATE [facility]; Protocol Last Titration: 07/13/21 12:00 Dose: 0 mg/hr, 0 mls/hr Documented by: Ceftriaxone Sodium 2 gm/ (Sodium Chloride) 100 mls @ 200 mls/hr IV Q24H [facility] Last Admin: 07/13/21 08:05 Dose: 200 mls/hr Documented by: Potassium Chloride 10 meq/ (Premix) 100 mls @ 100 mls/hr IV Q1H [facility] Stop: 07/14/21 12:29 Isosorbide Mononitrate (Isosorbide Mononitrate 60 Mg Tab.Er) 60 mg PO BID [facility] Last Admin: 07/14/21 08:00 Dose: 60 mg Documented by: Lorazepam (Lorazepam 1 Mg Tab) 1 mg PO TID PRN PRN Reason: Anxiety Last Admin: 07/13/21 22:37 Dose: 1 mg Documented by: Magnesium Oxide (Magnesium Oxide 400 Mg Tab) 400 mg PO DAILY [facility] Last Admin: 07/14/21 08:00 Dose: 400 mg Documented by: Metoprolol Succinate (Metoprolol Succinate 25 Mg Tab.Er) 75 mg PO BID [facility] Last Admin: 07/14/21 08:00 Dose: 75 mg Documented by: Morphine Sulfate (Morphine 15 Mg Tab.Er) 15 mg PO DAILY@1200 [facility] Last Admin: 07/13/21 15:49 Dose: 15 mg Documented by: Morphine Sulfate (Morphine 15 Mg Tab.Er) 30 mg PO BID@0400,2000 [facility] Last Admin: 07/14/21 04:35 Dose: 30 mg Documented by: Nystatin (Nystatin Susp 100,000 Unit/Ml 5 Ml Ud Cup) 5 ml PO TID [facility] Last Admin: 07/14/21 08:01 Dose: 5 ml Documented by: Ondansetron HCl (Ondansetron 4 Mg Tab.Dis) 8 mg PO TID PRN PRN Reason: Nausea Oxycodone/Acetaminophen (Acetaminophen/Oxycodone 325-5 Mg Tab) 1 tab PO Q6H PRN PRN Reason: Pain (severe 7-10) Prochlorperazine Maleate (Prochlorperazine 5 Mg Tab) 10 mg PO QID PRN PRN Reason: Vomiting Discontinued Medications Digoxin (Digoxin 500 Mcg/2 Ml Amp) 250 mcg IVPUSH ONETIME ONE Stop: 07/11/21 10:16 Last Admin: 07/11/21 10:26 Dose: 250 mcg Documented by: Digoxin (Digoxin 500 Mcg/2 Ml Amp) 125 mcg IVPUSH ONETIME ONE Stop: 07/11/21 12:31 Last Admin: 07/11/21 18:04 Dose: Not Given Documented by: Digoxin (Digoxin 500 Mcg/2 Ml Amp) 125 mcg IVPUSH ONETIME ONE Stop: 07/11/21 14:31 Last Admin: 07/11/21 14:32 Dose: 125 mcg Documented by: Digoxin (Digoxin 500 Mcg/2 Ml Amp) 125 mcg IVPUSH ONETIME ONE Stop: 07/11/21 18:31 Last Admin: 07/11/21 18:28 Dose: 125 mcg Documented by: Diltiazem HCl (Diltiazem 50 Mg/10 Ml Sdv) 5 mg IVPUSH ONETIME ONE Stop: 07/11/21 07:21 Last Admin: 07/11/21 07:37 Dose: 5 mg Documented by: Diltiazem HCl (Diltiazem 50 Mg/10 Ml Sdv) 10 mg IVPUSH ONETIME ONE Stop: 07/11/21 08:43 Last Admin: 07/11/21 08:49 Dose: 10 mg Documented by: Diltiazem HCl (Diltiazem 50 Mg/10 Ml Sdv) 10 mg IVPUSH ONETIME ONE Stop: 07/11/21 09:37 Last Admin: 07/11/21 09:53 Dose: 10 mg Documented by: Diltiazem HCl (Diltiazem 50 Mg/10 Ml Sdv) 10 mg IVPUSH ONETIME ONE Stop: 07/11/21 09:54 Last Admin: 07/11/21 10:44 Dose: Not Given Documented by: Furosemide (Furosemide 40 Mg/4 Ml Vial) 40 mg IVPUSH NOW ONE Stop: 07/11/21 14:01 Last Admin: 07/11/21 12:34 Dose: 40 mg Documented by: Furosemide (Furosemide 40 Mg/4 Ml Vial) 40 mg IVPUSH NOW ONE Stop: 07/11/21 18:31 Last Admin: 07/11/21 18:28 Dose: 40 mg Documented by: Cefepime HCl 2 gm/ Sodium (Chloride) 50 mls @ 100 mls/hr IV ONETIME ONE Stop: 07/11/21 07:43 Last Admin: 07/11/21 07:32 Dose: 100 mls/hr Documented by: Diltiazem HCl 100 mg/ Sodium (Chloride) 100 mls @ 10 mls/hr IV TITRATE [facility] Last Infusion: 07/11/21 18:40 Dose: 10 mg/hr, 10 mls/hr Documented by: Potassium Chloride 10 meq/ (Premix) 100 mls @ 100 mls/hr IV Q1H [facility] Stop: 07/13/21 09:29 Last Admin: 07/13/21 07:43 Dose: Not Given Documented by: Non-Formulary Medication (Olanzapine) 10 mg PO BEDTIME [facility] Last Admin: 07/11/21 22:00 Dose: Not Given Documented by: Potassium Chloride (Potassium Chloride 20 Meq Tab.Er) 40 meq PO ONETIME ONE Stop: 07/13/21 07:16 Last Admin: 07/13/21 08:04 Dose: 40 meq Documented by: Potassium Chloride (Potassium Chloride 20 Meq Tab.Er) 40 meq PO ONETIME ONE Stop: 07/14/21 08:01 Last Admin: 07/14/21 07:59 Dose: 40 meq Documented by: - Exam Quality Assessment: Supplemental Oxygen Urinary Catheter Total Time: 2Days 11Hours General: Alert, Oriented HEENT: Pupils Equal, Mucous Membr. Moist/[place] Neck: Supple Lungs: Normal Respiratory Effort, Rales (Bibasilar) Cardiovascular: Irregular Rhythm (Regular rate and rhythm) GI/Abdominal Exam: Normal Bowel Sounds, Soft, Non-Tender, No Distention Extremities: Pedal Edema (3+ up to knees) Skin: Warm, Dry, Intact Neurological: No New Focal Deficit Psy/Mental Status: Alert, Normal Affect, Normal Mood - Patient Data Lab Results Last 24 hrs: Laboratory Results - last 24 hr 07/14/21 07/14/21 Range/Units 05:08 05:08 WBC 8.51 (3.98-10.04) K/mm3 RBC 3.05 L (3.98-5.22) M/mm3 Hgb 8.4 L (11.2-15.7) gm/dl Hct 27.8 L (34.1-44.9) % MCV 91.1 (79.4-94.8) fl MCH 27.5 (25.6-32.2) pg MCHC 30.2 L (32.2-35.5) g/dl RDW Std Deviation 56.4 H (36.4-46.3) fL Plt Count 177 L (182-369) K/mm3 MPV 9.5 (9.4-12.3) fl Neut % (Auto) 89.4 H (34.0-71.1) % Lymph % (Auto) 3.3 L (19.3-51.7) % [place] % (Auto) 3.2 L (4.7-12.5) % Eos % (Auto) 3.1 (0.7-5.8) Baso % (Auto) 0.1 (0.1-1.2) % Neut # (Auto) 7.61 H (1.56-6.13) K/mm3 Lymph # (Auto) 0.28 L (1.18-3.74) K/mm3 [place] # (Auto) 0.27 (0.24-0.36) K/mm3 Eos # (Auto) 0.26 (0.04-0.36) K/mm3 Baso # (Auto) 0.01 (0.01-0.08) K/mm3 Manual Slide Review Abnormal smear Sodium 136 (136-145) mEq/L Potassium 2.5 L (3.5-5.1) mEq/L Chloride 103 (98-107) mEq/L Carbon Dioxide 25 (21-32) mEq/L Anion Gap 10.5 (5-15) BUN 23 H (7-18) mg/dL Creatinine 0.8 (0.55-1.02) mg/dL Est Cr Clr Drug Dosing 55.70 mL/min Estimated GFR (MDRD) > 60 (>60) mL/min BUN/Creatinine Ratio 28.8 H (14-18) Glucose 83 (70-99) mg/dL Calcium 8.4 L (8.5-10.1) mg/dL Total Bilirubin 0.8 (0.2-1.0) mg/dL AST 40 H (15-37) U/L ALT 69 H (14-59) U/L Alkaline Phosphatase 60 (46-116) U/L Total Protein 4.4 L (6.4-8.2) g/dl Albumin 1.5 L (3.4-5.0) g/dl Globulin 2.9 gm/dL Albumin/Globulin Ratio 0.5 L (1-2) Digoxin 1.0 (0.9-2.0) ng/mL Result Diagrams: 07/14/21 05:08 07/14/21 05:08 Sepsis Event Note - Evaluation Sepsis Screening Result: Sepsis Risk - Focused Exam Vital Signs: Vital Signs Temp Pulse Resp BP BP Pulse Ox 07/14/21 08:01 90 07/14/21 08:00 90 122/57 L 07/14/21 06:00 25 H 95 07/14/21 05:00 17 96 07/14/21 04:01 21 H 96 07/14/21 04:00 98.1 F 24 H 105/59 L 95 07/14/21 03:00 29 H 96 07/14/21 02:00 29 H 97 07/14/21 01:00 14 96 07/14/21 00:00 97.8 F 14 107/56 L 6 L 07/13/21 23:00 21 H 96 07/13/21 22:00 19 96 07/13/21 21:00 95 07/13/21 20:50 105 H 104/58 L - Problem List & Annotations (1) Hypokalemia SNOMED Code(s): 75948033 Code(s): E87.6 - HYPOKALEMIA Status: Acute Current Visit: Yes (2) Anemia SNOMED Code(s): 495833307 Code(s): D64.9 - ANEMIA, UNSPECIFIED Status: Acute Priority: High Current Visit: Yes Qualifiers: Anemia type: other cause Other causes of anemia: acute posthemorrhagic Qualified Code(s): D62 - Acute posthemorrhagic anemia (3) Congestive heart failure SNOMED Code(s): 06921272 Code(s): I50.9 - HEART FAILURE, UNSPECIFIED Status: Acute Priority: High Current Visit: Yes Qualifiers: Heart failure type: unspecified Heart failure chronicity: acute Qualified Code(s): I50.9 - Heart failure, unspecified Annotation/Comment:: Atrial fibrillation with RVR (4) Gross hematuria SNOMED Code(s): 729514941 Code(s): R31.0 - GROSS HEMATURIA Status: Acute Priority: High Current Visit: Yes (5) Persistent atrial fibrillation with RVR SNOMED Code(s): 813388117, 488206471895322 Code(s): I48.19 - OTHER PERSISTENT ATRIAL FIBRILLATION Status: Acute Priority: High Current Visit: Yes (6) H/O primary malignant neoplasm of urinary bladder SNOMED Code(s): 814259118 Code(s): Z85.51 - PERSONAL HISTORY OF MALIGNANT NEOPLASM OF BLADDER Status: Chronic Priority: High Current Visit: Yes (7) Metastatic cancer to lung SNOMED Code(s): 88639857 Code(s): C78.00 - SECONDARY MALIGNANT NEOPLASM OF UNSPECIFIED LUNG Status: Chronic Priority: High Current Visit: Yes Qualifiers: Laterality: right Qualified Code(s): C78.01 - Secondary malignant neoplasm of right lung - Problem List Review Problem List Initiated/Reviewed/Updated: Yes - Plan Plan:: The patient is a 71-year-old lady who has been admitted as an inpatient to the intensive care unit. She is currently on a Cardizem drip and has received 2 units of blood. I have ordered an H&H to be completed at 5 PM to recheck her hemoglobin and determine if she needs further transfusions. The patient will be kept on telemetry due to the RVR and she will be started on digitalis starting tomorrow. The patient has had willie blood hematuria and therefore will not receive pharmacological DVT prophylaxis. I have also placed the patient on ceftriaxone until pneumonia is excluded. The patient does have heart failure likely related to her atrial fibrillation and she will need to have input and output recorded. The patient has needed gentle fluid resuscitation with the use of normal saline at 75 mL/h. This is balanced by use of Lasix to help reduce her heart load. She does have marked elevation of her BNP around 22,000. Repeat laboratory studies have been ordered for the morning. It is unsure if this is new for her or not. She previously had been on Eliquis and diltiazem and this may be a recurrence of atrial fibrillation. I had a discussion with the patient and the patient's , Gerry, and discussed resuscitation status with them. For now the patient is in a DO NOT RESUSCITATE DO NOT INTUBATE category but they may require this to be changed to full code. I also explained to the patient and the patient's the stroke risk by pharmacological DVT prophylaxis being contraindicated. Regardless, the patient's overall prognosis is poor at this time. 07/12/2021 The patient for now is in a DO NOT INTUBATE DO NOT RESUSCITATE category. The patient's A. fib remains in RVR and the digitalis level came back at 1.1. The patient will have daily digoxin to help her rate control. She will remain in the intensive care unit on telemetry. She is on Cardizem drip and this will be continued. Her hemoglobin in 12 hours is gone from 10.0 g/dL to 8.7 g/dL in a 12-hour. The patient still has willie hematuria. The patient has had an inc rease in her D-dimer however, she cannot be anticoagulated pharmacologically due to her acute hemorrhage. Will consider blood transfusion after discussion with the patient's next of kin and power of deputy county attorney. I am afraid that this may be futile. Regardless, I have ordered repeat laboratory studies for the morning. The patient will have her diet as tolerated. The patient's overall prognosis at this point is poor. 07/13/2021 The patient is a 71-year-old lady who will remain as an inpatient in the intensive care unit. The patient is critically ill. She is still having willie hematuria and her hemoglobin has been stable. Repeat laboratory studies have been ordered for the morning. I have ordered the Cardizem drip to be titrated down as the patient has been tolerating the digoxin. I will continue the patient's digitalis at 125 mcg daily. I have also replaced the patient's potassium. We will continue to monitor electrolytes. I did have a discussion with the patient's and he had wanted to have hospice consult and the patient has wanted to return home and not undergo any further treatment. The patient will continue in a DO NOT INTUBATE/DO NOT RESUSCITATE category. Also the patient cannot be pharmacologically anticoagulated due to hemorrhage from her bladder from the cancer. The patient's CBC and hemoglobin will be monitored and will consider blood transfusion if her hemoglobin drops below 7.0 g/dL however, this may be refused. Overall the patient's prognosis is poor. 07/14/2021 71-year-old female who was admitted to the ICU on a Cardizem drip for A. fib RVR. History is complicated by metastatic bladder cancer and hematuria. Patient cannot be on an anticoagulant secondary to gross, severe, hematuria that did require 2 units packed red blood cells on first day of hospitalization. She continues with normal saline at 75 mL/h and Lasix to both irrigate her bladder and reduce her heart load. She will have the normal saline stopped today since her hemoglobin has been stable and she has had less bleeding and clots from her bladder. VTE prophylaxis will have to be done with SCDs. Unfortunately, we will not be able to anticoagulate to prevent a CVA due to her severe bleeding requiring transfusion. She does have a significant hypokalemia over the last 2 days and will require better and more aggressive treatment. Hospice was consulted. Cardizem was stopped and switched to digoxin presumably because of blood pressure issues. Plan A. fib with RVR * Continue digoxin 0.125 mg daily. Switch to p.o. from IV. * Metoprolol succinate 75 mg daily. * Home medications included Cardizem, which has been switched digoxin * Follow digoxin level * Correct hypokalemia * Echocardiogram Congestive heart failure * Likely exacerbated from A. fib RVR * Continue diuresis * Stop IV fluids and any IV medication we can switch over to p.o. * Echocardiogram this morning * 1500 mL fluid restriction Metastatic bladder cancer to the lung Possible pneumonia versus CHF * Chest x-ray suggestive of congestive heart failure and right pleural effusion. * She initially presented with a white count of 22,000 that is now down to 8000 after the first day. * Currently on ceftriaxone * Repeat chest x-ray this morning * Patient has elected hospice care * Family still wants active treatment except resuscitation or intubation Gross hematuria with anemia * Hematuria has essentially stopped except for occasional clots. * Hemoglobin is stable at 8.4 * Received 2 units packed red blood cells on July 11 * Continue to monitor hemoglobin every morning Hypokalemia * Severe hypokalemia with potassium of 2.5 * Receiving 40 mg p.o. this morning * Will add another 40 mg IV riders then DC IV fluid. VTE prophylaxis with SCDs CODE STATUS: DNR/DNI Greater than 96 hours secondary to complexity of illness, slow diuresis, hypokalemia.
[2021-07-14] MEDS: cefTRIAXone 2 GM in Sodium Chloride 0.9% 100 ML IV SCH (08:25)
[2021-07-14] MEDS: Potassium Chloride 10 MEQ in Premix Bag 1 BAG IV SCH ×4 (08:42→11:52)
--- NOTE | 2021-07-14 11:27 | CR ---
Chest: Portable view of the chest was obtained. Comparison: Prior chest x-ray of 07/11/21. Probable right-sided pleural effusion is noted. Hazy increased density is seen within the right lung. Slight atelectasis is seen within the left lung base. Right-sided infusion catheter is seen. Heart is enlarged. Pulmonary vessels are slightly increased. Impression: 1. Atelectasis within the left lung base. 2. Cardiomegaly and right-sided pleural effusion. 3. Continuing increased density noted within the right chest which may represent asymmetric pulmonary vascular congestion, atelectasis or continued pneumonia. When allowing for slight differences in technique, no definite change is seen from previous exam. Diagnostic code #3
[2021-07-14] MEDS ORDERED: Diltiazem IR 30 MG Tab PO ONE (12:37)
[2021-07-14] MEDS: Simethicone 80 MG Tab.Chew PO PRN (13:28)
[2021-07-14] MEDS: LORazepam 1 MG Tab PO PRN (13:28)
[2021-07-14] MEDS: Diltiazem IR 30 MG Tab PO SCH (18:26)
[2021-07-15] MEDS: Diltiazem IR 30 MG Tab PO SCH ×2 (00:17→06:05)
[2021-07-15] MEDS: Morphine 15 MG Tab.ER PO SCH ×3 (06:04→20:22)
[2021-07-15] MEDS: Isosorbide Mononitrate 60 MG Tab.ER PO SCH ×2 (08:04→20:22)
[2021-07-15] MEDS: Metoprolol Succinate 25 MG Tab.ER PO SCH (08:05)
[2021-07-15] MEDS: Magnesium Oxide 400 MG Tab PO SCH (08:05)
[2021-07-15] MEDS: Nystatin Susp 100,000 Unit/ML 5 ML UD Cup PO SCH ×3 (08:06→20:30)
[2021-07-15] MEDS: cefTRIAXone 2 GM in Sodium Chloride 0.9% 100 ML IV SCH (08:07)
[2021-07-15] MEDS: Furosemide 40 MG/4 ML VIAL IVPUSH SCH (08:07)
[2021-07-15] MEDS ORDERED: Diltiazem IR 30 MG Tab PO ONE (08:25)
[2021-07-15] MEDS ORDERED: Iopamidol 755 Mg/ML 100 ML Bottle IVPUSH ONE (08:42)
[2021-07-15] MEDS ORDERED: Sodium Chloride 0.9% 10 ML Syringe FLUSH ONE (08:42)
[2021-07-15] MEDS ORDERED: Sodium Chloride 0.9% 100 ML IV SCH (08:45)
[2021-07-15] MEDS ORDERED: Digoxin 125 MCG Tab PO SCH (09:00)
--- NOTE | 2021-07-15 10:18 | PCM.PN ---
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 Subjective Update: Patient is a 71-year-old lady who had presented to the hospital on July 11, 2020 due to atrial fibrillation with rapid ventricular rate. Patient has no real complaints today. She has been hard to control with her rate requiring restart of her Cardizem. We continue to have to increase dose. D-dimer did come back today significantly elevated at 12.2 and a CTA of the chest and ultrasound of the lower extremities were performed. No signs of DVT or PE found. Functional Status: Reports: Pain Controlled - Review of Systems General: Reports: No Symptoms HEENT: Reports: No Symptoms Pulmonary: Reports: No Symptoms Cardiovascular: Reports: No Symptoms Gastrointestinal: Reports: No Symptoms Musculoskeletal: Reports: No Symptoms - Patient Data Vitals - Most Recent: Last Vital Signs Temp 97.5 F 07/15/21 08:00 Pulse 104 H 07/15/21 08:06 Resp 18 07/15/21 08:00 BP 110/56 L 07/15/21 08:05 Pulse Ox 95 07/15/21 08:05 Weight - Most Recent: 160 lb 6.4 oz I&O - Last 24 Hours: Intake & Output 07/14/21 07/15/21 07/15/21 22:59 06:59 14:59 Intake Total 875 150 Output Total 625 315 120 Balance 250 -165 -120 Lab Results Last 24 Hours: Laboratory Results - last 24 hr 07/14/21 07/15/21 07/15/21 Range/Units 05:08 05:25 05:25 WBC 11.34 H (3.98-10.04) K/mm3 RBC 3.15 L (3.98-5.22) M/mm3 Hgb 8.8 L (11.2-15.7) gm/dl Hct 28.9 L (34.1-44.9) % MCV 91.7 (79.4-94.8) fl MCH 27.9 (25.6-32.2) pg MCHC 30.4 L (32.2-35.5) g/dl RDW Std Deviation 56.8 H (36.4-46.3) fL Plt Count 134 L (182-369) K/mm3 MPV 9.2 L (9.4-12.3) fl Neut % (Auto) 91.0 H (34.0-71.1) % Lymph % (Auto) 3.3 L (19.3-51.7) % [place] % (Auto) 3.2 L (4.7-12.5) % Eos % (Auto) 1.9 (0.7-5.8) Baso % (Auto) 0.1 (0.1-1.2) % Neut # (Auto) 10.32 H (1.56-6.13) K/mm3 Lymph # (Auto) 0.37 L (1.18-3.74) K/mm3 [place] # (Auto) 0.36 (0.24-0.36) K/mm3 Eos # (Auto) 0.22 (0.04-0.36) K/mm3 Baso # (Auto) 0.01 (0.01-0.08) K/mm3 Manual Slide Review Abnormal smear D-Dimer, Quantitative 12.19 H (0.19-0.50) mg/L Sodium (136-145) mEq/L Potassium (3.5-5.1) mEq/L Chloride (98-107) mEq/L Carbon Dioxide (21-32) mEq/L Anion Gap (5-15) BUN (7-18) mg/dL Creatinine (0.55-1.02) mg/dL Est Cr Clr Drug Dosing mL/min Estimated GFR (MDRD) (>60) mL/min BUN/Creatinine Ratio (14-18) Glucose (70-99) mg/dL Calcium (8.5-10.1) mg/dL Phosphorus (2.6-4.7) mg/dL Magnesium (1.8-2.4) mg/dL Total Bilirubin (0.2-1.0) mg/dL AST (15-37) U/L ALT (14-59) U/L Alkaline Phosphatase (46-116) U/L C-Reactive Protein (<1.0) mg/dL Total Protein (6.4-8.2) g/dl Albumin (3.4-5.0) g/dl Globulin gm/dL Albumin/Globulin Ratio (1-2) Procalcitonin 0.32 H ng/mL 07/15/21 Range/Units 05:25 WBC (3.98-10.04) K/mm3 RBC (3.98-5.22) M/mm3 Hgb (11.2-15.7) gm/dl Hct (34.1-44.9) % MCV (79.4-94.8) fl MCH (25.6-32.2) pg MCHC (32.2-35.5) g/dl RDW Std Deviation (36.4-46.3) fL Plt Count (182-369) K/mm3 MPV (9.4-12.3) fl Neut % (Auto) (34.0-71.1) % Lymph % (Auto) (19.3-51.7) % [place] % (Auto) (4.7-12.5) % Eos % (Auto) (0.7-5.8) Baso % (Auto) (0.1-1.2) % Neut # (Auto) (1.56-6.13) K/mm3 Lymph # (Auto) (1.18-3.74) K/mm3 [place] # (Auto) (0.24-0.36) K/mm3 Eos # (Auto) (0.04-0.36) K/mm3 Baso # (Auto) (0.01-0.08) K/mm3 Manual Slide Review D-Dimer, Quantitative (0.19-0.50) mg/L Sodium 139 (136-145) mEq/L Potassium 3.5 (3.5-5.1) mEq/L Chloride 104 (98-107) mEq/L Carbon Dioxide 26 (21-32) mEq/L Anion Gap 12.5 (5-15) BUN 23 H (7-18) mg/dL Creatinine 0.8 (0.55-1.02) mg/dL Est Cr Clr Drug Dosing 55.70 mL/min Estimated GFR (MDRD) > 60 (>60) mL/min BUN/Creatinine Ratio 28.8 H (14-18) Glucose 91 (70-99) mg/dL Calcium 8.5 (8.5-10.1) mg/dL Phosphorus 2.0 L (2.6-4.7) mg/dL Magnesium 1.9 (1.8-2.4) mg/dL Total Bilirubin 1.0 (0.2-1.0) mg/dL AST 67 H (15-37) U/L ALT 112 H (14-59) U/L Alkaline Phosphatase 83 (46-116) U/L C-Reactive Protein 8.7 H* (<1.0) mg/dL Total Protein 4.7 L (6.4-8.2) g/dl Albumin 1.7 L (3.4-5.0) g/dl Globulin 3.0 gm/dL Albumin/Globulin Ratio 0.6 L (1-2) Procalcitonin ng/mL Med Orders - Current: Current Medications Digoxin (Digoxin 125 Mcg Tab) 125 mcg PO DAILY [facility] Last Admin: 07/15/21 08:06 Dose: 125 mcg Documented by: Diltiazem HCl (Diltiazem Ir 30 Mg Tab) 30 mg PO Q6HR [facility] Last Admin: 07/15/21 06:05 Dose: 30 mg Documented by: Furosemide (Furosemide 40 Mg/4 Ml Vial) 40 mg IVPUSH DAILY [facility] Last Admin: 07/15/21 08:07 Dose: 40 mg Documented by: Sodium Chloride (Normal Saline) 1,000 mls @ 75 mls/hr IV ASDIRECTED [facility] Last Admin: 07/13/21 23:08 Dose: 75 mls/hr Documented by: Diltiazem HCl 100 mg/ Sodium (Chloride) 100 mls @ 10 mls/hr IV TITRATE [facility]; Protocol Last Titration: 07/13/21 12:00 Dose: 0 mg/hr, 0 mls/hr Documented by: Ceftriaxone Sodium 2 gm/ (Sodium Chloride) 100 mls @ 200 mls/hr IV Q24H [facility] Last Admin: 07/15/21 08:07 Dose: 200 mls/hr Documented by: Sodium Chloride (Normal Saline) 100 mls @ 60 mls/hr IV ASDIRECTED [facility] Stop: 07/15/21 11:00 Last Admin: 07/15/21 10:02 Dose: 60 mls/hr Documented by: Isosorbide Mononitrate (Isosorbide Mononitrate 60 Mg Tab.Er) 60 mg PO BID [facility] Last Admin: 07/15/21 08:04 Dose: 60 mg Documented by: Lorazepam (Lorazepam 1 Mg Tab) 1 mg PO TID PRN PRN Reason: Anxiety Last Admin: 07/14/21 13:28 Dose: 1 mg Documented by: Magnesium Oxide (Magnesium Oxide 400 Mg Tab) 400 mg PO DAILY [facility] Last Admin: 07/15/21 08:05 Dose: 400 mg Documented by: Metoprolol Succinate (Metoprolol Succinate 25 Mg Tab.Er) 75 mg PO BID [facility] Last Admin: 07/15/21 08:05 Dose: 75 mg Documented by: Morphine Sulfate (Morphine 15 Mg Tab.Er) 15 mg PO DAILY@1200 [facility] Last Admin: 07/14/21 12:23 Dose: 15 mg Documented by: Morphine Sulfate (Morphine 15 Mg Tab.Er) 30 mg PO BID@0400,2000 [facility] Last Admin: 07/15/21 06:04 Dose: 30 mg Documented by: Nystatin (Nystatin Susp 100,000 Unit/Ml 5 Ml Ud Cup) 5 ml PO TID [facility] Last Admin: 07/15/21 08:06 Dose: 5 ml Documented by: Ondansetron HCl (Ondansetron 4 Mg Tab.Dis) 8 mg PO TID PRN PRN Reason: Nausea Oxycodone/Acetaminophen (Acetaminophen/Oxycodone 325-5 Mg Tab) 1 tab PO Q6H PRN PRN Reason: Pain (severe 7-10) Prochlorperazine Maleate (Prochlorperazine 5 Mg Tab) 10 mg PO QID PRN PRN Reason: Vomiting Simethicone (Simethicone 80 Mg Tab.Chew) 80 mg PO Q6H PRN PRN Reason: Gas Last Admin: 07/14/21 13:28 Dose: 80 mg Documented by: Discontinued Medications Digoxin (Digoxin 500 Mcg/2 Ml Amp) 250 mcg IVPUSH ONETIME ONE Stop: 07/11/21 10:16 Last Admin: 07/11/21 10:26 Dose: 250 mcg Documented by: Digoxin (Digoxin 500 Mcg/2 Ml Amp) 125 mcg IVPUSH ONETIME ONE Stop: 07/11/21 12:31 Last Admin: 07/11/21 18:04 Dose: Not Given Documented by: Digoxin (Digoxin 500 Mcg/2 Ml Amp) 125 mcg IVPUSH ONETIME ONE Stop: 07/11/21 14:31 Last Admin: 07/11/21 14:32 Dose: 125 mcg Documented by: Digoxin (Digoxin 500 Mcg/2 Ml Amp) 125 mcg IVPUSH ONETIME ONE Stop: 07/11/21 18:31 Last Admin: 07/11/21 18:28 Dose: 125 mcg Documented by: Digoxin (Digoxin 500 Mcg/2 Ml Amp) 125 mcg IVPUSH DAILY [facility] Last Admin: 07/14/21 08:01 Dose: 125 mcg Documented by: Diltiazem HCl (Diltiazem 50 Mg/10 Ml Sdv) 5 mg IVPUSH ONETIME ONE Stop: 07/11/21 07:21 Last Admin: 07/11/21 07:37 Dose: 5 mg Documented by: Diltiazem HCl (Diltiazem 50 Mg/10 Ml Sdv) 10 mg IVPUSH ONETIME ONE Stop: 07/11/21 08:43 Last Admin: 07/11/21 08:49 Dose: 10 mg Documented by: Diltiazem HCl (Diltiazem 50 Mg/10 Ml Sdv) 10 mg IVPUSH ONETIME ONE Stop: 07/11/21 09:37 Last Admin: 07/11/21 09:53 Dose: 10 mg Documented by: Diltiazem HCl (Diltiazem 50 Mg/10 Ml Sdv) 10 mg IVPUSH ONETIME ONE Stop: 07/11/21 09:54 Last Admin: 07/11/21 10:44 Dose: Not Given Documented by: Diltiazem HCl (Diltiazem Ir 30 Mg Tab) 30 mg PO ONETIME ONE Stop: 07/14/21 12:38 Last Admin: 07/14/21 12:51 Dose: 30 mg Documented by: Diltiazem HCl (Diltiazem Ir 30 Mg Tab) 30 mg PO ONETIME ONE Stop: 07/15/21 08:26 Last Admin: 07/15/21 08:41 Dose: 30 mg Documented by: Furosemide (Furosemide 40 Mg/4 Ml Vial) 40 mg IVPUSH NOW ONE Stop: 07/11/21 14:01 Last Admin: 07/11/21 12:34 Dose: 40 mg Documented by: Furosemide (Furosemide 40 Mg/4 Ml Vial) 40 mg IVPUSH NOW ONE Stop: 07/11/21 18:31 Last Admin: 07/11/21 18:28 Dose: 40 mg Documented by: Cefepime HCl 2 gm/ Sodium (Chloride) 50 mls @ 100 mls/hr IV ONETIME ONE Stop: 07/11/21 07:43 Last Admin: 07/11/21 07:32 Dose: 100 mls/hr Documented by: Diltiazem HCl 100 mg/ Sodium (Chloride) 100 mls @ 10 mls/hr IV TITRATE [facility] Last Infusion: 07/11/21 18:40 Dose: 10 mg/hr, 10 mls/hr Documented by: Potassium Chloride 10 meq/ (Premix) 100 mls @ 100 mls/hr IV Q1H [facility] Stop: 07/13/21 09:29 Last Admin: 07/13/21 07:43 Dose: Not Given Documented by: Potassium Chloride 10 meq/ (Premix) 100 mls @ 100 mls/hr IV Q1H [facility] Stop: 07/14/21 12:29 Last Admin: 07/14/21 11:52 Dose: 100 mls/hr Documented by: Iopamidol (Iopamidol 755 Mg/Ml 100 Ml Bottle) 100 ml IVPUSH ONETIME ONE Stop: 07/15/21 08:43 Last Admin: 07/15/21 10:02 Dose: 100 ml Documented by: Non-Formulary Medication (Olanzapine) 10 mg PO BEDTIME [facility] Last Admin: 07/11/21 22:00 Dose: Not Given Documented by: Potassium Chloride (Potassium Chloride 20 Meq Tab.Er) 40 meq PO ONETIME ONE Stop: 07/13/21 07:16 Last Admin: 07/13/21 08:04 Dose: 40 meq Documented by: Potassium Chloride (Potassium Chloride 20 Meq Tab.Er) 40 meq PO ONETIME ONE Stop: 07/14/21 08:01 Last Admin: 07/14/21 07:59 Dose: 40 meq Documented by: Potassium Chloride (Potassium Chloride 20 Meq Tab.Er) 40 meq PO ONETIME ONE Stop: 07/14/21 21:01 Last Admin: 07/14/21 20:59 Dose: 40 meq Documented by: Sodium Chloride (Sodium Chloride 0.9% 10 Ml Syringe) 10 ml FLUSH ONETIME ONE Stop: 07/15/21 08:43 Last Admin: 07/15/21 10:02 Dose: 10 ml Documented by: - Exam Quality Assessment: Supplemental Oxygen Urinary Catheter Total Time: 3Days 12Hours General: Alert, Oriented HEENT: Pupils Equal Neck: Supple Lungs: Normal Respiratory Effort, Crackles (Bilateral) Cardiovascular: Irregular Rhythm, Tachycardia GI/Abdominal Exam: Normal Bowel Sounds, Soft, Non-Tender, No Distention Extremities: Normal Inspection, Non-Tender, Normal Capillary Refill, Pedal Edema (2+, but difficult to ascertain secondary to SCDs. Edema stops at the knees) Skin: Warm, Dry, Intact Neurological: No New Focal Deficit Psy/Mental Status: Alert, Normal Affect, Normal Mood - Patient Data Lab Results Last 24 hrs: Laboratory Results - last 24 hr 07/14/21 07/15/21 07/15/21 Range/Units 05:08 05:25 05:25 WBC 11.34 H (3.98-10.04) K/mm3 RBC 3.15 L (3.98-5.22) M/mm3 Hgb 8.8 L (11.2-15.7) gm/dl Hct 28.9 L (34.1-44.9) % MCV 91.7 (79.4-94.8) fl MCH 27.9 (25.6-32.2) pg MCHC 30.4 L (32.2-35.5) g/dl RDW Std Deviation 56.8 H (36.4-46.3) fL Plt Count 134 L (182-369) K/mm3 MPV 9.2 L (9.4-12.3) fl Neut % (Auto) 91.0 H (34.0-71.1) % Lymph % (Auto) 3.3 L (19.3-51.7) % [place] % (Auto) 3.2 L (4.7-12.5) % Eos % (Auto) 1.9 (0.7-5.8) Baso % (Auto) 0.1 (0.1-1.2) % Neut # (Auto) 10.32 H (1.56-6.13) K/mm3 Lymph # (Auto) 0.37 L (1.18-3.74) K/mm3 [place] # (Auto) 0.36 (0.24-0.36) K/mm3 Eos # (Auto) 0.22 (0.04-0.36) K/mm3 Baso # (Auto) 0.01 (0.01-0.08) K/mm3 Manual Slide Review Abnormal smear D-Dimer, Quantitative 12.19 H (0.19-0.50) mg/L Sodium (136-145) mEq/L Potassium (3.5-5.1) mEq/L Chloride (98-107) mEq/L Carbon Dioxide (21-32) mEq/L Anion Gap (5-15) BUN (7-18) mg/dL Creatinine (0.55-1.02) mg/dL Est Cr Clr Drug Dosing mL/min Estimated GFR (MDRD) (>60) mL/min BUN/Creatinine Ratio (14-18) Glucose (70-99) mg/dL Calcium (8.5-10.1) mg/dL Phosphorus (2.6-4.7) mg/dL Magnesium (1.8-2.4) mg/dL Total Bilirubin (0.2-1.0) mg/dL AST (15-37) U/L ALT (14-59) U/L Alkaline Phosphatase (46-116) U/L C-Reactive Protein (<1.0) mg/dL Total Protein (6.4-8.2) g/dl Albumin (3.4-5.0) g/dl Globulin gm/dL Albumin/Globulin Ratio (1-2) Procalcitonin 0.32 H ng/mL 07/15/21 Range/Units 05:25 WBC (3.98-10.04) K/mm3 RBC (3.98-5.22) M/mm3 Hgb (11.2-15.7) gm/dl Hct (34.1-44.9) % MCV (79.4-94.8) fl MCH (25.6-32.2) pg MCHC (32.2-35.5) g/dl RDW Std Deviation (36.4-46.3) fL Plt Count (182-369) K/mm3 MPV (9.4-12.3) fl Neut % (Auto) (34.0-71.1) % Lymph % (Auto) (19.3-51.7) % [place] % (Auto) (4.7-12.5) % Eos % (Auto) (0.7-5.8) Baso % (Auto) (0.1-1.2) % Neut # (Auto) (1.56-6.13) K/mm3 Lymph # (Auto) (1.18-3.74) K/mm3 [place] # (Auto) (0.24-0.36) K/mm3 Eos # (Auto) (0.04-0.36) K/mm3 Baso # (Auto) (0.01-0.08) K/mm3 Manual Slide Review D-Dimer, Quantitative (0.19-0.50) mg/L Sodium 139 (136-145) mEq/L Potassium 3.5 (3.5-5.1) mEq/L Chloride 104 (98-107) mEq/L Carbon Dioxide 26 (21-32) mEq/L Anion Gap 12.5 (5-15) BUN 23 H (7-18) mg/dL Creatinine 0.8 (0.55-1.02) mg/dL Est Cr Clr Drug Dosing 55.70 mL/min Estimated GFR (MDRD) > 60 (>60) mL/min BUN/Creatinine Ratio 28.8 H (14-18) Glucose 91 (70-99) mg/dL Calcium 8.5 (8.5-10.1) mg/dL Phosphorus 2.0 L (2.6-4.7) mg/dL Magnesium 1.9 (1.8-2.4) mg/dL Total Bilirubin 1.0 (0.2-1.0) mg/dL AST 67 H (15-37) U/L ALT 112 H (14-59) U/L Alkaline Phosphatase 83 (46-116) U/L C-Reactive Protein 8.7 H* (<1.0) mg/dL Total Protein 4.7 L (6.4-8.2) g/dl Albumin 1.7 L (3.4-5.0) g/dl Globulin 3.0 gm/dL Albumin/Globulin Ratio 0.6 L (1-2) Procalcitonin ng/mL Result Diagrams: 07/15/21 05:25 07/15/21 05:25 Sepsis Event Note - Evaluation Sepsis Screening Result: No Definite Risk - Focused Exam Vital Signs: Vital Signs Temp Pulse Pulse Resp BP BP Pulse Ox 07/15/21 08:06 104 H 07/15/21 08:05 104 H 110/56 L 07/15/21 08:00 97.5 F 103 H 18 110/56 L 97 07/15/21 07:31 16 106/55 L 96 07/15/21 07:30 14 97 07/15/21 07:16 15 118/48 L 97 07/15/21 07:01 13 118/53 L 96 07/15/21 06:31 14 111/51 L 97 07/15/21 06:30 9 L 98 07/15/21 06:16 14 116/46 L 95 07/15/21 06:15 17 97 07/15/21 06:01 19 99/57 L 94 L 07/15/21 06:00 16 95 07/15/21 04:00 98.1 F 20 118/49 L 94 L 07/15/21 00:00 98.1 F 18 114/58 L 96 Pulse Ox 07/15/21 08:06 07/15/21 08:05 95 07/15/21 08:00 07/15/21 07:31 07/15/21 07:30 07/15/21 07:16 07/15/21 07:01 07/15/21 06:31 07/15/21 06:30 07/15/21 06:16 07/15/21 06:15 07/15/21 06:01 07/15/21 06:00 07/15/21 04:00 07/15/21 00:00 - Problem List & Annotations (1) Hypokalemia SNOMED Code(s): 46253142 Code(s): E87.6 - HYPOKALEMIA Status: Acute Current Visit: Yes (2) Anemia SNOMED Code(s): 577308297 Code(s): D64.9 - ANEMIA, UNSPECIFIED Status: Acute Priority: High Current Visit: Yes Qualifiers: Anemia type: other cause Other causes of anemia: acute posthemorrhagic Qualified Code(s): D62 - Acute posthemorrhagic anemia (3) Congestive heart failure SNOMED Code(s): 41748600 Code(s): I50.9 - HEART FAILURE, UNSPECIFIED Status: Acute Priority: High Current Visit: Yes Qualifiers: Heart failure type: unspecified Heart failure chronicity: acute Qualified Code(s): I50.9 - Heart failure, unspecified Annotation/Comment:: Atrial fibrillation with RVR (4) Gross hematuria SNOMED Code(s): 123068427 Code(s): R31.0 - GROSS HEMATURIA Status: Acute Priority: High Current Visit: Yes (5) Persistent atrial fibrillation with RVR SNOMED Code(s): 195510132, 689289750861515 Code(s): I48.19 - OTHER PERSISTENT ATRIAL FIBRILLATION Status: Acute Priority: High Current Visit: Yes (6) H/O primary malignant neoplasm of urinary bladder SNOMED Code(s): 376166740 Code(s): Z85.51 - PERSONAL HISTORY OF MALIGNANT NEOPLASM OF BLADDER Status: Chronic Priority: High Current Visit: Yes (7) Metastatic cancer to lung SNOMED Code(s): 49381862 Code(s): C78.00 - SECONDARY MALIGNANT NEOPLASM OF UNSPECIFIED LUNG Status: Chronic Priority: High Current Visit: Yes Qualifiers: Laterality: right Qualified Code(s): C78.01 - Secondary malignant neoplasm of right lung - Problem List Review Problem List Initiated/Reviewed/Updated: Yes - My Orders Last 24 Hours: My Active Orders 07/14/21 09:27 PT Evaluation and Treatment [CONS] Routine 07/14/21 10:35 Antiembolic Devices [RC] SCD [Sequential Compression Device] [OM.PC] Routine 07/14/21 Lunch Fluid Restriction [DIET] 07/14/21 13:16 Simethicone 80 mg PO Q6H PRN 07/14/21 18:00 Diltiazem IR [Cardizem] 30 mg PO Q6HR 07/15/21 08:34 CTA Chest W WO Contrast [Ang Chest] [CT] Routine 07/15/21 08:35 Venous Doppler Lwr Ext Bi [US] Routine 07/15/21 09:00 Digoxin [Lanoxin] 125 mcg PO DAILY - Plan Plan:: The patient is a 71-year-old lady who has been admitted as an inpatient to the intensive care unit. She is currently on a Cardizem drip and has received 2 units of blood. I have ordered an H&H to be completed at 5 PM to recheck her hemoglobin and determine if she needs further transfusions. The patient will be kept on telemetry due to the RVR and she will be started on digitalis starting tomorrow. The patient has had willie blood hematuria and therefore will not receive pharmacological DVT prophylaxis. I have also placed the patient on ceftriaxone until pneumonia is excluded. The patient does have heart failure likely related to her atrial fibrillation and she will need to have input and output recorded. The patient has needed gentle fluid resuscitation with the use of normal saline at 75 mL/h. This is balanced by use of Lasix to help reduce her heart load. She does have marked elevation of her BNP around 22,000. Repeat laboratory studies have been ordered for the morning. It is unsure if this is new for her or not. She previously had been on Eliquis and diltiazem and this may be a recurrence of atrial fibrillation. I had a discussion with the patient and the patient's , Gerry, and discussed resuscitation status with them. For now the patient is in a DO NOT RESUSCITATE DO NOT INTUBATE category but they may require this to be changed to full code. I also explained to the patient and the patient's the stroke risk by pharmacological DVT prophylaxis being contraindicated. Regardless, the patient's overall prognosis is poor at this time. 07/12/2021 The patient for now is in a DO NOT INTUBATE DO NOT RESUSCITATE category. The patient's A. fib remains in RVR and the digitalis level came back at 1.1. The patient will have daily digoxin to help her rate control. She will remain in the intensive care unit on telemetry. She is on Cardizem drip and this will be continued. Her hemoglobin in 12 hours is gone from 10.0 g/dL to 8.7 g/dL in a 12-hour. The patient still has willie hematuria. The patient has had an increase in her D-dimer however, she cannot be anticoagulated pharmacologically due to her acute hemorrhage. Will consider blood transfusion after discussion with the patient's next of kin and power of drill sergeant. I am afraid that this may be futile. Regardless, I have ordered repeat laboratory studies for the morning. The patient will have her diet as tolerated. The patient's overall prognosis at this point is poor. 07/13/2021 The patient is a 71-year-old lady who will remain as an inpatient in the [facility] unit. The patient is critically ill. She is still having willie hematuria and her hemoglobin has been stable. Repeat laboratory studies have been ordered for the morning. I have ordered the Cardizem drip to be titrated down as the patient has been tolerating the digoxin. I will continue the patient's digitalis at 125 mcg daily. I have also replaced the patient's potassium. We will continue to monitor electrolytes. I did have a discussion with the patient's and he had wanted to have hospice consult and the patient has wanted to return home and not undergo any further treatment. The patient will continue in a DO NOT INTUBATE/DO NOT RESUSCITATE category. Also the patient cannot be pharmacologically anticoagulated due to hemorrhage from her bladder from the cancer. The patient's CBC and hemoglobin will be monitored and will consider blood transfusion if her hemoglobin drops below 7.0 g/dL however, this may be refused. Overall the patient's prognosis is poor. 07/14/2021 71-year-old female who was admitted to the ICU on a Cardizem drip for A. fib RVR. History is complicated by metastatic bladder cancer and hematuria. Patient cannot be on an anticoagulant secondary to gross, severe, hematuria that did require 2 units packed red blood cells on first day of hospitalization. She continues with normal saline at 75 mL/h and Lasix to both irrigate her bladder and reduce her heart load. She will have the normal saline stopped today since her hemoglobin has been stable and she has had less bleeding and clots from her bladder. VTE prophylaxis will have to be done with SCDs. Unfortunately, we will not be able to anticoagulate to prevent a CVA due to her severe bleeding requiring transfusion. She does have a significant hypokalemia over the last 2 days and will require better and more aggressive treatment. Hospice was consulted. Cardizem was stopped and switched to digoxin presumably because of blood pressure issues. 07/15/2021 71-year-old female with A. fib and RVR complicated by a history of metastatic bladder cancer has significant increase in her D-dimer. CTA of the chest was performed to rule out PE. CTA showed 1. Moderate right-sided pleural effusion in mid left-sided pleural effusion. Pleural effusion cause consolidation within both lung bases. 2. No findings of pulmonary embolism. 3. Cardiomegaly. 4. Nodularity is noted within the chest high suspicious for metastatic disease. 5. Delayed images show what appears to be a right renal mass with probable extension into the inferior vena cava. Spleen is also enlarged. 6. Findings suspicious for liver metastasis as described above. Ultrasound of the lower extremities did not show any DVT. Patient's atrial fibrillation continues to be difficult to control. She will likely need to restart a Cardizem drip and we will need to increase her metoprolol succinate from 75 mg twice daily to 100 mg twice daily Echocardiogram showed left ventricular ejection fraction of 50 to 55%. Low normal left ventricular systolic function. Multiple abnormalities, please see results for full details. She will also need continued diuresis for her heart failure. She has a moderate sized pleural effusion on the right which we will continue to try to treat with diuresis. She will get extra potassium secondary to diuresis. Her potassium level did correct to 3.5 today. Nursing did state that there was some blood overnight in her urine, but none this morning. Plan A. fib with RVR * Continue digoxin 0.125 mg daily. Switch to p.o. from IV. * Increase metoprolol succinate 75 mg twice daily to 100 mg twice daily * Restart Cardizem drip * Follow digoxin level * Monitor potassium closely since we continue with Lasix * Dose of potassium 40 mEq p.o. x1 * Echocardiogramcompleted Congestive heart failure * Likely exacerbated from A. fib RVR * Continue diuresis. Give Lasix 40 mg IV this morning and 20 mg IV this afternoon. * Follow blood pressure closely. * Stop IV fluids and any IV medication we can switch over to p.o. * Echocardiogram completed. * 1500 mL fluid restriction Metastatic bladder cancer to the lung Possible new right renal mass extending into the inferior vena cava Possible pneumonia versus CHF * ceftriaxone * Patient has stated that she wants to be able to continue chemotherapy * Family still wants active treatment except resuscitation or intubation * I will need to discuss the new findings with family. Gross hematuria with anemia * Hematuria has improved significantly but did have some hematuria noted by nursing overnight. * Hemoglobin is stable at 8.8 * Received 2 units packed red blood cells on July 11 * Continue to monitor hemoglobin every morning Hypokalemiaresolved * Severe hypokalemia resolved * Potassium 3.5 * Give another 40 mEq secondary to continue diuresis VTE prophylaxis with SCDs CODE STATUS: DNR/DNI Greater than 96 hours secondary to complexity of illness, slow diuresis, hypokalemia.
--- NOTE | 2021-07-15 10:26 | CT ---
CT chest Technique: Multiple axial sections were obtained through the chest. Intravenous contrast was utilized. Study has been performed as a pulmonary angiogram protocol. Several delayed images were also obtained. Comparison: No prior chest CT study is available, prior chest x-ray of 07/14/21. Findings: Moderate right-sided pleural effusion is seen. Mild left-sided pleural effusion is noted. Pleural effusions cause consolidation within both lung bases. Scattered nodular densities are seen within both sides of the chest with largest nodule measuring 1.5 cm. These findings are suspicious for metastatic disease. Pulmonary arteries are well opacified. No filling defects are seen to indicate pulmonary embolism. Thoracic aorta shows no aneurysm. Several slightly prominent lymph nodes are seen within the mediastinum with largest measuring 1.9 cm. Minimal lymph nodes are seen within both hilar regions. Coronary artery calcification is seen. Heart is enlarged. Spleen size is felt to be in increased. Delayed images show enhancing masses within the left lobe (1.6 cm) and right lobe (1.8 cm) of the liver. These findings are suspicious for metastatic disease. Delayed images show findings highly suspicious for renal cell mass with extension into the inferior vena cava. Bone window settings were reviewed which show mild scattered degenerative change within the spine. No acute osseous abnormality is appreciated. Infusion port is noted on the right side. Impression: 1. Moderate right-sided pleural effusion and mild left-sided pleural effusion. Pleural effusions cause consolidation within both lung bases. 2. No findings of pulmonary embolism. 3. Cardiomegaly. 4. Nodularity is noted within the chest highly suspicious for metastatic disease. 5. Delayed images show what appears to be a right renal mass with probable extension into the inferior vena cava. Spleen is also enlarged. 6. Findings suspicious for liver metastasis as described above. 7. Other findings as described above. Diagnostic code #9
--- NOTE | 2021-07-15 10:56 | US ---
Bilateral lower extremity deep venous ultrasound: Duplex and color Doppler evaluation was obtained of the right and left common femoral, proximal greater saphenous, superficial femoral, popliteal, posterior tibial and peroneal veins. Comparison: No prior venous imaging is available. Findings: Normal phasic flow, augmentation and compression are seen. Impression: 1. No findings of deep venous thrombosis within either the right or left lower extremity. Diagnostic code #1
[2021-07-15] MEDS ORDERED: Potassium Chloride 20 MEQ Tab.ER PO ONE (11:30)
[2021-07-15] MEDS ORDERED: Diltiazem IR 60 MG Tab PO SCH (12:00)
[2021-07-15] MEDS: Diltiazem 100 MG in Sodium Chloride 0.9% 100 ML IV SCH (12:36)
[2021-07-15] MEDS: Furosemide 20 MG/2 ML VIAL IVPUSH SCH (15:21)
[2021-07-15] MEDS: Metoprolol Succinate 50 MG Tab.ER PO SCH (20:22)
[2021-07-15] MEDS: LORazepam 1 MG Tab PO PRN (20:22)
[2021-07-16] MEDS: Morphine 15 MG Tab.ER PO SCH ×3 (04:17→19:58)
[2021-07-16] MEDS: LORazepam 1 MG Tab PO PRN ×3 (04:38→20:55)
[2021-07-16] MEDS: Furosemide 40 MG/4 ML VIAL IVPUSH SCH (09:09)
[2021-07-16] MEDS: Magnesium Oxide 400 MG Tab PO SCH (09:09)
[2021-07-16] MEDS: Nystatin Susp 100,000 Unit/ML 5 ML UD Cup PO SCH ×3 (09:09→20:00)
[2021-07-16] MEDS: Metoprolol Succinate 50 MG Tab.ER PO SCH ×2 (09:09→20:00)
[2021-07-16] MEDS: Isosorbide Mononitrate 60 MG Tab.ER PO SCH ×2 (09:10→20:00)
[2021-07-16] MEDS: Digoxin 125 MCG Tab PO SCH (09:11)
[2021-07-16] MEDS: cefTRIAXone 2 GM in Sodium Chloride 0.9% 100 ML IV SCH (09:11)
--- NOTE | 2021-07-16 10:36 | PCM.PN ---
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 Subjective Update: Patient is a 71-year-old lady who had presented to the hospital on July 11, 2020 due to atrial fibrillation with rapid ventricular rate. Patient very fatigued today when I was in to see her this morning. She had recently received Ativan which would explain why she was more sedated than normal. She was started on amiodarone drip yesterday and had a good response initially to the rate control. Initial thoughts were to stop dig, but this morning her rate is not as well controlled so we will continue on her digoxin and follow levels. Functional Status: Reports: Other (Sedated this morning and did not give a full review of systems) - Patient Data Vitals - Most Recent: Last Vital Signs Temp 97.1 F 07/16/21 04:00 Pulse 97 07/16/21 09:11 Resp 16 07/16/21 04:00 BP 105/59 L 07/16/21 09:09 Pulse Ox 92 L 07/16/21 06:21 Weight - Most Recent: 155 lb I&O - Last 24 Hours: Intake & Output 07/15/21 07/16/21 07/16/21 22:59 06:59 14:59 Intake Total 600 505 Output Total 1080 275 100 Balance -480 230 -100 Lab Results Last 24 Hours: Laboratory Results - last 24 hr 07/11/21 07/16/21 07/16/21 Range/Units 05:42 05:42 05:42 WBC 11.35 H (3.98-10.04) K/mm3 RBC 3.03 L (3.98-5.22) M/mm3 Hgb 8.4 L (11.2-15.7) gm/dl Hct 27.9 L (34.1-44.9) % MCV 92.1 (79.4-94.8) fl MCH 27.7 (25.6-32.2) pg MCHC 30.1 L (32.2-35.5) g/dl RDW Std Deviation 56.2 H (36.4-46.3) fL Plt Count 105 L (182-369) K/mm3 MPV 9.9 (9.4-12.3) fl Neut % (Auto) 92.4 H (34.0-71.1) % Lymph % (Auto) 2.2 L (19.3-51.7) % Davis % (Auto) 3.6 L (4.7-12.5) % Eos % (Auto) 1.4 (0.7-5.8) Baso % (Auto) 0.0 L (0.1-1.2) % Neut # (Auto) 10.48 H (1.56-6.13) K/mm3 Lymph # (Auto) 0.25 L (1.18-3.74) K/mm3 Davis # (Auto) 0.41 H (0.24-0.36) K/mm3 Eos # (Auto) 0.16 (0.04-0.36) K/mm3 Baso # (Auto) 0.00 L (0.01-0.08) K/mm3 Manual Slide Review Abnormal smear Sodium 141 (136-145) mEq/L Potassium 3.1 L (3.5-5.1) mEq/L Chloride 105 (98-107) mEq/L Carbon Dioxide 28 (21-32) mEq/L Anion Gap 11.1 (5-15) BUN 25 H (7-18) mg/dL Creatinine 0.9 (0.55-1.02) mg/dL Est Cr Clr Drug Dosing 49.51 mL/min Estimated GFR (MDRD) > 60 (>60) mL/min BUN/Creatinine Ratio 27.8 H (14-18) Glucose 114 H (70-99) mg/dL Calcium 8.7 (8.5-10.1) mg/dL Total Bilirubin 0.6 (0.2-1.0) mg/dL AST 33 (15-37) U/L ALT 90 H (14-59) U/L Alkaline Phosphatase 81 (46-116) U/L Total Protein 4.6 L (6.4-8.2) g/dl Albumin 1.6 L (3.4-5.0) g/dl Globulin 3.0 gm/dL Albumin/Globulin Ratio 0.5 L (1-2) Crossmatch See Detail Med Orders - Current: Current Medications Digoxin (Digoxin 125 Mcg Tab) 125 mcg PO DAILY [facility] Last Admin: 07/16/21 09:11 Dose: 125 mcg Documented by: Furosemide (Furosemide 40 Mg/4 Ml Vial) 40 mg IVPUSH DAILY [facility] Last Admin: 07/16/21 09:09 Dose: 40 mg Documented by: Furosemide (Furosemide 20 Mg/2 Ml Vial) 20 mg IVPUSH Q24H [facility] Last Admin: 07/15/21 15:21 Dose: 20 mg Documented by: Sodium Chloride (Normal Saline) 1,000 mls @ 75 mls/hr IV ASDIRECTED [facility] Last Admin: 07/13/21 23:08 Dose: 75 mls/hr Documented by: Ceftriaxone Sodium 2 gm/ (Sodium Chloride) 100 mls @ 200 mls/hr IV Q24H [facility] Last Admin: 07/16/21 09:11 Dose: 200 mls/hr Documented by: Amiodarone HCl/Dextrose (Nexterone In Dextrose 360 Mg/200 Ml) 360 mg in 200 mls @ 33.333 mls/hr IV ASDIRECTED [facility]; Protocol Last Admin: 07/16/21 00:41 Dose: 16.7 mls/hr Documented by: Isosorbide Mononitrate (Isosorbide Mononitrate 60 Mg Tab.Er) 60 mg PO BID [facility] Last Admin: 07/16/21 09:10 Dose: 60 mg Documented by: Lorazepam (Lorazepam 1 Mg Tab) 1 mg PO TID PRN PRN Reason: Anxiety Last Admin: 07/16/21 04:38 Dose: 1 mg Documented by: Magnesium Oxide (Magnesium Oxide 400 Mg Tab) 400 mg PO DAILY [facility] Last Admin: 07/16/21 09:09 Dose: 400 mg Documented by: Metoprolol Succinate (Metoprolol Succinate 50 Mg Tab.Er) 100 mg PO BID [facility] Last Admin: 07/16/21 09:09 Dose: 100 mg Documented by: Morphine Sulfate (Morphine 15 Mg Tab.Er) 15 mg PO DAILY@1200 [facility] Last Admin: 07/15/21 12:35 Dose: 15 mg Documented by: Morphine Sulfate (Morphine 15 Mg Tab.Er) 30 mg PO BID@0400,2000 [facility] Last Admin: 07/16/21 04:17 Dose: 30 mg Documented by: Nystatin (Nystatin Susp 100,000 Unit/Ml 5 Ml Ud Cup) 5 ml PO TID [facility] Last Admin: 07/16/21 09:09 Dose: 5 ml Documented by: Ondansetron HCl (Ondansetron 4 Mg Tab.Dis) 8 mg PO TID PRN PRN Reason: Nausea Oxycodone/Acetaminophen (Acetaminophen/Oxycodone 325-5 Mg Tab) 1 tab PO Q6H PRN PRN Reason: Pain (severe 7-10) Prochlorperazine Maleate (Prochlorperazine 5 Mg Tab) 10 mg PO QID PRN PRN Reason: Vomiting Simethicone (Simethicone 80 Mg Tab.Chew) 80 mg PO Q6H PRN PRN Reason: Gas Last Admin: 07/14/21 13:28 Dose: 80 mg Documented by: Discontinued Medications Digoxin (Digoxin 500 Mcg/2 Ml Amp) 250 mcg IVPUSH ONETIME ONE Stop: 07/11/21 10:16 Last Admin: 07/11/21 10:26 Dose: 250 mcg Documented by: Digoxin (Digoxin 500 Mcg/2 Ml Amp) 125 mcg IVPUSH ONETIME ONE Stop: 07/11/21 12:31 Last Admin: 07/11/21 18:04 Dose: Not Given Documented by: Digoxin (Digoxin 500 Mcg/2 Ml Amp) 125 mcg IVPUSH ONETIME ONE Stop: 07/11/21 14:31 Last Admin: 07/11/21 14:32 Dose: 125 mcg Documented by: Digoxin (Digoxin 500 Mcg/2 Ml Amp) 125 mcg IVPUSH ONETIME ONE Stop: 07/11/21 18:31 Last Admin: 07/11/21 18:28 Dose: 125 mcg Documented by: Digoxin (Digoxin 500 Mcg/2 Ml Amp) 125 mcg IVPUSH DAILY [facility] Last Admin: 07/14/21 08:01 Dose: 125 mcg Documented by: Digoxin (Digoxin 125 Mcg Tab) 125 mcg PO DAILY [facility] Last Admin: 07/15/21 08:06 Dose: 125 mcg Documented by: Diltiazem HCl (Diltiazem 50 Mg/10 Ml Sdv) 5 mg IVPUSH ONETIME ONE Stop: 07/11/21 07:21 Last Admin: 07/11/21 07:37 Dose: 5 mg Documented by: Diltiazem HCl (Diltiazem 50 Mg/10 Ml Sdv) 10 mg IVPUSH ONETIME ONE Stop: 07/11/21 08:43 Last Admin: 07/11/21 08:49 Dose: 10 mg Documented by: Diltiazem HCl (Diltiazem 50 Mg/10 Ml Sdv) 10 mg IVPUSH ONETIME ONE Stop: 07/11/21 09:37 Last Admin: 07/11/21 09:53 Dose: 10 mg Documented by: Diltiazem HCl (Diltiazem 50 Mg/10 Ml Sdv) 10 mg IVPUSH ONETIME ONE Stop: 07/11/21 09:54 Last Admin: 07/11/21 10:44 Dose: Not Given Documented by: Diltiazem HCl (Diltiazem Ir 30 Mg Tab) 30 mg PO ONETIME ONE Stop: 07/14/21 12:38 Last Admin: 07/14/21 12:51 Dose: 30 mg Documented by: Diltiazem HCl (Diltiazem Ir 30 Mg Tab) 30 mg PO Q6HR [facility] Last Admin: 07/15/21 06:05 Dose: 30 mg Documented by: Diltiazem HCl (Diltiazem Ir 30 Mg Tab) 30 mg PO ONETIME ONE Stop: 07/15/21 08:26 Last Admin: 07/15/21 08:41 Dose: 30 mg Documented by: Diltiazem HCl (Diltiazem Ir 60 Mg Tab) 60 mg PO Q6HR [facility] Last Admin: 07/15/21 13:35 Dose: Not Given Documented by: Furosemide (Furosemide 40 Mg/4 Ml Vial) 40 mg IVPUSH NOW ONE Stop: 07/11/21 14:01 Last Admin: 07/11/21 12:34 Dose: 40 mg Documented by: Furosemide (Furosemide 40 Mg/4 Ml Vial) 40 mg IVPUSH NOW ONE Stop: 07/11/21 18:31 Last Admin: 07/11/21 18:28 Dose: 40 mg Documented by: Cefepime HCl 2 gm/ Sodium (Chloride) 50 mls @ 100 mls/hr IV ONETIME ONE Stop: 07/11/21 07:43 Last Admin: 07/11/21 07:32 Dose: 100 mls/hr Documented by: Diltiazem HCl 100 mg/ Sodium (Chloride) 100 mls @ 10 mls/hr IV TITRATE [facility]; Protocol Last Titration: 07/15/21 15:15 Dose: 20 mg/hr, 20 mls/hr Documented by: Diltiazem HCl 100 mg/ Sodium (Chloride) 100 mls @ 10 mls/hr IV TITRATE [facility] Last Infusion: 07/11/21 18:40 Dose: 10 mg/hr, 10 mls/hr Documented by: Potassium Chloride 10 meq/ (Premix) 100 mls @ 100 mls/hr IV Q1H [facility] Stop: 07/13/21 09:29 Last Admin: 07/13/21 07:43 Dose: Not Given Documented by: Potassium Chloride 10 meq/ (Premix) 100 mls @ 100 mls/hr IV Q1H [facility] Stop: 07/14/21 12:29 Last Admin: 07/14/21 11:52 Dose: 100 mls/hr Documented by: Sodium Chloride (Normal Saline) 100 mls @ 60 mls/hr IV ASDIRECTED [facility] Stop: 07/15/21 11:00 Last Admin: 07/15/21 10:02 Dose: 60 mls/hr Documented by: Amiodarone HCl/Dextrose (Nexterone In Dextrose 150 Mg/100 Ml) 100 mls @ 600 mls/hr IV .BOLUS ONE; Protocol Stop: 07/15/21 17:58 Last Admin: 07/15/21 18:16 Dose: 600 mls/hr Documented by: Iopamidol (Iopamidol 755 Mg/Ml 100 Ml Bottle) 100 ml IVPUSH ONETIME ONE Stop: 07/15/21 08:43 Last Admin: 07/15/21 10:02 Dose: 100 ml Documented by: Metoprolol Succinate (Metoprolol Succinate 25 Mg Tab.Er) 75 mg PO BID [facility] Last Admin: 07/15/21 08:05 Dose: 75 mg Documented by: Non-Formulary Medication (Olanzapine) 10 mg PO BEDTIME [facility] Last Admin: 07/11/21 22:00 Dose: Not Given Documented by: Potassium Chloride (Potassium Chloride 20 Meq Tab.Er) 40 meq PO ONETIME ONE Stop: 07/13/21 07:16 Last Admin: 07/13/21 08:04 Dose: 40 meq Documented by: Potassium Chloride (Potassium Chloride 20 Meq Tab.Er) 40 meq PO ONETIME ONE Stop: 07/14/21 08:01 Last Admin: 07/14/21 07:59 Dose: 40 meq Documented by: Potassium Chloride (Potassium Chloride 20 Meq Tab.Er) 40 meq PO ONETIME ONE Stop: 07/14/21 21:01 Last Admin: 07/14/21 20:59 Dose: 40 meq Documented by: Potassium Chloride (Potassium Chloride 20 Meq Tab.Er) 40 meq PO ONETIME ONE Stop: 07/15/21 11:31 Last Admin: 07/15/21 12:35 Dose: 40 meq Documented by: Sodium Chloride (Sodium Chloride 0.9% 10 Ml Syringe) 10 ml FLUSH ONETIME ONE Stop: 07/15/21 08:43 Last Admin: 07/15/21 10:02 Dose: 10 ml Documented by: - Exam Quality Assessment: Supplemental Oxygen Urinary Catheter Total Time: 4Days 11Hours General: Sedated. No: Alert HEENT: Pupils Equal Neck: Supple Lungs: Normal Respiratory Effort, Crackles Cardiovascular: Irregular Rhythm (Regular rate and rhythm ranging from 90-110) GI/Abdominal Exam: Normal Bowel Sounds, Soft, Non-Tender, No Distention Extremities: Pedal Edema (2+) Skin: Warm, Dry, Intact - Patient Data Lab Results Last 24 hrs: Laboratory Results - last 24 hr 07/11/21 07/16/21 07/16/21 Range/Units 05:42 05:42 05:42 WBC 11.35 H (3.98-10.04) K/mm3 RBC 3.03 L (3.98-5.22) M/mm3 Hgb 8.4 L (11.2-15.7) gm/dl Hct 27.9 L (34.1-44.9) % MCV 92.1 (79.4-94.8) fl MCH 27.7 (25.6-32.2) pg MCHC 30.1 L (32.2-35.5) g/dl RDW Std Deviation 56.2 H (36.4-46.3) fL Plt Count 105 L (182-369) K/mm3 MPV 9.9 (9.4-12.3) fl Neut % (Auto) 92.4 H (34.0-71.1) % Lymph % (Auto) 2.2 L (19.3-51.7) % Davis % (Auto) 3.6 L (4.7-12.5) % Eos % (Auto) 1.4 (0.7-5.8) Baso % (Auto) 0.0 L (0.1-1.2) % Neut # (Auto) 10.48 H (1.56-6.13) K/mm3 Lymph # (Auto) 0.25 L (1.18-3.74) K/mm3 Davis # (Auto) 0.41 H (0.24-0.36) K/mm3 Eos # (Auto) 0.16 (0.04-0.36) K/mm3 Baso # (Auto) 0.00 L (0.01-0.08) K/mm3 Manual Slide Review Abnormal smear Sodium 141 (136-145) mEq/L Potassium 3.1 L (3.5-5.1) mEq/L Chloride 105 (98-107) mEq/L Carbon Dioxide 28 (21-32) mEq/L Anion Gap 11.1 (5-15) BUN 25 H (7-18) mg/dL Creatinine 0.9 (0.55-1.02) mg/dL Est Cr Clr Drug Dosing 49.51 mL/min Estimated GFR (MDRD) > 60 (>60) mL/min BUN/Creatinine Ratio 27.8 H (14-18) Glucose 114 H (70-99) mg/dL Calcium 8.7 (8.5-10.1) mg/dL Total Bilirubin 0.6 (0.2-1.0) mg/dL AST 33 (15-37) U/L ALT 90 H (14-59) U/L Alkaline Phosphatase 81 (46-116) U/L Total Protein 4.6 L (6.4-8.2) g/dl Albumin 1.6 L (3.4-5.0) g/dl Globulin 3.0 gm/dL Albumin/Globulin Ratio 0.5 L (1-2) Crossmatch See Detail Result Diagrams: 07/16/21 05:42 07/16/21 05:42 Sepsis Event Note - Evaluation Sepsis Screening Result: No Definite Risk - Focused Exam Vital Signs: Vital Signs Temp Pulse Resp BP BP Pulse Ox Pulse Ox 07/16/21 09:11 97 07/16/21 09:09 90 105/59 L 07/16/21 06:52 110/60 07/16/21 06:21 92 L 07/16/21 06:00 106/52 L 07/16/21 05:00 108/60 07/16/21 04:00 97.1 F 16 83/60 L 92 L 07/16/21 03:00 98/41 L 07/16/21 02:00 96/56 L 07/16/21 01:00 95/57 L 07/16/21 00:00 98.4 F 15 107/56 L 92 L 07/15/21 23:00 95/60 - Problem List & Annotations (1) Hypokalemia SNOMED Code(s): 99326920 Code(s): E87.6 - HYPOKALEMIA Status: Acute Current Visit: Yes (2) Anemia SNOMED Code(s): 412119115 Code(s): D64.9 - ANEMIA, UNSPECIFIED Status: Acute Priority: High Current Visit: Yes Qualifiers: Anemia type: other cause Other causes of anemia: acute posthemorrhagic Qualified Code(s): D62 - Acute posthemorrhagic anemia (3) Congestive heart failure SNOMED Code(s): 28977315 Code(s): I50.9 - HEART FAILURE, UNSPECIFIED Status: Acute Priority: High Current Visit: Yes Qualifiers: Heart failure type: unspecified Heart failure chronicity: acute Qualified Code(s): I50.9 - Heart failure, unspecified Annotation/Comment:: Atrial fibrillation with RVR (4) Gross hematuria SNOMED Code(s): 014240256 Code(s): R31.0 - GROSS HEMATURIA Status: Acute Priority: High Current Visit: Yes (5) Persistent atrial fibrillation with RVR SNOMED Code(s): 890014695, 027029602464198 Code(s): I48.19 - OTHER PERSISTENT ATRIAL FIBRILLATION Status: Acute Priority: High Current Visit: Yes (6) H/O primary malignant neoplasm of urinary bladder SNOMED Code(s): 932543345 Code(s): Z85.51 - PERSONAL HISTORY OF MALIGNANT NEOPLASM OF BLADDER Status: Chronic Priority: High Current Visit: Yes (7) Metastatic cancer to lung SNOMED Code(s): 07271893 Code(s): C78.00 - SECONDARY MALIGNANT NEOPLASM OF UNSPECIFIED LUNG Status: Chronic Priority: High Current Visit: Yes Qualifiers: Laterality: right Qualified Code(s): C78.01 - Secondary malignant neoplasm of right lung - Problem List Review Problem List Initiated/Reviewed/Updated: Yes - My Orders Last 24 Hours: My Active Orders 07/15/21 15:00 Furosemide [Lasix] 20 mg IVPUSH Q24H 11/02/21 17:45 Amiodarone In Dextrose,Iso-Osm [Nexterone in Dextrose 360 MG/200 ML] 360 mg in 200 ml IV ASDIRECTED 07/15/21 21:00 Metoprolol Succinate [Toprol XL] 100 mg PO BID 07/16/21 09:00 Digoxin [Lanoxin] 125 mcg PO DAILY 07/16/21 Lunch Regular Diet [DIET] - Plan Plan:: The patient is a 71-year-old lady who has been admitted as an inpatient to the intensive care unit. She is currently on a Cardizem drip and has received 2 units of blood. I have ordered an H&H to be completed at 5 PM to recheck her hemoglobin and determine if she needs further transfusions. The patient will be kept on telemetry due to the RVR and she will be started on digitalis starting tomorrow. The patient has had willie blood hematuria and therefore will not receive pharmacological DVT prophylaxis. I have also placed the patient on ceftriaxone until pneumonia is excluded. The patient does have heart failure likely related to her atrial fibrillation and she will need to have input and output recorded. The patient has needed gentle fluid resuscitation with the use of normal saline at 75 mL/h. This is balanced by use of Lasix to help reduce her heart load. She does have marked elevation of her BNP around 22,000. Repeat laboratory studies have been ordered for the morning. It is unsure if this is new for her or not. She previously had been on Eliquis and diltiazem and this may be a recurrence of atrial fibrillation. I had a discussion with the patient and the patient's , Gerry, and discussed resuscitation status with them. For now the patient is in a DO NOT RESUSCITATE DO NOT INTUBATE category but they may require this to be changed to full code. I also explained to the patient and the patient's the stroke risk by pharmacological DVT prophylaxis being contraindicated. Regardless, the patient's overall prognosis is poor at this time. 07/12/2021 The patient for now is in a DO NOT INTUBATE DO NOT RESUSCITATE category. The patient's A. fib remains in RVR and the digitalis level came back at 1.1. The patient will have daily digoxin to help her rate control. She will remain in the intensive care unit on telemetry. She is on Cardizem drip and this will be continued. Her hemoglobin in 12 hours is gone from 10.0 g/dL to 8.7 g/dL in a 12-hour. The patient still has willie hematuria. The patient has had an increase in her D-dimer however, she cannot be anticoagulated pharmacologically due to her acute hemorrhage. Will consider blood transfusion after discussion with the patient's next of kin and power of prosecuting attorney. I am afraid that this may be futile. Regardless, I have ordered repeat laboratory studies for the morning. The patient will have her diet as tolerated. The patient's overall prognosis at this point is poor. 07/13/2021 The patient is a 71-year-old lady who will remain as an inpatient in the intensive care unit. The patient is critically ill. She is still having willie hematuria and her hemoglobin has been stable. Repeat laboratory studies have been ordered for the morning. I have ordered the Cardizem drip to be titrated down as the patient has been tolerating the digoxin. I will continue the patient's digitalis at 125 mcg daily. I have also replaced the patient's potassium. We will continue to monitor electrolytes. I did have a discussion with the patient's and he had wanted to have hospice consult and the p atient has wanted to return home and not undergo any further treatment. The patient will continue in a DO NOT INTUBATE/DO NOT RESUSCITATE category. Also the patient cannot be pharmacologically anticoagulated due to hemorrhage from her bladder from the cancer. The patient's CBC and hemoglobin will be monitored and will consider blood transfusion if her hemoglobin drops below 7.0 g/dL however, this may be refused. Overall the patient's prognosis is poor. 07/14/2021 71-year-old female who was admitted to the ICU on a Cardizem drip for A. fib RVR. History is complicated by metastatic bladder cancer and hematuria. Patient cannot be on an anticoagulant secondary to gross, severe, hematuria that did require 2 units packed red blood cells on first day of hospitalization. She continues with normal saline at 75 mL/h and Lasix to both irrigate her bladder and reduce her heart load. She will have the normal saline stopped today since her hemoglobin has been stable and she has had less bleeding and clots from her bladder. VTE prophylaxis will have to be done with SCDs. Unfortunately, we will not be able to anticoagulate to prevent a CVA due to her severe bleeding requiring transfusion. She does have a significant hypokalemia over the last 2 days and will require better and more aggressive treatment. Hospice was consulted. Cardizem was stopped and switched to digoxin presumably because of blood pressure issues. 07/15/2021 71-year-old female with A. fib and RVR complicated by a history of metastatic bladder cancer has significant increase in her D-dimer. CTA of the chest was performed to rule out PE. CTA showed 1. Moderate right-sided pleural effusion in mid left-sided pleural effusion. Pleural effusion cause consolidation within both lung bases. 2. No findings of pulmonary embolism. 3. Cardiomegaly. 4. Nodularity is noted within the chest high suspicious for metastatic disease. 5. Delayed images show what appears to be a right renal mass with probable extension into the inferior vena cava. Spleen is also enlarged. 6. Findings suspicious for liver metastasis as described above. Ultrasound of the lower extremities did not show any DVT. Patient's atrial fibrillation continues to be difficult to control. She will likely need to restart a Cardizem drip and we will need to increase her metoprolol succinate from 75 mg twice daily to 100 mg twice daily Echocardiogram showed left ventricular ejection fraction of 50 to 55%. Low normal left ventricular systolic function. Multiple abnormalities, please see results for full details. She will also need continued diuresis for her heart failure. She has a moderate sized pleural effusion on the right which we will continue to try to treat with diuresis. She will get extra potassium secondary to diuresis. Her potassium level did correct to 3.5 today. Nursing did state that there was some blood overnight in her urine, but none this morning. July 16, 2021 71-year-old female with A. fib and RVR complicated by metastatic bladder cancer to the right kidney, liver, lungs. Patient is having better rate control with metoprolol succinate 100 mg twice daily, digoxin 0.125 mg daily, and amiodarone. She did have a potassium of 3.1 so this requires additional potassium replacement. Continue with diuresis, Lasix 40 mg IV in the morning and 20 mg IV in the afternoon. We will continue to monitor potassium levels. Patient is down to 0.5 L and did have 1 L overnight. We will continue to monitor and this will likely improve as we continue with her diuresis. Continue with 1500 mL fluid restriction. Continue with morphine for her metastatic cancer pain and Ativan for anxiety. Complete a total of 7 days of ceftriaxone for her suspected pneumonia. Hopefully will be able to switch her over to p.o. amiodarone today and downgrade her by tomorrow to medical surgical status. Plan discharge following for home health care. Plan A. fib with RVR * Continue digoxin 0.125 mg daily. * Continue metoprolol succinate 100 mg twice daily * Follow digoxin level * Monitor potassium closely since we continue with Lasix * Dose of potassium 40 mEq p.o. x2 * Echocardiogramcompleted Congestive heart failure * Likely exacerbated from A. fib RVR * Continue diuresis. Give Lasix 40 mg IV this morning and 20 mg IV this afternoon. * Follow blood pressure closely. * Stop IV fluids and any IV medication we can switch over to p.o. * Echocardiogram completed. * 1500 mL fluid restriction Metastatic bladder cancer to the lung Possible new right renal mass extending into the inferior vena cava Possible pneumonia versus CHF * ceftriaxone for total of 7 days * Patient has stated that she wants to be able to continue chemotherapy * Family still wants active treatment except resuscitation or intubation Gross hematuria with anemia * Hematuria has improved significantly but did have some hematuria noted by nursing overnight. * Hemoglobin is stable at 8.8 * Received 2 units packed red blood cells on July 11 * Continue to monitor hemoglobin every morning Hypokalemia * Potassium 3.1 this morning * Potassium 40 mEq p.o. twice daily today and monitor VTE prophylaxis with SCDs CODE STATUS: DNR/DNI Greater than 96 hours secondary to complexity of illness, slow diuresis, hypokalemia.
[2021-07-16] MEDS: Potassium Chloride 20 MEQ Tab.ER PO SCH ×2 (11:22→20:00)
[2021-07-16] MEDS ORDERED: Magnesium Hydroxide 400 MG/5 ML Susp 30 ML Cup PO ONE (14:23)
[2021-07-16] MEDS: Furosemide 20 MG/2 ML VIAL IVPUSH SCH (14:33)
[2021-07-16] MEDS: Simethicone 80 MG Tab.Chew PO PRN (14:34)
[2021-07-17] MEDS: Simethicone 80 MG Tab.Chew PO PRN (03:37)
[2021-07-17] MEDS: LORazepam 1 MG Tab PO PRN ×2 (03:37→11:54)
[2021-07-17] MEDS: Morphine 15 MG Tab.ER PO SCH ×2 (03:37→11:54)
[2021-07-17] MEDS: cefTRIAXone 2 GM in Sodium Chloride 0.9% 100 ML IV SCH (08:26)
[2021-07-17] MEDS: Furosemide 40 MG/4 ML VIAL IVPUSH SCH (08:31)
[2021-07-17] MEDS: Metoprolol Succinate 50 MG Tab.ER PO SCH ×2 (08:35→09:37)
[2021-07-17] MEDS: Isosorbide Mononitrate 60 MG Tab.ER PO SCH ×2 (08:36→09:39)
[2021-07-17] MEDS: Magnesium Oxide 400 MG Tab PO SCH ×2 (08:36→09:37)
[2021-07-17] MEDS: Nystatin Susp 100,000 Unit/ML 5 ML UD Cup PO SCH (08:36)
[2021-07-17] MEDS: Digoxin 125 MCG Tab PO SCH ×2 (08:36→09:38)
[2021-07-17] MEDS ORDERED: Amiodarone 200 MG Tab PO SCH (09:00)
--- NOTE | 2021-07-17 09:21 | PCM.DCSUM1 ---
Discharge Summary - Hospital Course HPI Initial Comments: Patient is a 71-year-old lady who had presented to the emergency department early this morning with a complaint of palpitations and rapid heartbeat. The patient was found to be in atrial fibrillation with RVR. The patient had remained in the emergency department for an extended time due to ICU bed availability. The patient has a complex history of metastatic cancer that has spread from her bladder to her lung and lymph nodes. The patient also has had gross hematuria from her bladder cancer. The patient also had been on apixaban at home. The patient herself says that she was diagnosed with cancer approximately 6 weeks ago and has undergone 1 round of chemotherapy. The patient has felt very weak and fatigued and she has had pain in her abdomen that is not relieved with her MS Contin. She has had no specific aggravating or relieving factors for this. The patient also has been complaining of constipation as well. The patient also noticed that she was starting to have edema in her lower extremities last week. She has had some difficulty of breath associated with this as well. The patient also had COVID-19 pneumonia end of April 2021. The patient has had some confusion but she has been able to supply information. Assessment/Plan Comment:: The patient is a 71-year-old lady who has been admitted as an inpatient to the intensive care unit. She is currently on a Cardizem drip and has received 2 units of blood. I have ordered an H&H to be completed at 5 PM to recheck her hemoglobin and determine if she needs further transfusions. The patient will be kept on telemetry due to the RVR and she will be started on digitalis starting tomorrow. The patient has had willie blood hematuria and therefore will not receive pharmacological DVT prophylaxis. I have also placed the patient on ceftriaxone until pneumonia is excluded. The patient does have heart failure likely related to her atrial fibrillation and she will need to have input and output recorded. The patient has needed gentle fluid resuscitation with the use of normal saline at 75 mL/h. This is balanced by use of Lasix to help reduce her heart load. She does have marked elevation of her BNP around 22,000. Repeat laboratory studies have been ordered for the morning. It is unsure if this is new for her or not. She previously had been on Eliquis and diltiazem and this may be a recurrence of atrial fibrillation. I had a discussion with the patient and the patient's , Gerry, and discussed resuscitation status with them. For now the patient is in a DO NOT RESUSCITATE DO NOT INTUBATE category but they may require this to be changed to full code. I also explained to the patient and the patient's the stroke risk by pharmacological DVT prophylaxis being contraindicated. Regardless, the patient's overall prognosis is poor at this time. - Mortality Measure Prognosis:: Poor Diagnosis: Stroke: No - Discharge Data Discharge Date: 07/17/21 Discharge Disposition: Home, W Home Health Agency 06 Condition: Poor - Referral to Home Health Date of Face to Face Encounter: 07/17/21 Reason for Homebound Status: Face to Face meeting with pt and or family. Pt has the following diagnosis; Persistent Afib with RVR. CHF, H/O primary malignant neoplasm of urinary bladder, Metastatic cancer to Lung, also see discharge summary for additional diagnosis. Pt needs Home Health Care nursing services for; skilled assessment, vital signs, disease education/management, disease progression education, and medication education. Physical therapy for gait training, transfer training, safety education, Neuromuscular reeducation, Therapeutic exercise, caregiver training, balance training, equipment recommendations. Occupational therapy for; Activities of daily living, balance training, functional mobility training, safety education, therapeutic activities, therapeutic exercises. FA[employer]ORY [employer]PERT for assistance with ADLs. Home safety eval. Pt is currently homebound related decreased activity tolerance, decreased level of endurance, and need for assistance with ambulation. Pt will be followed by his primary provider Dr. Paige. Primary Care Physician: Jackie Lopez MD Skilled Need: Patient requires a hospital bed. She will need the head of her bed to be elevated more than 30 degrees most of the time due to congestive heart failure. - Discharge Diagnosis/Problem(s) (1) Hypokalemia SNOMED Code(s): 44705913 ICD Code: E87.6 - HYPOKALEMIA Status: Acute Current Visit: Yes (2) Anemia SNOMED Code(s): 012320393 ICD Code: D64.9 - ANEMIA, UNSPECIFIED Status: Acute Priority: High Current Visit: Yes Qualifiers: Anemia type: other cause Other causes of anemia: acute posthemorrhagic Qualified Code(s): D62 - Acute posthemorrhagic anemia (3) Congestive heart failure SNOMED Code(s): 42099284 ICD Code: I50.9 - HEART FAILURE, UNSPECIFIED Status: Acute Priority: High Current Visit: Yes Problem Details: Atrial fibrillation with RVR Qualifiers: Heart failure type: unspecified Heart failure chronicity: acute Qualified Code(s): I50.9 - Heart failure, unspecified (4) Gross hematuria SNOMED Code(s): 501036960 ICD Code: R31.0 - GROSS HEMATURIA Status: Acute Priority: High Current Visit: Yes (5) Persistent atrial fibrillation with RVR SNOMED Code(s): 340669743, 361565264947572 ICD Code: I48.19 - OTHER PERSISTENT ATRIAL FIBRILLATION Status: Acute Priority: High Current Visit: Yes (6) H/O primary malignant neoplasm of urinary bladder SNOMED Code(s): 829450286 ICD Code: Z85.51 - PERSONAL HISTORY OF MALIGNANT NEOPLASM OF BLADDER Status: Chronic Priority: High Current Visit: Yes (7) Metastatic cancer to lung SNOMED Code(s): 61789962 ICD Code: C78.00 - SECONDARY MALIGNANT NEOPLASM OF UNSPECIFIED LUNG Status: Chronic Priority: High Current Visit: Yes Qualifiers: Laterality: right Qualified Code(s): C78.01 - Secondary malignant neoplasm of right lung - Patient Summary/Data Consults: Consultations 07/14/21 09:27 PT Evaluation and Treatment [CONS] Routine Hospital Course: The patient is a 71-year-old lady who has been admitted as an inpatient to the intensive care unit. She is currently on a Cardizem drip and has received 2 units of blood. I have ordered an H&H to be completed at 5 PM to recheck her hemoglobin and determine if she needs further transfusions. The patient will be kept on telemetry due to the RVR and she will be started on digitalis starting tomorrow. The patient has had willie blood hematuria and therefore will not receive pharmacological DVT prophylaxis. I have also placed the patient on ceftriaxone until pneumonia is excluded. The patient does have heart failure likely related to her atrial fibrillation and she will need to have input and output recorded. The patient has needed gentle fluid resuscitation with the use of normal saline at 75 mL/h. This is balanced by use of Lasix to help reduce her heart load. She does have marked elevation of her BNP around 22,000. Repeat laboratory studies have been ordered for the morning. It is unsure if this is new for her or not. She previously had been on Eliquis and diltiazem and this may be a recurrence of atrial fibrillation. I had a discussion with the patient and the patient's , Gerry, and discussed resuscitation status with them. For now the patient is in a DO NOT RESUSCITATE DO NOT INTUBATE category but they may require this to be changed to full code. I also explained to the patient and the patient's the stroke risk by pharmacological DVT prophylaxis being contraindicated. Regardless, the patient's overall prognosis is poor at this time. 07/12/2021 The patient for now is in a DO NOT INTUBATE DO NOT RESUSCITATE category. The patient's A. fib remains in RVR and the digitalis level came back at 1.1. The patient will have daily digoxin to help her rate control. She will remain in the intensive care unit on telemetry. She is on Cardizem drip and this will be continued. Her hemoglobin in 12 hours is gone from 10.0 g/dL to 8.7 g/dL in a 12-hour. The patient still has willie hematuria. The patient has had an increase in her D-dimer however, she cannot be anticoagulated pharmacologically due to her acute hemorrhage. Will consider blood transfusion after discussion with the patient's next of kin and power of coper hand. I am afraid that this may be futile. Regardless, I have ordered repeat laboratory studies for the mor hemanth. The patient will have her diet as tolerated. The patient's overall prognosis at this point is poor. 07/13/2021 The patient is a 71-year-old lady who will remain as an inpatient in the intensive care unit. The patient is critically ill. She is still having willie hematuria and her hemoglobin has been stable. Repeat laboratory studies have been ordered for the morning. I have ordered the Cardizem drip to be titrated down as the patient has been tolerating the digoxin. I will continue the patient's digitalis at 125 mcg daily. I have also replaced the patient's potassium. We will continue to monitor electrolytes. I did have a discussion with the patient's and he had wanted to have hospice consult and the patient has wanted to return home and not undergo any further treatment. The patient will continue in a DO NOT INTUBATE/DO NOT RESUSCITATE category. Also the patient cannot be pharmacologically anticoagulated due to hemorrhage from her bladder from the cancer. The patient's CBC and hemoglobin will be monitored and will consider blood transfusion if her hemoglobin drops below 7.0 g/dL however, this may be refused. Overall the patient's prognosis is poor. 07/14/2021 71-year-old female who was admitted to the ICU on a Cardizem drip for A. fib RVR. History is complicated by metastatic bladder cancer and hematuria. Patient cannot be on an anticoagulant secondary to gross, severe, hematuria that did require 2 units packed red blood cells on first day of hospitalization. She continues with normal saline at 75 mL/h and Lasix to both irrigate her bladder and reduce her heart load. She will have the normal saline stopped today since her hemoglobin has been stable and she has had less bleeding and clots from her bladder. VTE prophylaxis will have to be done with SCDs. Unfortunately, we will not be able to anticoagulate to prevent a CVA due to her severe bleeding requiring transfusion. She does have a significant hypokalemia over the last 2 days and will require better and more aggressive treatment. Hospice was consulted. Cardizem was stopped and switched to digoxin presumably because of blood pressure issues. 07/15/2021 71-year-old female with A. fib and RVR complicated by a history of metastatic bladder cancer has significant increase in her D-dimer. CTA of the chest was performed to rule out PE. CTA showed 1. Moderate right-sided pleural effusion in mid left-sided pleural effusion. Pleural effusion cause consolidation within both lung bases. 2. No findings of pulmonary embolism. 3. Cardiomegaly. 4. Nodularity is noted within the chest high suspicious for metastatic disease. 5. Delayed images show what appears to be a right renal mass with probable extension into the inferior vena cava. Spleen is also enlarged. 6. Findings suspicious for liver metastasis as described above. Ultrasound of the lower extremities did not show any DVT. Patient's atrial fibrillation continues to be difficult to control. She will likely need to restart a Cardizem drip and we will need to increase her metoprolol succinate from 75 mg twice daily to 100 mg twice daily Echocardiogram showed left ventricular ejection fraction of 50 to 55%. Low normal left ventricular systolic function. Multiple abnormalities, please see results for full details. She will also need continued diuresis for her heart failure. She has a moderate sized pleural effusion on the right which we will continue to try to treat with diuresis. She will get extra potassium secondary to diuresis. Her potassium level did correct to 3.5 today. Nursing did state that there was some blood overnight in her urine, but none this morning. July 16, 2021 71-year-old female with A. fib and RVR complicated by metastatic bladder cancer to the right kidney, liver, lungs. Patient is having better rate control with metoprolol succinate 100 mg twice daily, digoxin 0.125 mg daily, and amiodarone. She did have a potassium of 3.1 so this requires additional potassium replacement. Continue with diuresis, Lasix 40 mg IV in the morning and 20 mg IV in the afternoon. We will continue to monitor potassium levels. Patient is down to 0.5 L and did have 1 L overnight. We will continue to monitor and this will likely improve as we continue with her diuresis. Continue with 1500 mL fluid restriction. Continue with morphine for her metastatic cancer pain and Ativan for anxiety. Complete a total of 7 days of ceftriaxone for her suspected pneumonia. Hopefully will be able to switch her over to p.o. amiodarone today and downgrade her by tomorrow to medical surgical status. Plan discharge following for home health care. 07/17/2021 Last night family decided that she was going home today. They elected to go home prior to finishing the amiodarone drip and go straight to oral medications with thoughts of having home health when she gets home. They are considering hospice care and comfort measures. Her rate is better controlled today with her ventricular rate in the 80s and 90s with periods in the low 100s. She has had a good amount of diuresis and her edema is significantly improved. She is to follow-up with her oncologist and primary care provider as soon as possible. She continues on 0.5 to 1 L of O2 and she will continue with her urinary catheter secondary to sacral decubitus ulcer and for comfort measures. She needs frequent positioning and the ulcer will get significantly worse if it becomes wet. Plan A. fib with RVR * Continue digoxin 0.125 mg daily. * Continue metoprolol succinate 100 mg twice daily * Amiodarone 200 mg daily * Monitor potassium closely as outpatient * Echocardiogramcompleted Congestive heart failure * Likely exacerbated from A. fib RVR * Switch to Lasix 40 mg twice daily * Follow blood pressure and weights at home * Echocardiogram completed. * 1500 mL fluid restriction Metastatic bladder cancer to the lung Possible new right renal mass extending into the inferior vena cava Possible pneumonia versus CHF * ceftriaxone finished * Patient has stated that she wants to be able to continue chemotherapy * , But family is considering comfort measures Gross hematuria with anemia * Hemoglobin is stable at 8.8 * Received 2 units packed red blood cells on July 11 VTE prophylaxis with SCDs CODE STATUS: DNR/DNI Greater than 96 hours secondary to complexity of illness, slow diuresis, hypokalemia. - Patient Instructions Diet: Usual Diet as Tolerated Activity: As Tolerated Driving: Do Not Drive Showering/Bathing: No Showering Other/Special Instructions: Home health to follow up to discuss hospice care and follow up with oncology and PCP. - Discharge Plan *PRESCRIPTION DRUG MONITORING PROGRAM REVIEWED*: No *COPY OF PRESCRIPTION DRUG MONITORING REPORT IN PATIENT CAMILO: No Prescriptions/Med Rec: Amiodarone [Cordarone] 200 mg PO DAILY #30 tablet Digoxin 125 mcg PO DAILY #30 tablet Furosemide [Lasix] 40 mg PO BID #60 tab Metoprolol Succinate [Toprol XL 100mg] 100 mg PO BID #60 tab.er Home Medications: Home Meds Isosorbide Mononitrate [Imdur] 60 mg PO BID 05/11/21 [History] LORazepam [Ativan] 1 mg PO TID PRN 05/11/21 [History] Magnesium 250 mg PO DAILY 07/11/21 [History] Morphine [MS Contin] 15 mg PO QPM 07/11/21 [History] Morphine [MS Contin] 30 mg PO BID 07/11/21 [History] Ondansetron [Zofran] 8 mg PO TID PRN 07/11/21 [History] Prochlorperazine Maleate [Compazine] 10 mg PO QID PRN 07/11/21 [History] oxyCODONE HCl/Acetaminophen [Oxycodone-Acetaminophen 5-325] 1 tab PO Q6HR PRN 07/11/21 [History] Amiodarone [Cordarone] 200 mg PO DAILY #30 tablet 07/17/21 [Rx] Digoxin 125 mcg PO DAILY #30 tablet 07/17/21 [Rx] Furosemide [Lasix] 40 mg PO BID #60 tab 07/17/21 [Rx] Metoprolol Succinate [Toprol XL 100mg] 100 mg PO BID #60 tab.er 07/17/21 [Rx] Patient Handouts: Heart Failure, Self Care, Sepsis, Self Care, Adult Forms: ED Department Discharge Referrals: Jackie Lopez MD [Primary Care Provider] - 07/24/21 4:15 pm (Please arrive at 1600 for check in) Tutu Hodge MD [Ordering Only Provider] - (Continue to follow up as per plan) - Discharge Summary/Plan Comment DC Time >30 min.: Yes Total # of Minutes for Discharge Time: 45 min. Total time spent includes seeing the patient, doing discharge paperwork, and arranging care. - General Info Date of Service: 07/17/21 Admission Dx/Problem (Free Text: Admission Diagnosis/Problem Admission Diagnosis/Problem Atrial fibrillation with rapid ventricular response, widely metastatic cancer with bladder as primary, acute hemorrhage from bladder. Subjective Update: Family is at bedside. Patient is resting comfortably without any complaints. Functional Status: Reports: Pain Controlled - Review of Systems General: Reports: No Symptoms HEENT: Reports: No Symptoms Pulmonary: Reports: No Symptoms Cardiovascular: Reports: No Symptoms Gastrointestinal: Reports: No Symptoms Musculoskeletal: Reports: No Symptoms - Patient Data Vitals - Most Recent: Last Vital Signs Temp 97.5 F 07/17/21 08:00 Pulse 82 07/16/21 20:00 Resp 15 07/17/21 08:00 BP 94/52 L 07/17/21 08:00 Pulse Ox 93 L 07/17/21 08:00 Weight - Most Recent: 152 lb 6.4 oz I&O - Last 24 hours: Intake & Output 07/16/21 07/17/21 07/17/21 22:59 06:59 14:59 Intake Total 500 486 Output Total 805 210 60 Balance -305 276 -60 Lab Results - Last 24 hrs: Laboratory Results - last 24 hr 07/17/21 07/17/21 Range/Units 05:25 05:25 WBC 12.77 H (3.98-10.04) K/mm3 RBC 3.28 L (3.98-5.22) M/mm3 Hgb 9.0 L (11.2-15.7) gm/dl Hct 30.1 L (34.1-44.9) % MCV 91.8 (79.4-94.8) fl MCH 27.4 (25.6-32.2) pg MCHC 29.9 L (32.2-35.5) g/dl RDW Std Deviation 56.8 H (36.4-46.3) fL Plt Count 92 L (182-369) K/mm3 MPV 10.4 (9.4-12.3) fl Neut % (Auto) 92.7 H (34.0-71.1) % Lymph % (Auto) 2.5 L (19.3-51.7) % Daggett % (Auto) 3.1 L (4.7-12.5) % Eos % (Auto) 1.2 (0.7-5.8) Baso % (Auto) 0.1 (0.1-1.2) % Neut # (Auto) 11.85 H (1.56-6.13) K/mm3 Lymph # (Auto) 0.32 L (1.18-3.74) K/mm3 Daggett # (Auto) 0.39 H (0.24-0.36) K/mm3 Eos # (Auto) 0.15 (0.04-0.36) K/mm3 Baso # (Auto) 0.01 (0.01-0.08) K/mm3 Manual Slide Review Abnormal smear Sodium 143 (136-145) mEq/L Potassium 4.0 (3.5-5.1) mEq/L Chloride 107 (98-107) mEq/L Carbon Dioxide 31 (21-32) mEq/L Anion Gap 9.0 (5-15) BUN 26 H (7-18) mg/dL Creatinine 0.8 (0.55-1.02) mg/dL Est Cr Clr Drug Dosing 55.70 mL/min Estimated GFR (MDRD) > 60 (>60) mL/min BUN/Creatinine Ratio 32.5 H (14-18) Glucose 121 H (70-99) mg/dL Calcium 8.5 (8.5-10.1) mg/dL Magnesium 2.0 (1.8-2.4) mg/dL RACHEL Results - Last 24 hrs: Microbiology 07/11/21 07:00 Blood Culture - Final Blood - Venous - Lab Draw 07/11/21 06:58 Blood Culture - Final Blood - Venous Med Orders - Current: Current Medications Amiodarone HCl (Amiodarone 200 Mg Tab) 200 mg PO DAILY [facility] Digoxin (Digoxin 125 Mcg Tab) 125 mcg PO DAILY [facility] Last Admin: 07/16/21 09:11 Dose: 125 mcg Documented by: Furosemide (Furosemide 40 Mg/4 Ml Vial) 40 mg IVPUSH DAILY [facility] Last Admin: 07/17/21 08:31 Dose: 40 mg Documented by: Furosemide (Furosemide 20 Mg/2 Ml Vial) 20 mg IVPUSH Q24H [facility] Last Admin: 07/16/21 14:33 Dose: 20 mg Documented by: Ceftriaxone Sodium 2 gm/ (Sodium Chloride) 100 mls @ 200 mls/hr IV Q24H [facility] Last Admin: 07/17/21 08:26 Dose: 200 mls/hr Documented by: Amiodarone HCl/Dextrose (Nexterone In Dextrose 360 Mg/200 Ml) 360 mg in 200 mls @ 33.333 mls/hr IV ASDIRECTED [facility]; Protocol Last Admin: 07/16/21 21:59 Dose: 16.7 mls/hr Documented by: Isosorbide Mononitrate (Isosorbide Mononitrate 60 Mg Tab.Er) 60 mg PO BID [facility] Last Admin: 07/16/21 20:00 Dose: 60 mg Documented by: Lorazepam (Lorazepam 1 Mg Tab) 1 mg PO TID PRN PRN Reason: Anxiety Last Admin: 07/17/21 03:37 Dose: 1 mg Documented by: Magnesium Oxide (Magnesium Oxide 400 Mg Tab) 400 mg PO DAILY [facility] Last Admin: 07/16/21 09:09 Dose: 400 mg Documented by: Metoprolol Succinate (Metoprolol Succinate 50 Mg Tab.Er) 100 mg PO BID [facility] Last Admin: 07/16/21 20:00 Dose: 100 mg Documented by: Morphine Sulfate (Morphine 15 Mg Tab.Er) 15 mg PO DAILY@1200 [facility] Last Admin: 07/16/21 11:20 Dose: 15 mg Documented by: Morphine Sulfate (Morphine 15 Mg Tab.Er) 30 mg PO BID@0400,2000 [facility] Last Admin: 07/17/21 03:37 Dose: 30 mg Documented by: Nystatin (Nystatin Susp 100,000 Unit/Ml 5 Ml Ud Cup) 5 ml PO TID [facility] Last Admin: 07/17/21 08:36 Dose: 5 ml Documented by: Ondansetron HCl (Ondansetron 4 Mg Tab.Dis) 8 mg PO TID PRN PRN Reason: Nausea Oxycodone/Acetaminophen (Acetaminophen/Oxycodone 325-5 Mg Tab) 1 tab PO Q6H PRN PRN Reason: Pain (severe 7-10) Prochlorperazine Maleate (Prochlorperazine 5 Mg Tab) 10 mg PO QID PRN PRN Reason: Vomiting Simethicone (Simethicone 80 Mg Tab.Chew) 80 mg PO Q6H PRN PRN Reason: Gas Last Admin: 07/17/21 03:37 Dose: 80 mg Documented by: Discontinued Medications Digoxin (Digoxin 500 Mcg/2 Ml Amp) 250 mcg IVPUSH ONETIME ONE Stop: 07/11/21 10:16 Last Admin: 07/11/21 10:26 Dose: 250 mcg Documented by: Digoxin (Digoxin 500 Mcg/2 Ml Amp) 125 mcg IVPUSH ONETIME ONE Stop: 07/11/21 12:31 Last Admin: 07/11/21 18:04 Dose: Not Given Documented by: Digoxin (Digoxin 500 Mcg/2 Ml Amp) 125 mcg IVPUSH ONETIME ONE Stop: 07/11/21 14:31 Last Admin: 07/11/21 14:32 Dose: 125 mcg Documented by: Digoxin (Digoxin 500 Mcg/2 Ml Amp) 125 mcg IVPUSH ONETIME ONE Stop: 07/11/21 18:31 Last Admin: 07/11/21 18:28 Dose: 125 mcg Documented by: Digoxin (Digoxin 500 Mcg/2 Ml Amp) 125 mcg IVPUSH DAILY [facility] Last Admin: 07/14/21 08:01 Dose: 125 mcg Documented by: Digoxin (Digoxin 125 Mcg Tab) 125 mcg PO DAILY [facility] Last Admin: 07/15/21 08:06 Dose: 125 mcg Documented by: Diltiazem HCl (Diltiazem 50 Mg/10 Ml Sdv) 5 mg IVPUSH ONETIME ONE Stop: 07/11/21 07:21 Last Admin: 07/11/21 07:37 Dose: 5 mg Documented by: Diltiazem HCl (Diltiazem 50 Mg/10 Ml Sdv) 10 mg IVPUSH ONETIME ONE Stop: 07/11/21 08:43 Last Admin: 07/11/21 08:49 Dose: 10 mg Documented by: Diltiazem HCl (Diltiazem 50 Mg/10 Ml Sdv) 10 mg IVPUSH ONETIME ONE Stop: 07/11/21 09:37 Last Admin: 07/11/21 09:53 Dose: 10 mg Documented by: Diltiazem HCl (Diltiazem 50 Mg/10 Ml Sdv) 10 mg IVPUSH ONETIME ONE Stop: 07/11/21 09:54 Last Admin: 07/11/21 10:44 Dose: Not Given Documented by: Diltiazem HCl (Diltiazem Ir 30 Mg Tab) 30 mg PO ONETIME ONE Stop: 07/14/21 12:38 Last Admin: 07/14/21 12:51 Dose: 30 mg Documented by: Diltiazem HCl (Diltiazem Ir 30 Mg Tab) 30 mg PO Q6HR [facility]IKY Last Admin: 07/15/21 06:05 Dose: 30 mg Documented by: Diltiazem HCl (Diltiazem Ir 30 Mg Tab) 30 mg PO ONETIME ONE Stop: 07/15/21 08:26 Last Admin: 07/15/21 08:41 Dose: 30 mg Documented by: Diltiazem HCl (Diltiazem Ir 60 Mg Tab) 60 mg PO Q6HR RIKY Last Admin: 07/15/21 13:35 Dose: Not Given Documented by: Furosemide (Furosemide 40 Mg/4 Ml Vial) 40 mg IVPUSH NOW ONE Stop: 07/11/21 14:01 Last Admin: 07/11/21 12:34 Dose: 40 mg Documented by: Furosemide (Furosemide 40 Mg/4 Ml Vial) 40 mg IVPUSH NOW ONE Stop: 07/11/21 18:31 Last Admin: 07/11/21 18:28 Dose: 40 mg Documented by: Cefepime HCl 2 gm/ Sodium (Chloride) 50 mls @ 100 mls/hr IV ONETIME ONE Stop: 07/11/21 07:43 Last Admin: 07/11/21 07:32 Dose: 100 mls/hr Documented by: Sodium Chloride (Normal Saline) 1,000 mls @ 75 mls/hr IV ASDIRECTED RIKY Last Admin: 07/13/21 23:08 Dose: 75 mls/hr Documented by: Diltiazem HCl 100 mg/ Sodium (Chloride) 100 mls @ 10 mls/hr IV TITRATE [facility]IKY; Protocol Last Titration: 07/15/21 15:15 Dose: 20 mg/hr, 20 mls/hr Documented by: Diltiazem HCl 100 mg/ Sodium (Chloride) 100 mls @ 10 mls/hr IV TITRATE [facility] Last Infusion: 07/11/21 18:40 Dose: 10 mg/hr, 10 mls/hr Documented by: Potassium Chloride 10 meq/ (Premix) 100 mls @ 100 mls/hr IV Q1H RIKY Stop: 07/13/21 09:29 Last Admin: 07/13/21 07:43 Dose: Not Given Documented by: Potassium Chloride 10 meq/ (Premix) 100 mls @ 100 mls/hr IV Q1H RIKY Stop: 07/14/21 12:29 Last Admin: 07/14/21 11:52 Dose: 100 mls/hr Documented by: Sodium Chloride (Normal Saline) 100 mls @ 60 mls/hr IV ASDIRECTED [facility] Stop: 07/15/21 11:00 Last Admin: 07/15/21 10:02 Dose: 60 mls/hr Documented by: Amiodarone HCl/Dextrose (Nexterone In Dextrose 150 Mg/100 Ml) 100 mls @ 600 mls/hr IV .BOLUS ONE; Protocol Stop: 07/15/21 17:58 Last Admin: 07/15/21 18:16 Dose: 600 mls/hr Documented by: Iopamidol (Iopamidol 755 Mg/Ml 100 Ml Bottle) 100 ml IVPUSH ONETIME ONE Stop: 07/15/21 08:43 Last Admin: 07/15/21 10:02 Dose: 100 ml Documented by: Magnesium Hydroxide (Magnesium Hydroxide 400 Mg/5 Ml Susp 30 Ml Cup) 30 ml PO ONETIME ONE Stop: 07/16/21 14:24 Last Admin: 07/16/21 14:41 Dose: 30 ml Documented by: Metoprolol Succinate (Metoprolol Succinate 25 Mg Tab.Er) 75 mg PO BID [facility] Last Admin: 07/15/21 08:05 Dose: 75 mg Documented by: Non-Formulary Medication (Olanzapine) 10 mg PO BEDTIME [facility] Last Admin: 07/11/21 22:00 Dose: Not Given Documented by: Potassium Chloride (Potassium Chloride 20 Meq Tab.Er) 40 meq PO ONETIME ONE Stop: 07/13/21 07:16 Last Admin: 07/13/21 08:04 Dose: 40 meq Documented by: Potassium Chloride (Potassium Chloride 20 Meq Tab.Er) 40 meq PO ONETIME ONE Stop: 07/14/21 08:01 Last Admin: 07/14/21 07:59 Dose: 40 meq Documented by: Potassium Chloride (Potassium Chloride 20 Meq Tab.Er) 40 meq PO ONETIME ONE Stop: 07/14/21 21:01 Last Admin: 07/14/21 20:59 Dose: 40 meq Documented by: Potassium Chloride (Potassium Chloride 20 Meq Tab.Er) 40 meq PO ONETIME ONE Stop: 07/15/21 11:31 Last Admin: 07/15/21 12:35 Dose: 40 meq Documented by: Potassium Chloride (Potassium Chloride 20 Meq Tab.Er) 40 meq PO BID RIKY Stop: 07/16/21 21:01 Last Admin: 07/16/21 20:00 Dose: 40 meq Documented by: Sodium Chloride (Sodium Chloride 0.9% 10 Ml Syringe) 10 ml FLUSH ONETIME ONE Stop: 07/15/21 08:43 Last Admin: 07/15/21 10:02 Dose: 10 ml Documented by: - Exam Quality Assessment: Reports: Supplemental Oxygen General: Reports: Alert, Oriented HEENT: Reports: Pupils Equal, Mucous Membr. Moist/[place] Neck: Reports: Supple Lungs: Reports: Normal Respiratory Effort, Crackles Cardiovascular: Reports: Irregular Rhythm (Rate and rhythm) GI/Abdominal Exam: Normal Bowel Sounds, Soft, Non-Tender, No Distention Back Exam: Reports: Normal Inspection, Full Range of Motion Extremities: Non-Tender, Pedal Edema (1-2+) Skin: Reports: Warm, Dry, Intact Psy/Mental Status: Reports: Alert *Q Meaningful Use (DIS) - VTE *Q VTE Mechanical Contraindications *Q: At Risk for Falls VTE Pharmacological Contraindications *Q: Active Hemorrhage
--- NOTE | 2021-07-18 07:17 | PCM.EKG ---
#1 Interpretation EKG Date: 07/11/21 Time: 17:17 Rhythm: A-Fib (with rate 78-170/min) Rate (Beats/Min): 125 ST-T: Depressed (Mild ST segment depression P0-W-2--consider ree lateral ischemia. T wave inversion 1,AVL, V5 and V6) EKG Interpretation Comments: Abnormal ECG
== END 2021-07-17 14:00 | disposition home health service (06) | DRG 686 ==
LOC: JD.ED 05:07 → JD.ICU 15:11 → UNDOADMIN 15:45 → UNDODISIN 07-17 14:00
PROVIDERS: ADMIT Internal Medicine; ATTEND Family Medicine
PROC: 30233N1 Transfusion of Nonautologous Red Blood Cells into Peripheral Vein, Percutaneous Approach (ICD-10-PCS; principal; 2021-07-11)
DX: C67.9 Malignant neoplasm of bladder, unspecified (principal); J15.6 Pneumonia due to other Gram-negative bacteria; D62 Acute posthemorrhagic anemia; D64.9 Anemia, unspecified; I48.19 Other persistent atrial fibrillation; C78.01 Secondary malignant neoplasm of right lung; C78.7 Secondary malignant neoplasm of liver and intrahepatic bile duct; E86.9 Volume depletion, unspecified; J90 Pleural effusion, not elsewhere classified; C79.01 Secondary malignant neoplasm of right kidney and renal pelvis; E87.6 Hypokalemia; R31.0 Gross hematuria; Z66 Do not resuscitate; Z20.822 Contact with and (suspected) exposure to COVID-19; L89.159 Pressure ulcer of sacral region, unspecified stage; H54.7 Unspecified visual loss; D72.825 Bandemia; G89.3 Neoplasm related pain (acute) (chronic); D50.9 Iron deficiency anemia, unspecified; I50.9 Heart failure, unspecified; E87.5 Hyperkalemia; Z51.5 Encounter for palliative care; Z86.16 Personal history of COVID-19; Z88.0 Allergy status to penicillin; Z88.1 Allergy status to other antibiotic agents; Z88.8 Allergy status to other drugs, medicaments and biological substances; Z98.49 Cataract extraction status, unspecified eye; I25.2 Old myocardial infarction; Z95.5 Presence of coronary angioplasty implant and graft; Z87.442 Personal history of urinary calculi; Z79.899 Other long term (current) drug therapy; Z87.891 Personal history of nicotine dependence; Z79.01 Long term (current) use of anticoagulants
CPT/HCPCS: 36415; 36430; 36556; 36600; 71045; 80053 ×2; 82803; 83605 ×3; 83880; 84484 ×2; 85025; 85610; 85730; 86850; 86900; 86901; 86922; 87040 ×2; 93005; 94660; 96365; 96375; 96376; 99285; J0692; J1160 ×2; J1940 ×2; J3490 ×4; J7030; P9016 ×2; U0002; 51702; 71275; 71275-26; 80048; 80162; 81001; 83735; 84100; 84145; 85018; 85379; 86140; 93010; 93306; 93970; 93970-26; 94762; 97162-GP; 97530-GP; 99223; 99232; 99233; 99239; 99284; A9270-GY; J0282; J0696; J1642; J3480; Q9967